=== PATIENT | female | born 1975 | race American Indian/Alaskan Native ===

== ENCOUNTER 2018-02-23 19:10 | Emergency (ER) | payer SELFPAY ==
[2018-02-23 19:53] LABS: Basophils # (Auto) 0.3 K/mm3 (0.0-0.1); Basophils % (Auto) 2.6 % (0.0-1.8); Eosinophils # (Auto) 0.1 K/mm3 (0.0-0.4); Eosinophils % (Auto) 0.9 % (0.0-4.3); Hematocrit 39.1 % (30.3-42.9); Hemoglobin 13.7 gm/dl (10.1-14.3); Lymphocytes % (Auto) 20.7 % (13.4-35.0); Mean Corpuscular HGB Conc 35 % (30-34); Mean Corpuscular Hemoglobin 33 pg (28-32); Mean Corpuscular Volume 94 fl (79-97); Monocytes # (Auto) 0.9 K/mm3 (0.0-0.8); Monocytes % (Auto) 8.8 % (0.0-7.3); Platelet Count 334 K/mm3 (140-440); Red Blood Count 4.15 M/mm3 (3.65-5.03); Red Cell Distribution Width 13.1 % (13.2-15.2)
--- NOTE | 2018-02-23 19:57 | XRay Report ---
FINAL REPORT PROCEDURE: XR KNEE 3V RT TECHNIQUE: RIGHT knee radiographs, AP, lateral and oblique views. CPT 85497 HISTORY: right knee pain COMPARISON: No prior studies are available for comparison. FINDINGS: No evidence of fracture, dislocation or joint effusion. Small marginal osteophytic spurs project from the patellar femoral joint space. Joint spaces otherwise are well preserved. IMPRESSION: Mild osteoarthritic changes patellar femoral joint space otherwise negative exam..
[2018-02-23 20:18] LABS: Alanine Aminotransferase 21 units/L (7-56); Albumin 4.1 g/dL (3.9-5); BUN/Creatinine Ratio 13; Blood Urea Nitrogen 12 mg/dL (7-17); Calcium 8.8 mg/dL (8.4-10.2); Hemolysis Index 8; Lipase 33 units/L (13-60)
[2018-02-23 20:21] LABS: Bilirubin,Urine NEG (Negative); Blood,Urine NEG (Negative); Color,Urine Yellow (Yellow); Mucus,Urine FEW /HPF; Protein,Urine <15 mg/dL mg/dL (Negative); RBC,Urine < 1.0 /HPF (0.0-6.0); Urobilinogen,Urine < 2.0 mg/dL (<2.0); WBC,Urine < 1.0 /HPF (0.0-6.0)
[2018-02-24] MEDS ORDERED: ALUM-MAG HYDROX-SIMETH 200-200-20MG/5ML PO ONE (02:08)
[2018-02-24] MEDS ORDERED: LIDOCAINE VISCOUS 2% PO ONE (02:08)
[2018-02-24] MEDS ORDERED: PROTONIX PO ONE (02:09)
--- NOTE | 2018-02-24 02:18 | Emergency Department Report ---
ED Abdominal Pain HPI - General Chief Complaint: Abdominal Pain Stated Complaint: STOMACH,LEG PAIN,NAUSEA Time Seen by Provider: 02/24/18 02:02 Source: patient Mode of arrival: Ambulatory Limitations: No Limitations - History of Present Illness Initial Comments: 42-year-old woman with history of recurrent epigastric abdominal pain secondary to ulcers, has been noncompliant with medications for several months, and has been having exacerbation over the past several weeks of recurrent epigastric discomfort on an intermittent basis. She has not had any nausea or vomiting, no hematemesis, no melena, and abdominal pain is moderate in intensity, localized to the epigastrium, and without radiation.. Patient also has a secondary complaint of chronic pain of her right knee, atraumatic, which has been developing over months. She's not had any prior evaluation for this, but has routine aching of moderate intensity, without radiation, without focal weakness of the lower extremity. Left knee is not tender. MD Complaint: abdominal pain -: Gradual, week(s) (3-4) Location: epigastric Radiation: none Migration to: no migration Severity scale (0 -10): 6 Quality: aching Improves With: eating Worsens With: nothing Associated Symptoms: denies: nausea, vomiting, constipation, hematemesis, hematochezia, melena Treatments Prior to Arrival: antacids - Related Data LMP (females 10-50): other (prior tubal ligation) Previous Rx's Medication Instructions Recorded Last Taken Type Lidocaine Viscous 2% 5 ml PO QID PRN #100 ml 02/24/18 Unknown Rx Omeprazole 20 mg PO DAILY #30 tablet. 02/24/18 Unknown Rx traMADol [Ultram 50 MG tab] 50 mg PO Q6HR PRN #30 tablet 02/24/18 Unknown Rx Allergies Allergy/AdvReac Type Severity Reaction Status Date / Time No Known Allergies Allergy Unverified 02/23/18 19:25 ED Review of Systems ROS: Stated complaint: STOMACH,LEG PAIN,NAUSEA Other details as noted in HPI Constitutional: denies: chills, fever Eyes: denies: eye pain, eye discharge, vision change ENT: denies: ear pain, throat pain Respiratory: denies: cough, shortness of breath, wheezing Cardiovascular: denies: chest pain, palpitations Endocrine: no symptoms reported Gastrointestinal: as per HPI, abdominal pain, nausea. denies: vomiting, diarrhea, constipation, hematemesis, melena, hematochezia Genitourinary: denies: urgency, dysuria, discharge Musculoskeletal: denies: back pain, joint swelling, arthralgia Skin: denies: rash, lesions Neurological: denies: headache, weakness, paresthesias Psychiatric: denies: anxiety, depression Hematological/Lymphatic: denies: easy bleeding, easy bruising ED Past Medical Hx - Past Medical History Hx Hypertension: Yes Hx GERD: Yes (ulcer disease) Additional medical history: Gastric Ulcers - Surgical History Hx Cholecystectomy: Yes Additional Surgical History: C section X4. Hysterectomy. Tubal ligation. - Social History Smoking Status: Never Smoker Substance Use Type: None - Medications Home Medications: Home Medications Medication Instructions Recorded Confirmed Last Taken Type Lidocaine Viscous 2% 5 ml PO QID PRN #100 ml 02/24/18 Unknown Rx Omeprazole 20 mg PO DAILY #30 tablet. 02/24/18 Unknown Rx traMADol [Ultram 50 MG tab] 50 mg PO Q6HR PRN #30 tablet 02/24/18 Unknown Rx ED Physical Exam - General Limitations: No Limitations General appearance: alert, in no apparent distress - Head Head exam: Present: atraumatic, normocephalic - Eye Eye exam: Present: normal appearance - ENT ENT exam: Present: mucous membranes moist - Neck Neck exam: Present: normal inspection - Respiratory Respiratory exam: Present: normal lung sounds bilaterally. Absent: respiratory distress - Cardiovascular Cardiovascular Exam: Present: regular rate, normal rhythm. Absent: systolic murmur, diastolic murmur, rubs, gallop - GI/Abdominal GI/Abdominal exam: Present: soft, tenderness (epigastrium, without radiation), normal bowel sounds. Absent: guarding, rebound - Rectal Rectal exam: Present: deferred - Extremities Exam Extremities exam: Present: normal inspection - Back Exam Back exam: Present: normal inspection - Neurological Exam Neurological exam: Present: alert, oriented X3 - Psychiatric Psychiatric exam: Present: normal affect, normal mood - Skin Skin exam: Present: warm, dry, intact, normal color. Absent: rash ED Course Vital Signs 02/23/18 19:18 Temperature 98.5 F Pulse Rate 74 Respiratory 16 Rate Blood Pressure 170/106 O2 Sat by Pulse 97 Oximetry - Reevaluation(s) Reevaluation #1: 02/24/18 03:03 Patient significantly improved after oral GI cocktail and pantoprazole, still has mild discomfort, abdomen and skin benign, and she feels ready for discharge home. ED Medical Decision Making - Lab Data Result diagrams: 02/23/18 19:30 02/23/18 19:30 - Radiology Data Radiology results: report reviewed Patient has mild patellofemoral osteoarthritis with osteophyte formation in the right knee joint, but otherwise no fracture or dislocation or bony lucencies. - Medical Decision Making Patient has a clinically benign abdomen with mild localized tenderness in the epigastrium, with known history of gastritis secondary to ulcer disease, and noncompliance with medications. Patient was medicated with topical lidocaine ingested orally, with significant relief. Patient also has x-ray findings of early arthritis, which she can treat with rest, cool compresses, and routine use of tramadol, since she has gastritis, which would likely be exacerbated by nonsteroidal anti-inflammatories - Differential Diagnosis gastritis, ulcer exacerbation, osteoarthritis knee Critical Care Time: No Critical care attestation.: If time is entered above; I have spent that time in minutes in the direct care of this critically ill patient, excluding procedure time. ED Disposition Clinical Impression: Gastritis Qualifiers: Gastritis type: unspecified gastritis Chronicity: acute Disposition: DC-01 TO HOME OR SELFCARE Is pt being admited?: No Does the pt Need Aspirin: No Condition: Stable Instructions: Osteoarthritis (ED) Additional Instructions: Resume taking her antacids, and we have provided a prescription for omeprazole to take daily. He may provide supplements with Mylanta or Maalox, and avoid spicy foods and fatty foods, and greasy foods. You also have arthritis of her right knee, which is degenerative, which her case is mild, and this can be treated with mild pain medication, tramadol, and cool compresses when you have exacerbations. Have follow-up with your doctor for further care. We recommended to avoid the use of [id number] medication such as NSAIDs, as this will aggravate her pre-existing gastritis, which he can take Tylenol for mild discomfort. He checked by her doctor in the following week. Prescriptions: Lidocaine Viscous 2% 5 ml PO QID PRN #100 ml PRN Reason: Pain Omeprazole 20 mg PO DAILY #30 tablet. traMADol [Ultram 50 MG tab] 50 mg PO Q6HR PRN #30 tablet PRN Reason: Pain Referrals: BRITTANI GALAN MD [Primary Care Provider] - 3-5 Days Time of Disposition: 02:22
[2018-02-24 03:13] VITALS: BP 168/89
== END 2018-02-24 03:13 | disposition home or self-care (01) ==
LOC: ED 19:10
DX: K29.70 Gastritis, unspecified, without bleeding (principal); I10 Essential (primary) hypertension; K21.9 Gastro-esophageal reflux disease without esophagitis; Z90.49 Acquired absence of other specified parts of digestive tract; Z90.710 Acquired absence of both cervix and uterus; Z98.51 Tubal ligation status
CPT/HCPCS: 36415; 80053; 81001; 83690; 85025; 99284

== ENCOUNTER 2018-07-08 08:55 | Emergency (ER) | payer OTHER, MEDICARE ==
--- NOTE | 2018-07-08 10:21 | Emergency Department Report ---
Minor Respiratory - HPI Chief Complaint: Upper Respiratory Infection Stated Complaint: STOMACH PAIN FLU Time Seen by Provider: 07/08/18 10:12 Duration: 3 Days Pain Location: Chest Severity: moderate Minor Respiratory: Yes Rhinorrhea, Yes Able to Tolerate Fluids, Yes Cough ( document of yellow sputum), Yes Fever (subjective), No Sore Throat, No Ear Pain , No Sick Contacts, No Hemoptysis, No Chest Pain, No Shortness of Breath ED Review of Systems ROS: Stated complaint: STOMACH PAIN FLU Other details as noted in HPI Comment: All other systems reviewed and negative ED Past Medical Hx - Past Medical History Hx Hypertension: Yes Hx GERD: Yes (ulcer disease) Additional medical history: Gastric Ulcers - Surgical History Past Surgical History?: Yes Hx Cholecystectomy: Yes Additional Surgical History: C section X4. Hysterectomy. Tubal ligation. - Social History Smoking Status: Never Smoker Substance Use Type: None - Medications Home Medications: Home Medications Medication Instructions Recorded Confirmed Last Taken Type Lidocaine Viscous 2% 5 ml PO QID PRN #100 ml 02/24/18 Unknown Rx Omeprazole 20 mg PO DAILY #30 tablet. 02/24/18 Unknown Rx traMADol [Ultram 50 MG tab] 50 mg PO Q6HR PRN #30 tablet 02/24/18 Unknown Rx ALBUTEROL Inhaler (OR & NICU) 2 puff IH QID PRN #1 inhalation 07/08/18 Unknown Rx [ProAir HFA Inhaler] Azithromycin [Zithromax] 250 mg PO DAILY #6 tablet 07/08/18 Unknown Rx Benzonatate [Tessalon Perles] 100 mg PO Q8HR #10 capsule 07/08/18 Unknown Rx predniSONE [Deltasone] 20 mg PO QDAY #5 tab 07/08/18 Unknown Rx Minor Respiratory Exam - Exam General: Vital signs noted. No distress. Alert and acting appropriately. HEENT: Yes Moist Mucous Membranes, No Pharyngeal Erythema, No Pharyngeal Exudates, No Rhinorrhea, No Conjuctival Injection, No Frontal Tenderness, No Maxillary Tenderness Ear: Neither TM Bulge, Neither TM Erythema, Neither EAC Pain, Neither EAC Discharge Neck: Yes Supple, No Adenopathy Lungs: Yes Good Air Exchange, No Wheezes, No Ronchi, No Stridor, No Cough, No Labored Respirations, No Retractions, No Use of Accessory Muscles, No Other Abnormal Lung Sounds Heart: Yes Regular, No Murmur Abdomen: Yes Normal Bowel Sounds, No Tenderness, No Peritoneal Signs Skin: No Rash, No Edema Neurologic: Alert and oriented, no deficits. Musculoskeletal: Unremarkable. ED Course Vital Signs 07/08/18 09:30 Temperature 99.2 F Pulse Rate 73 Respiratory 16 Rate Blood Pressure 161/100 O2 Sat by Pulse 100 Oximetry ED Medical Decision Making - Medical Decision Making She'll be treated for smokers bronchitis and be discharged home. Critical care attestation.: If time is entered above; I have spent that time in minutes in the direct care of this critically ill patient, excluding procedure time. ED Disposition Clinical Impression: Upper respiratory infection Qualifiers: URI type: unspecified URI Qualified Code(s): J06.9 - Acute upper respiratory infection, unspecified Disposition: - TO HOME OR SELFCARE Is pt being admited?: No Does the pt Need Aspirin: No Condition: Stable Instructions: Upper Respiratory Infection (ED) Referrals: PRIMARY CARE, [Primary Care Provider] - 3-5 Days Time of Disposition: 10:21
[2018-07-08 10:34] VITALS: BP 152/76
== END 2018-07-08 10:32 | disposition home or self-care (01) ==
LOC: ED 08:55
DX: J06.9 Acute upper respiratory infection, unspecified (principal); I10 Essential (primary) hypertension; K21.9 Gastro-esophageal reflux disease without esophagitis; Z90.710 Acquired absence of both cervix and uterus; Z98.51 Tubal ligation status
CPT/HCPCS: 99282

== ENCOUNTER 2018-08-25 08:55 | Emergency (ER) | payer OTHER, MEDICARE ==
[2018-08-25 09:08] VITALS: BP 144/98
--- NOTE | 2018-08-25 10:20 | Emergency Department Report ---
ED ENT HPI - General Chief complaint: Dental/Oral Stated complaint: TOOTHACHE Time Seen by Provider: 08/25/18 10:01 Source: patient Mode of arrival: Ambulatory Limitations: No Limitations - History of Present Illness Initial comments: This is a 42-year-old female nontoxic, well nourished in appearance, no acute signs of distress presents to the ED with c/o of right lower toothache 2 weeks. Patient denies following up with a dentist. Patient otherwise denies any head trauma. Patient describes toothache as aching level of 8 out of 10. Patient denies any facial swelling. Patient denies any numbness, tingling, fever, chills, headache, stiff neck, abdominal pain, chest pain, shortness of breath. Patient denies any drug allergies. MD complaint: tooth pain -: week(s) (2) Location: tooth # 1 - pain here Severity: mild Severity scale (0 -10): 8 Quality: aching Consistency: constant Improves with: none Worsens with: none Context- Dental: history of dental caries, poor dental care Associated Symptoms: gum swelling, toothache. denies: fever, cough, pain with swallowing, sore throat, tinnitus, hearing loss, discharge from ear, rhinorrhea - Related Data Previous Rx's Medication Instructions Recorded Last Taken Type Lidocaine Viscous 2% 5 ml PO QID PRN #100 ml 02/24/18 Unknown Rx Omeprazole 20 mg PO DAILY #30 tablet 02/24/18 Unknown Rx traMADol [Ultram 50 MG tab] 50 mg PO Q6HR PRN #30 tablet 02/24/18 Unknown Rx ALBUTEROL Inhaler (OR & NICU) 2 puff IH QID PRN #1 inhalation 07/08/18 Unknown Rx [ProAir HFA Inhaler] Azithromycin [Zithromax] 250 mg PO DAILY #6 tablet 07/08/18 Unknown Rx Benzonatate [Tessalon Perles] 100 mg PO Q8HR #10 capsule 07/08/18 Unknown Rx predniSONE [Deltasone] 20 mg PO QDAY #5 tab 07/08/18 Unknown Rx Acetaminophen/Codeine [Tylenol 1 tab PO Q6H PRN #12 tab 08/25/18 Unknown Rx /Codeine # 3 tab] Amoxicillin/K Clav Tab [Augmentin 1 tab PO Q12HR #20 tab 08/25/18 Unknown Rx 875 mg] Chlorhexidine Mouthwash [Peridex] 15 ml MM BID #1 bottle 08/25/18 Unknown Rx Allergies Allergy/AdvReac Type Severity Reaction Status Date / Time No Known Allergies Allergy Verified 08/25/18 09:01 ED Dental HPI - General Chief complaint: Dental/Oral Stated complaint: TOOTHACHE Time Seen by Provider: 08/25/18 10:01 Source: patient Mode of arrival: Ambulatory Limitations: No Limitations - Related Data Previous Rx's Medication Instructions Recorded Last Taken Type Lidocaine Viscous 2% 5 ml PO QID PRN #100 ml 02/24/18 Unknown Rx Omeprazole 20 mg PO DAILY #30 tablet. 02/24/18 Unknown Rx traMADol [Ultram 50 MG tab] 50 mg PO Q6HR PRN #30 tablet 02/24/18 Unknown Rx ALBUTEROL Inhaler (OR & NICU) 2 puff IH QID PRN #1 inhalation 07/08/18 Unknown Rx [ProAir HFA Inhaler] Azithromycin [Zithromax] 250 mg PO DAILY #6 tablet 07/08/18 Unknown Rx Benzonatate [Tessalon Perles] 100 mg PO Q8HR #10 capsule 07/08/18 Unknown Rx predniSONE [Deltasone] 20 mg PO QDAY #5 tab 07/08/18 Unknown Rx Acetaminophen/Codeine [Tylenol 1 tab PO Q6H PRN #12 tab 08/25/18 Unknown Rx /Codeine # 3 tab] Amoxicillin/K Clav Tab [Augmentin 1 tab PO Q12HR #20 tab 08/25/18 Unknown Rx 875 mg] Chlorhexidine Mouthwash [Peridex] 15 ml MM BID #1 bottle 08/25/18 Unknown Rx Allergies Allergy/AdvReac Type Severity Reaction Status Date / Time No Known Allergies Allergy Verified 08/25/18 09:01 ED Review of Systems ROS: Stated complaint: TOOTHACHE Other details as noted in HPI Constitutional: denies: chills, fever Eyes: denies: eye pain, eye discharge, vision change ENT: dental pain. denies: ear pain, throat pain Respiratory: denies: cough, shortness of breath, wheezing Cardiovascular: denies: chest pain, palpitations Endocrine: no symptoms reported Gastrointestinal: denies: abdominal pain, nausea, diarrhea Genitourinary: denies: urgency, dysuria, discharge Musculoskeletal: denies: back pain, joint swelling, arthralgia Skin: denies: rash, lesions Neurological: denies: headache, weakness, paresthesias Psychiatric: denies: anxiety, depression Hematological/Lymphatic: denies: easy bleeding, easy bruising ED Past Medical Hx - Past Medical History Hx Hypertension: Yes Hx GERD: Yes (ulcer disease) Additional medical history: Gastric Ulcers - Surgical History Hx Cholecystectomy: Yes Additional Surgical History: C section X4. Hysterectomy. Tubal ligation. - Social History Smoking Status: Never Smoker Substance Use Type: None - Medications Home Medications: Home Medications Medication Instructions Recorded Confirmed Last Taken Type Lidocaine Viscous 2% 5 ml PO QID PRN #100 ml 02/24/18 Unknown Rx Omeprazole 20 mg PO DAILY #30 tablet. 02/24/18 Unknown Rx traMADol [Ultram 50 MG tab] 50 mg PO Q6HR PRN #30 tablet 02/24/18 Unknown Rx ALBUTEROL Inhaler (OR & NICU) 2 puff IH QID PRN #1 inhalation 07/08/18 Unknown Rx [ProAir HFA Inhaler] Azithromycin [Zithromax] 250 mg PO DAILY #6 tablet 07/08/18 Unknown Rx Benzonatate [Tessalon Perles] 100 mg PO Q8HR #10 capsule 07/08/18 Unknown Rx predniSONE [Deltasone] 20 mg PO QDAY #5 tab 07/08/18 Unknown Rx Acetaminophen/Codeine [Tylenol 1 tab PO Q6H PRN #12 tab 08/25/18 Unknown Rx /Codeine # 3 tab] Amoxicillin/K Clav Tab [Augmentin 1 tab PO Q12HR #20 tab 08/25/18 Unknown Rx 875 mg] Chlorhexidine Mouthwash [Peridex] 15 ml MM BID #1 bottle 08/25/18 Unknown Rx ED Physical Exam - General Limitations: No Limitations General appearance: alert, in no apparent distress - Head Head exam: Present: atraumatic, normocephalic - Eye Eye exam: Present: normal appearance - ENT ENT exam: Present: mucous membranes moist - Expanded ENT Exam Expanded Ear exam: Present: normal external inspection Mouth exam: Present: normal external inspection, tongue normal. Absent: drooling, trismus, muffled voice Teeth exam: Present: dental caries, fractured tooth #, dental tenderness #, gingival enlargement, other (no facial swelling) 1 - Fractured, Dental Tenderness Throat exam: Positive: other (Uvula midline. No abscess or swelling noted.). Negative: tonsillar erythema, tonsillomegaly, tonsillar exudate, R peritonsillar mass, L peritonsillar mass - Neck Neck exam: Present: normal inspection, full ROM. Absent: tenderness, meningismus, lymphadenopathy - Respiratory Respiratory exam: Present: normal lung sounds bilaterally. Absent: respiratory distress, wheezes, rales, rhonchi, stridor, chest wall tenderness, accessory muscle use, decreased breath sounds, prolonged expiratory - Cardiovascular Cardiovascular Exam: Present: regular rate, normal rhythm, normal heart sounds. Absent: irregular rhythm, systolic murmur, diastolic murmur, rubs, gallop - GI/Abdominal GI/Abdominal exam: Present: soft, normal bowel sounds - Extremities Exam Extremities exam: Present: normal inspection - Back Exam Back exam: Present: normal inspection - Neurological Exam Neurological exam: Present: alert, oriented X3 - Psychiatric Psychiatric exam: Present: normal affect, normal mood - Skin Skin exam: Present: warm, dry, intact, normal color. Absent: rash ED Course Vital Signs 08/25/18 09:01 Temperature 98.3 F Pulse Rate 70 Respiratory 18 Rate Blood Pressure 144/98 O2 Sat by Pulse 99 Oximetry - Reevaluation(s) Reevaluation #1: 08/25/18 10:21 Patient is speaking in full sentences with no signs of distress noted. Critical care attestation.: If time is entered above; I have spent that time in minutes in the direct care of this critically ill patient, excluding procedure time. ED Disposition Clinical Impression: Dental caries, Gingivitis Disposition: - TO HOME OR SELFCARE Is pt being admited?: No Does the pt Need Aspirin: No Condition: Stable Instructions: Dental Caries (ED), Gingivitis (ED) Additional Instructions: Follow-up with a dentist doctor in 3-5 days or if symptoms worsen and continue return to emergency room as soon as possible. Do not operate any machinery while taking Tylenol with codeine as this may cause drowsiness. Prescriptions: Acetaminophen/Codeine [Tylenol /Codeine # 3 tab] 1 tab PO Q6H PRN #12 tab PRN Reason: Pain , Severe (7-10) Amoxicillin/K Clav Tab [Augmentin 875 mg] 1 tab PO Q12HR #20 tab Chlorhexidine Mouthwash [Peridex] 15 ml MM BID #1 bottle Referrals: PRIMARY CARE, [Primary Care Provider] - 3-5 Days AVILA VIRK [Registered Nurse] - 3-5 Days [facility] [Outside] - 3-5 Days Forms: Work/School Release Form(ED)
== END 2018-08-25 10:39 | disposition home or self-care (01) ==
LOC: ED 08:55
DX: K02.9 Dental caries, unspecified (principal); K05.00 Acute gingivitis, plaque induced; I10 Essential (primary) hypertension; K21.9 Gastro-esophageal reflux disease without esophagitis; Z90.49 Acquired absence of other specified parts of digestive tract; Z98.51 Tubal ligation status; Z90.710 Acquired absence of both cervix and uterus
CPT/HCPCS: 99282

== ENCOUNTER 2019-01-31 09:38 | Emergency (ER) | payer OTHER, MEDICARE ==
[2019-01-31] MEDS ORDERED: TORADOL IM ONE (10:48)
[2019-01-31] MEDS ORDERED: ZOFRAN ODT PO ONE (10:48)
[2019-01-31] MEDS ORDERED: DECADRON IM ONE (10:48)
--- NOTE | 2019-01-31 10:51 | Emergency Department Report ---
ED Headache HPI - General Chief Complaint: Headache Stated Complaint: HEADACHE/VISION BLURRY/NAUSEA Time Seen by Provider: 01/31/19 10:23 - History of Present Illness Initial Comments: Patient is a 43-year-old female who has a past medical history of migraines who is presenting with headache. Patient states the headache is mostly left-sided and is associated with light sensitivity No A sensitivity. Patient is nauseous but not have any vomiting. Patient states headache started this morning. She denies any fevers chills or neck stiffness, cold or congestion Allergies/Adverse Reactions: Allergies No Known Allergies Allergy (Verified 01/31/19 09:40) Home Medications: Ambulatory Orders Lidocaine Viscous 2% 5 ml PO QID PRN #100 ml 02/24/18 Omeprazole 20 mg PO DAILY #30 tablet. 02/24/18 traMADol [Ultram 50 MG tab] 50 mg PO Q6HR PRN #30 tablet 02/24/18 ALBUTEROL Inhaler (OR & NICU) [ProAir HFA Inhaler] 2 puff IH QID PRN #1 inhalation 07/08/18 Benzonatate [Tessalon Perles] 100 mg PO Q8HR #10 capsule 07/08/18 predniSONE [Deltasone] 20 mg PO QDAY #5 tab 07/08/18 Acetaminophen/Codeine [Tylenol /Codeine # 3 tab] 1 tab PO Q6H PRN #12 tab 1 Amoxicillin/K Clav Tab [Augmentin 875 mg] 1 tab PO Q12HR #20 tab 08/25/18 Amlodipine Besylate [Norvasc] 5 mg PO QDAY #30 tablet 11/09/18 Dicyclomine [Bentyl] 10 mg PO QID PRN #20 capsule 11/09/18 Famotidine [Pepcid] 20 mg PO BID #30 tablet 11/09/18 Ondansetron [Zofran Odt] 4 mg PO Q8HR PRN #20 tab.rapdis 11/09/18 Promethazine [Phenergan SUPPOS] 50 mg NM Q6H PRN #15 supp.rect 11/09/18 Butalb/Acetamin/Caff 50-325-40 [Fioricet] 1 tab PO Q8HR PRN #10 tablet 01/31/19 Ibuprofen [Ibu] 600 mg PO Q6HR PRN #20 tablet 01/31/19 Ondansetron [Zofran Odt] 4 mg PO Q8HR #10 tab.rapdis 01/31/19 ED Review of Systems ROS: Stated complaint: HEADACHE/VISION BLURRY/NAUSEA Other details as noted in HPI Comment: All other systems reviewed and negative ED Past Medical Hx - Past Medical History Hx Hypertension: Yes Hx GERD: Yes Hx Headaches / Migraines: Yes Additional medical history: Gastric Ulcers - Surgical History Hx Cholecystectomy: Yes Additional Surgical History: C section X4. Hysterectomy. Tubal ligation. - Social History Smoking Status: Never Smoker Substance Use Type: None - Medications Home Medications: Home Medications Medication Instructions Recorded Confirmed Last Taken Type Lidocaine Viscous 2% 5 ml PO QID PRN #100 ml 02/24/18 11/09/18 Unknown Rx Omeprazole 20 mg PO DAILY #30 tablet. 02/24/18 11/09/18 Unknown Rx traMADol [Ultram 50 MG tab] 50 mg PO Q6HR PRN #30 tablet 02/24/18 11/09/18 Unknown Rx ALBUTEROL Inhaler (OR & NICU) 2 puff IH QID PRN #1 inhalation 07/08/18 11/09/18 Unknown Rx [ProAir HFA Inhaler] Benzonatate [Tessalon Perles] 100 mg PO Q8HR #10 capsule 07/08/18 11/09/18 Unknown Rx predniSONE [Deltasone] 20 mg PO QDAY #5 tab 07/08/18 11/09/18 Unknown Rx Acetaminophen/Codeine [Tylenol 1 tab PO Q6H PRN #12 tab 08/25/18 11/09/18 Unknown Rx /Codeine # 3 tab] Amoxicillin/K Clav Tab [Augmentin 1 tab PO Q12HR #20 tab 08/25/18 11/09/18 Unknown Rx 875 mg] Amlodipine Besylate [Norvasc] 5 mg PO QDAY #30 tablet 11/09/18 Unknown Rx Dicyclomine [Bentyl] 10 mg PO QID PRN #20 capsule 11/09/18 Unknown Rx Famotidine [Pepcid] 20 mg PO BID #30 tablet 11/09/18 Unknown Rx Ondansetron [Zofran Odt] 4 mg PO Q8HR PRN #20 tab.rapdis 11/09/18 Unknown Rx Promethazine [Phenergan SUPPOS] 50 mg NM Q6H PRN #15 supp.rect 11/09/18 Unknown Rx Butalb/Acetamin/Caff 50-325-40 1 tab PO Q8HR PRN #10 tablet 01/31/19 Unknown Rx [Fioricet] Ibuprofen [Ibu] 600 mg PO Q6HR PRN #20 tablet 01/31/19 Unknown Rx Ondansetron [Zofran Odt] 4 mg PO Q8HR #10 tab.rapdis 01/31/19 Unknown Rx ED Physical Exam - General Limitations: No Limitations General appearance: alert, in no apparent distress - Head Head exam: Present: atraumatic, normocephalic - Eye Eye exam: Present: normal appearance - ENT ENT exam: Present: mucous membranes moist - Neck Neck exam: Present: normal inspection - Respiratory Respiratory exam: Present: normal lung sounds bilaterally. Absent: respiratory distress, wheezes, rales, rhonchi - Cardiovascular Cardiovascular Exam: Present: regular rate, normal rhythm. Absent: systolic murmur, diastolic murmur, rubs, gallop - GI/Abdominal GI/Abdominal exam: Present: soft, normal bowel sounds. Absent: distended, tenderness, guarding, rebound - Extremities Exam Extremities exam: Present: normal inspection - Back Exam Back exam: Present: normal inspection - Neurological Exam Neurological exam: Present: alert, oriented X3 - Psychiatric Psychiatric exam: Present: normal affect, normal mood - Skin Skin exam: Present: warm, dry, intact, normal color. Absent: rash ED Course Vital Signs 01/31/19 09:45 Temperature 97.8 F Pulse Rate 91 H Respiratory 16 Rate Blood Pressure 166/94 O2 Sat by Pulse 97 Oximetry ED Medical Decision Making - Medical Decision Making Patient given meds for symptomatic relief will be discharged home. Critical care attestation.: If time is entered above; I have spent that time in minutes in the direct care of this critically ill patient, excluding procedure time. ED Disposition Clinical Impression: Migraine headache Qualifiers: Migraine type: unspecified Status migrainosus presence: without status migrainosus Intractability: not intractable Qualified Code(s): G43.909 - Migraine, unspecified, not intractable, without status migrainosus Disposition: - TO HOME OR SELFCARE Is pt being admited?: No Does the pt Need Aspirin: No Condition: Stable Instructions: Migraine Headache (ED) Forms: Work/School Release Form(ED) Time of Disposition: 10:51
[2019-01-31 11:05] VITALS: BP 144/95
== END 2019-01-31 11:24 | disposition home or self-care (01) ==
LOC: ED 09:38
DX: G43.909 Migraine, unspecified, not intractable, without status migrainosus (principal); I10 Essential (primary) hypertension; K21.9 Gastro-esophageal reflux disease without esophagitis; Z90.49 Acquired absence of other specified parts of digestive tract
CPT/HCPCS: 96372; 99282; J1100; J1885; Q0162

== ENCOUNTER 2019-02-17 10:55 | Emergency (ER) | payer OTHER, MEDICARE ==
--- NOTE | 2019-02-17 11:26 | Emergency Department Report ---
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 Due to findings the following was ordered: XR right hand/wrist ED Disposition for MSE Condition: Stable
--- NOTE | 2019-02-17 12:55 | XRay Report ---
RIGHT WRIST, 2 views: History: Right wrist pain. Bone mineralization is within normal limits. There is no evidence for fracture, dislocation, ligamentous injury or bony erosions. Small subchondral cysts are suspected in the scaphoid and capitate bones consistent with early osteoarthritis. IMPRESSION: Minimal osteoarthritis.
--- NOTE | 2019-02-17 12:56 | XRay Report ---
RIGHT HAND, 2 views: History: Right hand pain. The bony architecture is intact. Bony alignment is normal. No soft tissue abnormalities are seen. The joint spaces appear preserved. IMPRESSION: Normal right hand.
--- NOTE | 2019-02-17 12:57 | Emergency Department Report ---
HPI - General Chief Complaint: Extremity Injury, Upper Time Seen by Provider: 02/17/19 11:22 - HPI HPI: Pt presents to the ED for right hand pain and right wrist pain and swelling x 3 weeks She denies any injury or trauma to the head. Patient states that this is a first and she is experiencing this wrist pain. 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 Hysterectomy. Tubal ligation. - Social History Smoking Status: Unknown if ever smoked Substance Use Type: None - Medications Home Medications: Home Medications Medication Instructions Recorded Confirmed Last Taken Type Lidocaine Viscous 2% 5 ml PO QID PRN #100 ml 02/24/18 11/09/18 Unknown Rx Omeprazole 20 mg PO DAILY #30 tablet. 02/24/18 11/09/18 Unknown Rx traMADol [Ultram 50 MG tab] 50 mg PO Q6HR PRN #30 tablet 02/24/18 11/09/18 Unknown Rx ALBUTEROL Inhaler (OR & NICU) 2 puff IH QID PRN #1 inhalation 07/08/18 11/09/18 Unknown Rx [ProAir HFA Inhaler] Benzonatate [Tessalon Perles] 100 mg PO Q8HR #10 capsule 07/08/18 11/09/18 Unknown Rx predniSONE [Deltasone] 20 mg PO QDAY #5 tab 07/08/18 11/09/18 Unknown Rx Acetaminophen/Codeine [Tylenol 1 tab PO Q6H PRN #12 tab 08/25/18 11/09/18 Unknown Rx /Codeine # 3 tab] Amoxicillin/K Clav Tab [Augmentin 1 tab PO Q12HR #20 tab 08/25/18 11/09/18 Unknown Rx 875 mg] Amlodipine Besylate [Norvasc] 5 mg PO QDAY #30 tablet 11/09/18 Unknown Rx Dicyclomine [Bentyl] 10 mg PO QID PRN #20 capsule 11/09/18 Unknown Rx Famotidine [Pepcid] 20 mg PO BID #30 tablet 11/09/18 Unknown Rx Ondansetron [Zofran Odt] 4 mg PO Q8HR PRN #20 tab.rapdis 11/09/18 Unknown Rx Promethazine [Phenergan SUPPOS] 50 mg NC Q6H PRN #15 supp.rect 11/09/18 Unknown Rx Butalb/Acetamin/Caff 50-325-40 1 tab PO Q8HR PRN #10 tablet 01/31/19 Unknown Rx [Fioricet] Ondansetron [Zofran Odt] 4 mg PO Q8HR #10 tab.rapdis 01/31/19 Unknown Rx Cyclobenzaprine [Flexeril] 10 mg PO TID #20 tablet 02/17/19 Unknown Rx Ibuprofen [Ibu] 600 mg PO Q6HR PRN #20 tablet 02/17/19 Unknown Rx ED Review of Systems ROS: Stated complaint: ARMS/HANDS SWOLLEN Other details as noted in HPI Comment: All other systems reviewed and negative Physical Exam - Physical Exam Vital Signs: Vital Signs 02/17/19 11:24 Temperature 98.1 F Pulse Rate 99 H Respiratory 18 Rate Blood Pressure 156/97 O2 Sat by Pulse 99 Oximetry Physical Exam: GENERAL: Alert and oriented x3, no apparent distress, Normal Gait, atraumatic. HEAD: Head is normocephalic and a-traumatic. EXTREMITIES/MUSCULOSKELETAL: No cyanosis, clubbing, rash, lesions or edema. Full ROM bilaterally. UE/LE Pulses 2+ bilaterally. LE and UE 5+ strength bilaterally, NEUROLOGIC: The patient is cooperative with no focal neurologic deficits. SKIN: Warm and dry, No lesions, No ulceration or induration present. ED Course Vital Signs 02/17/19 11:24 Temperature 98.1 F Pulse Rate 99 H Respiratory 18 Rate Blood Pressure 156/97 O2 Sat by Pulse 99 Oximetry ED Medical Decision Making - Radiology Data Radiology results: report reviewed, image reviewed X-ray shows no acute fracture or dislocation. - Medical Decision Making 43-year-old presents with arthritis/osteoarthrtis Discussed pain medication for pain relief. Discussed follow-up care physician. Patient is in no acute distress vital signs are stable Critical care attestation.: If time is entered above; I have spent that time in minutes in the direct care of this critically ill patient, excluding procedure time. ED Disposition Clinical Impression: Arthralgia of wrist Disposition: - TO HOME OR SELFCARE Is pt being admited?: No Does the pt Need Aspirin: No Condition: Stable Instructions: Arthralgia (ED), Osteoarthritis (ED) Additional Instructions: Make sure to follow up with the primary care physician as discussed. Take all your medications as you've been prescribed. If you have any worsening symptoms or develop new symptoms please return to ED immediately. Prescriptions: Cyclobenzaprine [Flexeril] 10 mg PO TID #20 tablet Ibuprofen [Ibu] 600 mg PO Q6HR PRN #20 tablet PRN Reason: Pain, Moderate (4-6) Referrals: JOELLEN HO MD [Primary Care Provider] - 3-5 Days [facility] [Outside] - 3-5 Days [facility] [Outside] - 3-5 Days Forms: Work/School Release Form(ED) Time of Disposition: 13:26
[2019-02-17] MEDS ORDERED: IBUPROFEN PO ONE (13:27)
[2019-02-18 18:51] VITALS: BP 148/90
== END 2019-02-17 13:42 | disposition home or self-care (01) ==
LOC: ED 10:55
DX: M25.531 Pain in right wrist (principal); R22.31 Localized swelling, mass and lump, right upper limb
CPT/HCPCS: 99283

== ENCOUNTER 2019-03-01 20:23 | Emergency (ER) | payer OTHER, MEDICARE ==
[2019-03-01 20:29] VITALS: BP 178/103
== END 2019-03-01 23:30 | disposition left against medical advice (07) ==
LOC: ED 20:23
DX: M79.672 Pain in left foot (principal); M79.671 Pain in right foot; Z53.21 Procedure and treatment not carried out due to patient leaving prior to being seen by health care provider

== ENCOUNTER 2019-03-02 10:05 | Emergency (ER) | payer OTHER, MEDICARE ==
[2019-03-02] MEDS ORDERED: IBUPROFEN PO ONE (13:09)
--- NOTE | 2019-03-02 13:21 | Emergency Department Report ---
ED Lower Extremity HPI - General Chief Complaint: Extremity Injury, Lower Stated Complaint: LEFT FOOT PAIN/COUGH Time Seen by Provider: 03/02/19 11:55 Source: patient Mode of arrival: Ambulatory Limitations: No Limitations - History of Present Illness Initial Comments: This is a 43-year-old female nontoxic, well nourished in appearance, no acute signs of distress presents to the ED with c/o of left foot pain 3 weeks. Patient stated that she twisted her foot 3 weeks ago and pain has not resolved. Patient denies any other trauma. Patient denies any numbness, tingling, fever, chills, nausea, vomiting, chest pain, shortness of breath, headache, stiff neck. Patient denies any joint swelling or joint redness. Patient denies decreased range of motion. Patient stated has decreased gait due to pain. Patient denies any allergies or significant past medical history. MD Complaint: foot injury -: week(s) (3) Injury: Foot: Left Severity: mild Severity scale (0 -10): 8 Improves With: immobilization Worsens With: weight bearing, movement, palpation Associated Symptoms: able to partially bear weight, ambulatory. denies: snap/pop sensation, swelling, numbness, tingling, unable to bear weight - Related Data Previous Rx's Medication Instructions Recorded Last Taken Type Lidocaine Viscous 2% 5 ml PO QID PRN #100 ml 02/24/18 Unknown Rx Omeprazole 20 mg PO DAILY #30 tablet. 02/24/18 Unknown Rx traMADol [Ultram 50 MG tab] 50 mg PO Q6HR PRN #30 tablet 02/24/18 Unknown Rx ALBUTEROL Inhaler (OR & NICU) 2 puff IH QID PRN #1 inhalation 07/08/18 Unknown Rx [ProAir HFA Inhaler] Benzonatate [Tessalon Perles] 100 mg PO Q8HR #10 capsule 07/08/18 Unknown Rx predniSONE [Deltasone] 20 mg PO QDAY #5 tab 07/08/18 Unknown Rx Acetaminophen/Codeine [Tylenol 1 tab PO Q6H PRN #12 tab 08/25/18 Unknown Rx /Codeine # 3 tab] Amoxicillin/K Clav Tab [Augmentin 1 tab PO Q12HR #20 tab 08/25/18 Unknown Rx 875 mg] Amlodipine Besylate [Norvasc] 5 mg PO QDAY #30 tablet 11/09/18 Unknown Rx Dicyclomine [Bentyl] 10 mg PO QID PRN #20 capsule 11/09/18 Unknown Rx Famotidine [Pepcid] 20 mg PO BID #30 tablet 11/09/18 Unknown Rx Ondansetron [Zofran Odt] 4 mg PO Q8HR PRN #20 tab.rapdis 11/09/18 Unknown Rx Promethazine [Phenergan SUPPOS] 50 mg AR Q6H PRN #15 supp.rect 11/09/18 Unknown Rx Butalb/Acetamin/Caff 50-325-40 1 tab PO Q8HR PRN #10 tablet 01/31/19 Unknown Rx [Fioricet] Ondansetron [Zofran Odt] 4 mg PO Q8HR #10 tab.rapdis 01/31/19 Unknown Rx Cyclobenzaprine [Flexeril] 10 mg PO TID #20 tablet 02/17/19 Unknown Rx Ibuprofen [Ibu] 600 mg PO Q6HR PRN #20 tablet 02/17/19 Unknown Rx Acetaminophen/Codeine [Tylenol 1 tab PO Q6H PRN #12 tab 03/02/19 Unknown Rx /Codeine # 3 tab] Ibuprofen [Motrin] 600 mg PO Q8H PRN #20 tablet 03/02/19 Unknown Rx Allergies Allergy/AdvReac Type Severity Reaction Status Date / Time No Known Allergies Allergy Verified 01/31/19 09:40 ED Review of Systems ROS: Stated complaint: LEFT FOOT PAIN/COUGH Other details as noted in HPI Constitutional: denies: chills, fever Eyes: denies: eye pain, eye discharge, vision change ENT: denies: ear pain, throat pain Respiratory: denies: cough, shortness of breath, wheezing Cardiovascular: denies: chest pain, palpitations Endocrine: no symptoms reported Gastrointestinal: denies: abdominal pain, nausea, diarrhea Genitourinary: denies: urgency, dysuria, discharge Musculoskeletal: denies: back pain, joint swelling, arthralgia Skin: denies: rash, lesions Neurological: denies: headache, weakness, paresthesias Psychiatric: denies: anxiety, depression Hematological/Lymphatic: denies: easy bleeding, easy bruising ED Past Medical Hx - Past Medical History Previous Medical History?: Yes Hx Hypertension: Yes Hx GERD: Yes Hx Headaches / Migraines: Yes Additional medical history: Gastric Ulcers - Surgical History Past Surgical History?: Yes Hx Cholecystectomy: Yes Additional Surgical History: C section X4. Hysterectomy. Tubal ligation. - Social History Smoking Status: Never Smoker Substance Use Type: None - Medications Home Medications: Home Medications Medication Instructions Recorded Confirmed Last Taken Type Lidocaine Viscous 2% 5 ml PO QID PRN #100 ml 02/24/18 11/09/18 Unknown Rx Omeprazole 20 mg PO DAILY #30 tablet. 02/24/18 11/09/18 Unknown Rx traMADol [Ultram 50 MG tab] 50 mg PO Q6HR PRN #30 tablet 02/24/18 11/09/18 Unknown Rx ALBUTEROL Inhaler (OR & NICU) 2 puff IH QID PRN #1 inhalation 07/08/18 11/09/18 Unknown Rx [ProAir HFA Inhaler] Benzonatate [Tessalon Perles] 100 mg PO Q8HR #10 capsule 07/08/18 11/09/18 Unknown Rx predniSONE [Deltasone] 20 mg PO QDAY #5 tab 07/08/18 11/09/18 Unknown Rx Acetaminophen/Codeine [Tylenol 1 tab PO Q6H PRN #12 tab 08/25/18 11/09/18 Unknown Rx /Codeine # 3 tab] Amoxicillin/K Clav Tab [Augmentin 1 tab PO Q12HR #20 tab 08/25/18 11/09/18 Unknown Rx 875 mg] Amlodipine Besylate [Norvasc] 5 mg PO QDAY #30 tablet 11/09/18 Unknown Rx Dicyclomine [Bentyl] 10 mg PO QID PRN #20 capsule 11/09/18 Unknown Rx Famotidine [Pepcid] 20 mg PO BID #30 tablet 11/09/18 Unknown Rx Ondansetron [Zofran Odt] 4 mg PO Q8HR PRN #20 tab.rapdis 11/09/18 Unknown Rx Promethazine [Phenergan SUPPOS] 50 mg AR Q6H PRN #15 supp.rect 11/09/18 Unknown Rx Butalb/Acetamin/Caff 50-325-40 1 tab PO Q8HR PRN #10 tablet 01/31/19 Unknown Rx [Fioricet] Ondansetron [Zofran Odt] 4 mg PO Q8HR #10 tab.rapdis 01/31/19 Unknown Rx Cyclobenzaprine [Flexeril] 10 mg PO TID #20 tablet 02/17/19 Unknown Rx Ibuprofen [Ibu] 600 mg PO Q6HR PRN #20 tablet 02/17/19 Unknown Rx Acetaminophen/Codeine [Tylenol 1 tab PO Q6H PRN #12 tab 03/02/19 Unknown Rx /Codeine # 3 tab] Ibuprofen [Motrin] 600 mg PO Q8H PRN #20 tablet 03/02/19 Unknown Rx ED Physical Exam - General Limitations: No Limitations General appearance: alert, in no apparent distress - Head Head exam: Present: atraumatic, normocephalic - Eye Eye exam: Present: normal appearance - Neck Neck exam: Present: normal inspection, full ROM. Absent: tenderness, meningismus, lymphadenopathy - Respiratory Respiratory exam: Present: normal lung sounds bilaterally. Absent: respiratory distress, wheezes, rales, rhonchi, stridor, chest wall tenderness, accessory muscle use, decreased breath sounds, prolonged expiratory - Cardiovascular Cardiovascular Exam: Present: regular rate, normal rhythm, normal heart sounds. Absent: irregular rhythm, systolic murmur, diastolic murmur, rubs, gallop - Extremities Exam Extremities exam: Present: normal inspection, full ROM, tenderness, normal capillary refill. Absent: joint swelling - Expanded Lower Extremity Exam Right Hip exam: Present: normal inspection, full ROM. Absent: tenderness Upper Leg exam: Present: normal inspection, full ROM. Absent: tenderness Knee exam: Present: normal inspection, full ROM. Absent: tenderness Lower Leg exam: Present: normal inspection, full ROM. Absent: tenderness Ankle exam: Present: normal inspection, full ROM. Absent: tenderness, swelling Foot/Toe exam: Present: normal inspection, full ROM, tenderness. Absent: swelling, abrasion, laceration, ecchymosis, deformity, crepidus, dislocation, erythema, amputation, foreign body, calcaneal tenderness, tenderness at base of 5th metatarsal, nail avulsion, subungual hematoma Neuro vascular tendon exam: Present: no vascular compromise Gait: Positive: observed and limited by pain - Back Exam Back exam: Present: normal inspection, full ROM - Neurological Exam Neurological exam: Present: alert, oriented X3 - Psychiatric Psychiatric exam: Present: normal affect, normal mood - Skin Skin exam: Present: warm, dry, intact, normal color. Absent: rash ED Course Vital Signs 03/02/19 03/02/19 10:12 13:18 Temperature 98.5 F Pulse Rate 67 Respiratory 16 20 Rate Blood Pressure 161/96 O2 Sat by Pulse 99 Oximetry - Reevaluation(s) Reevaluation #1: 03/02/19 13:21 Patient speaking in full sentences with no signs of distress noted. ED Lower Extremity MDM - Medical Decision Making This is a 43-year-old female that presents with left foot strain. Patient is stable and was examined by me. I referred patient to an orthopedic doctor for further evaluation for possible MRI. X-ray has been obtained and dictated by the radiologist. Patient is notified of the x-ray report with noted by the patient. Patient does have normal gait with no tenderness and no joint swelling. No ecchymosis. no joint redness or swelling. Not warm to touch. No signs of cellulites present. Patient was instructed to RICE therapy. Patient received Motrin for pain. Patient is discharged with Motrin. At time of discharge, the patient does not seem toxic or ill in appearance. No acute signs of distress noted. Patient agrees to discharge treatment plan of care. No further questions noted by the patient. Critical care attestation.: If time is entered above; I have spent that time in minutes in the direct care of this critically ill patient, excluding procedure time. ED Disposition Clinical Impression: Strain of left foot Qualifiers: Encounter type: initial encounter Qualified Code(s): S96.912A - Strain of unspecified muscle and tendon at ankle and foot level, left foot, initial encounter Disposition: - TO HOME OR SELFCARE Is pt being admited?: No Does the pt Need Aspirin: No Condition: Stable Instructions: RICE Therapy (ED) Additional Instructions: Follow-up with a orthopedic doctor in 3-5 days or if symptoms worsen and continue return to emergency room as soon as possible. Do not operate any machinery while taking Tylenol with codeine as this may cause drowsiness. Prescriptions: Ibuprofen [Motrin] 600 mg PO Q8H PRN #20 tablet PRN Reason: Pain Acetaminophen/Codeine [Tylenol /Codeine # 3 tab] 1 tab PO Q6H PRN #12 tab PRN Reason: Pain , Severe (7-10) Referrals: [facility] [Other] - 3-5 Days PRIMARY CARE, [Referring] - 3-5 Days LAMAR AVERY MD [Staff Physician] - 3-5 Days [facility] [Outside] - 3-5 Days Forms: Work/School Release Form(ED)
--- NOTE | 2019-03-02 14:01 | XRay Report ---
PROCEDURE: XR FOOT 3+V LT TECHNIQUE: Left foot, 3 views HISTORY: pain COMPARISONS: None available FINDINGS: No fracture or dislocation. No focal osseous lesions. No radiopaque foreign body. IMPRESSION: No fracture or dislocation. This document is electronically signed by Blanche Juan MD., March 02 2019 02:00:08 PM ET
[2019-03-02 14:26] VITALS: BP 172/109
== END 2019-03-02 14:25 | disposition home or self-care (01) ==
LOC: ED 10:05
DX: S96.912A Strain of unspecified muscle and tendon at ankle and foot level, left foot, initial encounter (principal); I10 Essential (primary) hypertension; K21.9 Gastro-esophageal reflux disease without esophagitis; G43.909 Migraine, unspecified, not intractable, without status migrainosus; Z98.51 Tubal ligation status; Z90.49 Acquired absence of other specified parts of digestive tract; Z90.710 Acquired absence of both cervix and uterus; X58.XXXA Exposure to other specified factors, initial encounter; Y93.89 Activity, other specified; Y92.89 Other specified places as the place of occurrence of the external cause; Y99.8 Other external cause status

== ENCOUNTER 2019-03-08 10:18 | Inpatient (IN) | payer OTHER, MEDICARE ==
[2019-03-08] MEDS ORDERED: ASPIRIN PO ONE (10:35)
--- NOTE | 2019-03-08 10:52 | Emergency Department Report ---
ED Chest Pain HPI - General Chief Complaint: Chest Pain Stated Complaint: CHEST PAIN Time Seen by Provider: 03/08/19 10:51 Source: patient Mode of arrival: Ambulatory Limitations: No Limitations - History of Present Illness MD Complaint: chest pain -: Gradual, days(s) (3) Onset: during rest Pain Location: right chest Pain Radiation: LUE Severity: severe Severity scale (0 -10): 8 Quality: aching, dull Consistency: constant Improves With: nothing Worsens With: nothing re: dyspnea Treatments Prior to Arrival: none Aspirin use within the Past 7 Days: (0) No - Related Data On Oral Contraceptives: No Previous Rx's Medication Instructions Recorded Last Taken Type Lidocaine Viscous 2% 5 ml PO QID PRN #100 ml 02/24/18 Unknown Rx Omeprazole 20 mg PO DAILY #30 tablet.dr 02/24/18 Unknown Rx traMADol [Ultram 50 MG tab] 50 mg PO Q6HR PRN #30 tablet 02/24/18 Unknown Rx ALBUTEROL Inhaler (OR & NICU) 2 puff IH QID PRN #1 inhalation 07/08/18 Unknown Rx [ProAir HFA Inhaler] Benzonatate [Tessalon Perles] 100 mg PO Q8HR #10 capsule 07/08/18 Unknown Rx predniSONE [Deltasone] 20 mg PO QDAY #5 tab 07/08/18 Unknown Rx Acetaminophen/Codeine [Tylenol 1 tab PO Q6H PRN #12 tab 08/25/18 Unknown Rx /Codeine # 3 tab] Amoxicillin/K Clav Tab [Augmentin 1 tab PO Q12HR #20 tab 08/25/18 Unknown Rx 875 mg] Amlodipine Besylate [Norvasc] 5 mg PO QDAY #30 tablet 11/09/18 Unknown Rx Dicyclomine [Bentyl] 10 mg PO QID PRN #20 capsule 11/09/18 Unknown Rx Famotidine [Pepcid] 20 mg PO BID #30 tablet 11/09/18 Unknown Rx Ondansetron [Zofran Odt] 4 mg PO Q8HR PRN #20 tab.rapdis 11/09/18 Unknown Rx Promethazine [Phenergan SUPPOS] 50 mg [place] Q6H PRN #15 supp.rect 11/09/18 Unknown Rx Butalb/Acetamin/Caff 50-325-40 1 tab PO Q8HR PRN #10 tablet 01/31/19 Unknown Rx [Fioricet] Ondansetron [Zofran Odt] 4 mg PO Q8HR #10 tab.rapdis 01/31/19 Unknown Rx Cyclobenzaprine [Flexeril] 10 mg PO TID #20 tablet 02/17/19 Unknown Rx Ibuprofen [Ibu] 600 mg PO Q6HR PRN #20 tablet 02/17/19 Unknown Rx Acetaminophen/Codeine [Tylenol 1 tab PO Q6H PRN #12 tab 03/02/19 Unknown Rx /Codeine # 3 tab] Ibuprofen [Motrin] 600 mg PO Q8H PRN #20 tablet 03/02/19 Unknown Rx Allergies Allergy/AdvReac Type Severity Reaction Status Date / Time No Known Allergies Allergy Verified 01/31/19 09:40 Heart Score - HEART Score History: Slightly suspicious EKG: Non-specific Age: < 45 Risk factors: 1-2 risk factors Troponin: < normal limit HEART Score: 2 - Critical Actions Critical Actions: 0-3 pts:0.9-1.7%risk of adverse cardiac event.Candidate for discharge ED Review of Systems ROS: Stated complaint: CHEST PAIN Other details as noted in HPI Comment: All other systems reviewed and negative Constitutional: denies: chills, fever Eyes: denies: eye pain, eye discharge, vision change ENT: denies: ear pain, throat pain Respiratory: shortness of breath. denies: cough, wheezing Cardiovascular: chest pain. denies: palpitations Endocrine: no symptoms reported Gastrointestinal: denies: abdominal pain, nausea, diarrhea Genitourinary: denies: urgency, dysuria, discharge Musculoskeletal: denies: back pain, joint swelling, arthralgia Skin: denies: rash, lesions Neurological: denies: headache, weakness, paresthesias Psychiatric: denies: anxiety, depression Hematological/Lymphatic: denies: easy bleeding, easy bruising ED Past Medical Hx - Past Medical History Previous Medical History?: Yes Hx Hypertension: Yes Hx GERD: Yes Hx Headaches / Migraines: Yes Additional medical history: Gastric Ulcers - Surgical History Hx Cholecystectomy: Yes Additional Surgical History: C section X4. Hysterectomy. Tubal ligation. - Social History Smoking Status: Never Smoker Substance Use Type: None - Medications Home Medications: Home Medications Medication Instructions Recorded Confirmed Last Taken Type Lidocaine Viscous 2% 5 ml PO QID PRN #100 ml 02/24/18 11/09/18 Unknown Rx Omeprazole 20 mg PO DAILY #30 tablet. 02/24/18 11/09/18 Unknown Rx traMADol [Ultram 50 MG tab] 50 mg PO Q6HR PRN #30 tablet 02/24/18 11/09/18 Unknown Rx ALBUTEROL Inhaler (OR & NICU) 2 puff IH QID PRN #1 inhalation 07/08/18 11/09/18 Unknown Rx [ProAir HFA Inhaler] Benzonatate [Tessalon Perles] 100 mg PO Q8HR #10 capsule 07/08/18 11/09/18 Unknown Rx predniSONE [Deltasone] 20 mg PO QDAY #5 tab 07/08/18 11/09/18 Unknown Rx Acetaminophen/Codeine [Tylenol 1 tab PO Q6H PRN #12 tab 08/25/18 11/09/18 Unknown Rx /Codeine # 3 tab] Amoxicillin/K Clav Tab [Augmentin 1 tab PO Q12HR #20 tab 08/25/18 11/09/18 Unknown Rx 875 mg] Amlodipine Besylate [Norvasc] 5 mg PO QDAY #30 tablet 11/09/18 Unknown Rx Dicyclomine [Bentyl] 10 mg PO QID PRN #20 capsule 11/09/18 Unknown Rx Famotidine [Pepcid] 20 mg PO BID #30 tablet 11/09/18 Unknown Rx Ondansetron [Zofran Odt] 4 mg PO Q8HR PRN #20 tab.rapdis 11/09/18 Unknown Rx Promethazine [Phenergan SUPPOS] 50 mg [place] Q6H PRN #15 supp.rect 11/09/18 Unknown Rx Butalb/Acetamin/Caff 50-325-40 1 tab PO Q8HR PRN #10 tablet 01/31/19 Unknown Rx [Fioricet] Ondansetron [Zofran Odt] 4 mg PO Q8HR #10 tab.rapdis 01/31/19 Unknown Rx Cyclobenzaprine [Flexeril] 10 mg PO TID #20 tablet 02/17/19 Unknown Rx Ibuprofen [Ibu] 600 mg PO Q6HR PRN #20 tablet 02/17/19 Unknown Rx Acetaminophen/Codeine [Tylenol 1 tab PO Q6H PRN #12 tab 03/02/19 Unknown Rx /Codeine # 3 tab] Ibuprofen [Motrin] 600 mg PO Q8H PRN #20 tablet 03/02/19 Unknown Rx ED Physical Exam - General Limitations: No Limitations General appearance: alert, in no apparent distress - Head Head exam: Present: atraumatic, normocephalic - Eye Eye exam: Present: normal appearance, PERRL, EOMI - ENT ENT exam: Present: normal exam, mucous membranes moist - Neck Neck exam: Present: normal inspection - Respiratory Respiratory exam: Present: normal lung sounds bilaterally. Absent: respiratory distress - Cardiovascular Cardiovascular Exam: Present: regular rate, normal rhythm. Absent: systolic murmur, diastolic murmur, rubs, gallop - GI/Abdominal GI/Abdominal exam: Present: soft, normal bowel sounds - Extremities Exam Extremities exam: Present: normal inspection, normal capillary refill. Absent: pedal edema - Back Exam Back exam: Present: normal inspection, full ROM - Neurological Exam Neurological exam: Present: alert, oriented X3 - Psychiatric Psychiatric exam: Present: normal affect, normal mood - Skin Skin exam: Present: warm, dry, intact, normal color. Absent: rash ED Course Vital Signs 03/08/19 03/08/19 03/08/19 10:33 10:42 10:45 Temperature 98.1 F Pulse Rate 60 63 Respiratory 16 12 Rate Blood Pressure 170/95 Blood Pressure 150/94 [Left] O2 Sat by Pulse 99 99 98 Oximetry 03/08/19 03/08/19 03/08/19 10:50 11:00 11:15 Temperature Pulse Rate 62 58 L Respiratory 18 10 L 22 Rate Blood Pressure 159/100 163/105 Blood Pressure [Left] O2 Sat by Pulse 97 98 Oximetry 03/08/19 03/08/19 03/08/19 11:19 11:31 11:45 Temperature Pulse Rate 65 59 L 57 L Respiratory 12 14 Rate Blood Pressure 163/105 144/94 159/100 Blood Pressure [Left] O2 Sat by Pulse 99 99 Oximetry 03/08/19 03/08/19 03/08/19 12:01 12:43 12:45 Temperature Pulse Rate 61 55 L 57 L Respiratory 24 18 19 Rate Blood Pressure 145/93 188/105 175/112 Blood Pressure [Left] O2 Sat by Pulse 100 100 99 Oximetry 03/08/19 03/08/19 03/08/19 13:03 13:15 13:30 Temperature Pulse Rate 59 L 60 61 Respiratory 16 22 22 Rate Blood Pressure 175/112 155/100 145/94 Blood Pressure [Left] O2 Sat by Pulse 99 97 97 Oximetry - Consultations Consultation #1: 03/08/19 13:51 Dr Bean will admit for further evaluation and management. CAROLEE score - Carolee Score Age > 65: (0) No Aspirin use within the Past 7 Days: (0) No 3 or more CAD Risk Factors: (0) No 2 or more Angina events in past 24 hrs: (1) Yes Known CAD with more than 50% Stenosis: (0) No Elevated Cardiac Markers: (0) No ST Deviation Greater than 0.5mm: (0) No CAROLEE Score: 1 ED Medical Decision Making - Lab Data Result diagrams: 03/08/19 10:48 03/08/19 10:48 Lab Results 03/08/19 03/08/19 03/08/19 Range/Units 10:48 10:48 10:48 WBC 5.5 (4.5-11.0) K/mm3 RBC 4.03 (3.65-5.03) M/mm3 Hgb 13.3 (10.1-14.3) gm/dl Hct 38.6 (30.3-42.9) % MCV 96 (79-97) fl MCH 33 H (28-32) pg MCHC 35 H (30-34) % RDW 13.5 (13.2-15.2) % Plt Count 256 (140-440) K/mm3 Lymph % (Auto) 18.9 (13.4-35.0) % [place] % (Auto) 7.3 (0.0-7.3) % Eos % (Auto) 1.7 (0.0-4.3) % Baso % (Auto) 2.3 H (0.0-1.8) % Lymph # 1.0 L (1.2-5.4) K/mm3 [place] # 0.4 (0.0-0.8) K/mm3 Eos # 0.1 (0.0-0.4) K/mm3 Baso # 0.1 (0.0-0.1) K/mm3 Seg Neutrophils % 69.8 (40.0-70.0) % Seg Neutrophils # 3.8 (1.8-7.7) K/mm3 PT (12.2-14.9) Sec. INR (0.87-1.13) APTT (24.2-36.6) Sec. D-Dimer (0-234) ng/mlDDU Sodium 140 (137-145) mmol/L Potassium 3.4 L (3.6-5.0) mmol/L Chloride 104.4 (98-107) mmol/L Carbon Dioxide 24 (22-30) mmol/L Anion Gap 15 mmol/L BUN 13 (7-17) mg/dL Creatinine 0.8 (0.7-1.2) mg/dL Estimated GFR > 60 ml/min BUN/Creatinine Ratio 16 % Glucose 127 H (65-100) mg/dL Calcium 8.3 L (8.4-10.2) mg/dL Total Bilirubin 0.50 (0.1-1.2) mg/dL Direct Bilirubin < 0.2 (0-0.2) mg/dL AST 25 (5-40) units/L ALT 30 (7-56) units/L Alkaline Phosphatase 56 (35-129) units/L Troponin T < 0.010 (0.00-0.029) ng/mL NT-Pro-B Natriuret Pep 56.72 (0-450) pg/mL Total Protein 6.4 (6.3-8.2) g/dL Albumin 3.9 (3.9-5) g/dL Albumin/Globulin Ratio 1.6 % Urine Color (Yellow) Urine Turbidity (Clear) Urine pH (5.0-7.0) Ur Specific Dex[place] (1.003-1.030) Urine Protein (Negative) mg/dL Urine Glucose (UA) (Negative) mg/dL Urine Ketones (Negative) mg/dL Urine Blood (Negative) Urine Nitrite (Negative) Urine Bilirubin (Negative) Urine Urobilinogen (<2.0) mg/dL Ur Leukocyte Esterase (Negative) Urine WBC (Auto) (0.0-6.0) /HPF Urine RBC (Auto) (0.0-6.0) /HPF U Epithel Cells (Auto) (0-13.0) /HPF Urine Bacteria (Auto) (Negative) /HPF Urine Mucus /HPF Urine Opiates Screen Urine Methadone Screen Ur Barbiturates Screen Ur Phencyclidine Scrn Ur Amphetamines Screen U Benzodiazepines Scrn Urine Cocaine Screen U Marijuana (THC) Screen Drugs of Abuse Note 03/08/19 03/08/19 03/08/19 Range/Units 11:11 Unknown Unknown WBC (4.5-11.0) K/mm3 RBC (3.65-5.03) M/mm3 Hgb (10.1-14.3) gm/dl Hct (30.3-42.9) % MCV (79-97) fl MCH (28-32) pg MCHC (30-34) % RDW (13.2-15.2) % Plt Count (140-440) K/mm3 Lymph % (Auto) (13.4-35.0) % [place] % (Auto) (0.0-7.3) % Eos % (Auto) (0.0-4.3) % Baso % (Auto) (0.0-1.8) % Lymph # (1.2-5.4) K/mm3 [place] # (0.0-0.8) K/mm3 Eos # (0.0-0.4) K/mm3 Baso # (0.0-0.1) K/mm3 Seg Neutrophils % (40.0-70.0) % Seg Neutrophils # (1.8-7.7) K/mm3 PT 14.0 (12.2-14.9) Sec. INR 1.02 (0.87-1.13) APTT 38.0 H (24.2-36.6) Sec. D-Dimer 280.94 H (0-234) ng/mlDDU Sodium (137-145) mmol/L Potassium (3.6-5.0) mmol/L Chloride (98-107) mmol/L Carbon Dioxide (22-30) mmol/L Anion Gap mmol/L BUN (7-17) mg/dL Creatinine (0.7-1.2) mg/dL Estimated GFR ml/min BUN/Creatinine Ratio % Glucose (65-100) mg/dL Calcium (8.4-10.2) mg/dL Total Bilirubin (0.1-1.2) mg/dL Direct Bilirubin (0-0.2) mg/dL AST (5-40) units/L ALT (7-56) units/L Alkaline Phosphatase (35-129) units/L Troponin T (0.00-0.029) ng/mL NT-Pro-B Natriuret Pep (0-450) pg/mL Total Protein (6.3-8.2) g/dL Albumin (3.9-5) g/dL Albumin/Globulin Ratio % Urine Color Yellow (Yellow) Urine Turbidity Slightly-cloudy (Clear) Urine pH 6.0 (5.0-7.0) Ur Specific Dexter 1.019 (1.003-1.030) Urine Protein <15 mg/dl (Negative) mg/dL Urine Glucose (UA) Neg (Negative) mg/dL Urine Ketones Neg (Negative) mg/dL Urine Blood Neg (Negative) Urine Nitrite Neg (Negative) Urine Bilirubin Neg (Negative) Urine Urobilinogen 2.0 (<2.0) mg/dL Ur Leukocyte Esterase Neg (Negative) Urine WBC (Auto) 1.0 (0.0-6.0) /HPF Urine RBC (Auto) 2.0 (0.0-6.0) /HPF U Epithel Cells (Auto) 4.0 (0-13.0) /HPF Urine Bacteria (Auto) 1+ (Negative) /HPF Urine Mucus Few /HPF Urine Opiates Screen Presumptive positive Urine Methadone Screen Presumptive negative Ur Barbiturates Screen Presumptive positive Ur Phencyclidine Scrn Presumptive negative Ur Amphetamines Screen Presumptive negative U Benzodiazepines Scrn Presumptive negative Urine Cocaine Screen Presumptive negative U Marijuana (THC) Screen Presumptive negative Drugs of Abuse Note Disclamer - EKG Data -: EKG Interpreted by Ny EKG shows normal: sinus rhythm Rate: bradycardia (59) - EKG Data When compared to previous EKG there are: previous EKG unavailable Interpretation: nonspecific ST-T wave barrera 03/08/19 11:01 No STEMI. - Radiology Data Radiology results: report reviewed CXR and CT angio Chest were negative. - Medical Decision Making ACS r/o M.I. patient to be admitted for further evaluation. Critical care attestation.: If time is entered above; I have spent that time in minutes in the direct care of this critically ill patient, excluding procedure time. ED Disposition Clinical Impression: ACS (acute coronary syndrome) Chest pain Qualifiers: Chest pain type: unspecified Qualified Code(s): R07.9 - Chest pain, unspecified Hypertension Qualifiers: Hypertension type: essential hypertension Qualified Code(s): I10 - Essential (primary) hypertension Disposition: 09 OP ADMIT IP TO THIS HOSP Is pt being admited?: Yes Does the pt Need Aspirin: Yes Condition: Stable Instructions: Chest Pain (ED), Hypertension (ED) Time of Disposition: 13:53
[2019-03-08] MEDS ORDERED: NITROSTAT SL ONE (10:59)
[2019-03-08 11:02] LABS: Basophils # (Auto) 0.1 K/mm3 (0.0-0.1); Basophils % (Auto) 2.3 % (0.0-1.8); Eosinophils # (Auto) 0.1 K/mm3 (0.0-0.4); Eosinophils % (Auto) 1.7 % (0.0-4.3); Hematocrit 38.6 % (30.3-42.9); Hemoglobin 13.3 gm/dl (10.1-14.3); Lymphocytes % (Auto) 18.9 % (13.4-35.0); Mean Corpuscular HGB Conc 35 % (30-34); Mean Corpuscular Volume 96 fl (79-97); Monocytes # (Auto) 0.4 K/mm3 (0.0-0.8); Monocytes % (Auto) 7.3 % (0.0-7.3); Platelet Count 256 K/mm3 (140-440); Red Blood Count 4.03 M/mm3 (3.65-5.03); Red Cell Distribution Width 13.5 % (13.2-15.2)
--- NOTE | 2019-03-08 11:11 | XRay Report ---
PROCEDURE: XR CHEST 1V AP TECHNIQUE: Frontal chest radiograph. HISTORY: Chest Pain COMPARISONS: None FINDINGS: The cardiomediastinal silhouette is normal. No consolidation. No pleural effusion. No pneumothorax. No acute osseous abnormality. IMPRESSION: No acute process in the chest. This document is electronically signed by Francie Ruffin., Mar 08 2019 11:09:05 AM ET
[2019-03-08 11:17] LABS: BUN/Creatinine Ratio 16; Blood Urea Nitrogen 13 mg/dL (7-17); Calcium 8.3 mg/dL (8.4-10.2); Hemolysis Index 7
[2019-03-08 11:32] LABS: Bacteria,Urine 1+ /HPF (Negative); Bilirubin,Urine NEG (Negative); Blood,Urine NEG (Negative); Color,Urine Yellow (Yellow); Mucus,Urine FEW /HPF; Protein,Urine <15 mg/dL mg/dL (Negative)
[2019-03-08 11:37] LABS: INR 1.02 (0.87-1.13)
[2019-03-08 11:38] LABS: Amphetamine Screen,Urine PRESUMPTIVE NEGATIVE; Benzodiazepines Screen,Urine PRESUMPTIVE NEGATIVE; Cannabinoid Screen,Urine PRESUMPTIVE NEGATIVE; Cocaine Screen,Urine PRESUMPTIVE NEGATIVE; Methadone Screen,Urine PRESUMPTIVE NEGATIVE
[2019-03-08 11:41] LABS: Alanine Aminotransferase 30 units/L (7-56); Albumin 3.9 g/dL (3.9-5)
[2019-03-08 11:46] LABS: Bilirubin,Direct < 0.2 mg/dL (0-0.2)
[2019-03-08 11:58] LABS: Opiate Screen,Urine PRESUMPTIVE POSITIVE
[2019-03-08] MEDS ORDERED: NITRO-BID 2% TP ONE (12:34)
--- NOTE | 2019-03-08 13:26 | Cat Scan Report ---
EXAM: CT ANGIO CHEST HISTORY: Chest Pain, Elevated D-dimer TECHNIQUE: Spiral axial CT images with sagittal and coronal reformatted images are obtained through the chest with the administration of intravenous contrast. DOSIMETRY: Total DLP: 604.29 mGycm COMPARISON: None available. FINDINGS: CARDIOVASCULAR: There is no evidence for pulmonary embolic disease. The heart size and mediastinal va scular structures are within normal limits. There is no significant aortic or coronary atheroscleros is seen. No thoracic aortic aneurysm or dissection is noted. MEDIASTINUM AND LANA: No mass lesion, lymphadenopathy, emphysema, or abnormal fluid collection is see n. LUNGS: There is no acute parenchymal infiltrate, lung nodule, or endobronchial obstructing lesion see n. No pleural effusion or pneumothorax is evident. CHEST WALL: There are no chest wall lesions seen. The visualized bony structures are within normal l imits. No axillary lymphadenopathy is noted. UPPER ABDOMEN: Limited views through the upper abdomen demonstrate no gross acute abnormality. IMPRESSION: 1. No evidence for pulmonary embolic disease. 2. No evidence for aortic aneurysm or aortic dissection. 3. No acute parenchymal infiltrate, pleural effusion, or pneumothorax seen. 4. No gross endobronchial obstructing lesion is seen. This document is electronically signed by Carol Ann Siddiqui MD., Mar 08 2019 01:24:04 PM ET
[2019-03-08] MEDS ORDERED: LIDOCAINE VISCOUS 2% PO PRN (13:49)
[2019-03-08] MEDS ORDERED: ULTRAM PO PRN (13:49)
[2019-03-08] MEDS ORDERED: TYLENOL #3 PO PRN (13:49)
[2019-03-08] MEDS ORDERED: ZOFRAN ODT PO PRN (13:49)
[2019-03-08] MEDS ORDERED: FIORICET PO PRN (13:49)
[2019-03-08] MEDS ORDERED: IBUPROFEN PO PRN (13:49)
[2019-03-08] MEDS ORDERED: PHENERGAN PR PRN (13:49)
--- NOTE | 2019-03-08 13:49 | History and Physical Report ---
History of Present Illness Chief complaint: My chest hurts History of present illness: 43 YO Female with Obesity, HTN, GERD, Migraine Headache, PUD presents to ED for evaluation. Pt states that she has experienced pain in her chest over the past 3 days with progressively worsening symptoms over the same time and the pain was initially intermittent as lasted a few minutes but is now constant. Pt states that pain is now 8/10, substernal, radiates to the left arm, not worsened with exertion, not relieved with rest, crushing in nature, associated with shortness of breath. Pt acknowledges Orthopnea/PND, Decreased exercise tolerance, Dypsnea at rest and with exertion, and leg edema. Pt transported to [facility] via private vehicle. Pt seen and evaluated in ED and found to have Angina as well as symptoms consistent with Diastolic CHF. Cardiology team consulted in ED. Past History Past Medical History: GERD, hypertension, other (PUD) Past Surgical History: cholecystectomy, , hysterectomy, Other (tubal ligation) Social history: . denies: smoking, alcohol abuse, prescription drug abuse Family history: diabetes, hypertension Medications and Allergies Allergies Allergy/AdvReac Type Severity Reaction Status Date / Time No Known Allergies Allergy Verified 01/31/19 09:40 Home Medications Medication Instructions Recorded Confirmed Last Taken Type Lidocaine Viscous 2% 5 ml PO QID PRN #100 ml 02/24/18 03/08/19 1 Month Ago Rx ~02/06/19 Omeprazole 20 mg PO DAILY #30 tablet. 02/24/18 03/08/19 1 Year Ago Rx ~03/08/18 traMADol [Ultram 50 MG tab] 50 mg PO Q6HR PRN #30 tablet 02/24/18 03/08/19 03/07/19 Rx ALBUTEROL Inhaler (OR & NICU) 2 puff IH QID PRN #1 inhalation 07/08/18 03/08/19 10/05/18 Rx [ProAir HFA Inhaler] Benzonatate [Tessalon Perles] 100 mg PO Q8HR #10 capsule 07/08/18 03/08/19 03/08/19 Rx predniSONE [Deltasone] 20 mg PO QDAY #5 tab 07/08/18 03/08/19 2 Months Ago Rx ~01/06/19 Acetaminophen/Codeine [Tylenol 1 tab PO Q6H PRN #12 tab 08/25/18 03/08/19 1 Day Ago Rx /Codeine # 3 tab] ~03/07/19 Amoxicillin/K Clav Tab [Augmentin 1 tab PO Q12HR #20 tab 08/25/18 03/08/19 1 Year Ago Rx 875 mg] ~03/08/18 Amlodipine Besylate [Norvasc] 5 mg PO QDAY #30 tablet 11/09/18 03/08/19 2 Days Ago Rx ~03/06/19 Dicyclomine [Bentyl] 10 mg PO QID PRN #20 capsule 11/09/18 03/08/19 1 Month Ago Rx ~02/06/19 Famotidine [Pepcid] 20 mg PO BID #30 tablet 11/09/18 03/08/19 1 Month Ago Rx ~02/06/19 Ondansetron [Zofran Odt] 4 mg PO Q8HR PRN #20 tab.rapdis 11/09/18 03/08/19 1 Month Ago Rx ~02/06/19 Promethazine [Phenergan SUPPOS] 50 mg [place] Q6H PRN #15 supp.rect 11/09/18 03/08/19 1 Year Ago Rx ~03/08/18 Butalb/Acetamin/Caff 50-325-40 1 tab PO Q8HR PRN #10 tablet 01/31/19 03/08/19 1 Day Ago Rx [Fioricet] ~03/07/19 Ondansetron [Zofran Odt] 4 mg PO Q8HR #10 tab.rapdis 01/31/19 03/08/19 1 Month Ago Rx ~02/06/19 Cyclobenzaprine [Flexeril] 10 mg PO TID #20 tablet 02/17/19 03/08/19 03/08/19 Rx Ibuprofen [Ibu] 600 mg PO Q6HR PRN #20 tablet 02/17/19 03/08/19 1 Day Ago Rx ~03/07/19 Acetaminophen/Codeine [Tylenol 1 tab PO Q6H PRN #12 tab 03/02/19 03/08/19 1 Day Ago Rx /Codeine # 3 tab] ~03/07/19 Ibuprofen [Motrin] 600 mg PO Q8H PRN #20 tablet 03/02/19 03/08/19 1 Day Ago Rx ~03/07/19 Review of Systems Constitutional: no weight loss, no weight gain, no fever, no chills Ears, nose, mouth and throat: no ear pain, no ear discharge, no tinnitis, no decreased hearing, no nose pain, no nasal congestion Breasts: no change in shape, no swelling, no mass Cardiovascular: chest pain, orthopnea, shortness of breath, dyspnea on exertion, paroxysmal nocturnal dyspnea, high blood pressure, decreased exercise tolerance Respiratory: no cough, no cough with sputum, no excessive sputum, no hemoptysis Gastrointestinal: no nausea, no vomiting, no diarrhea, no constipation Genitourinary Female: no pelvic pain, no flank pain, no menorrhagia, no dysuria, no urinary frequency, no urgency Rectal: no pain, no incontinence, no bleeding Musculoskeletal: no neck stiffness, no neck pain, no shooting arm pain, no arm numbness/tingling Integumentary: no rash, no pruritis, no redness, no sores, no wounds Neurological: no transient paralysis, no paralysis, no weakness, no parathesias Psychiatric: no anxiety, no memory loss, no change in sleep habits, no sleep disturbances, no insomnia, no hypersomnia, no change in appetite Endocrine: no cold intolerance, no heat intolerance, no polyphagia, no excessive thirst, no polydipsia, no polyuria Hematologic/Lymphatic: no easy bruising, no easy bleeding, no lymphadenopathy Allergic/Immunologic: no urticaria, no allergic rhinitis, no wheezing, no persi stent infections Exam - Constitutional Vitals: Temp Pulse Resp BP Pulse Ox 98.1 F 61 22 145/94 97 03/08/19 10:33 03/08/19 13:30 03/08/19 13:30 03/08/19 13:30 03/08/19 13:30 General appearance: Present: mild distress, obese - EENT Eyes: Present: PERRL ENT: hearing intact, clear oral mucosa - Neck Neck: Present: supple, normal ROM - Respiratory Respiratory effort: normal Respiratory: bilateral: CTA - Cardiovascular Heart Sounds: Present: S1 & S2. Absent: rub, click - Extremities Extremities: pulses symmetrical Extremity abnormal: edema Peripheral Pulses: within normal limits - Abdominal General gastrointestinal: Present: soft, non-tender, non-distended, normal bowel sounds Female genitourinary: Present: normal - Integumentary Integumentary: Present: clear, warm, dry - Musculoskeletal Musculoskeletal: gait normal, strength equal bilaterally - Psychiatric Psychiatric: appropriate mood/affect, intact judgment & insight - Neurologic Neurologic: CNII-XII intact, moves all extremities Results - Labs CBC & Chem 7: 03/08/19 10:48 03/08/19 10:48 Labs: Abnormal lab results 03/08/19 03/08/19 03/08/19 Range/Units 10:48 10:48 11:11 MCH 33 H (28-32) pg MCHC 35 H (30-34) % Baso % (Auto) 2.3 H (0.0-1.8) % Lymph # 1.0 L (1.2-5.4) K/mm3 APTT 38.0 H (24.2-36.6) Sec. D-Dimer 280.94 H (0-234) ng/mlDDU Potassium 3.4 L (3.6-5.0) mmol/L Glucose 127 H (65-100) mg/dL Calcium 8.3 L (8.4-10.2) mg/dL Assessment and Plan - Patient Problems (1) Angina at rest Current Visit: Yes Status: Acute Plan to address problem: Admit to telemetry, Serial cardiac enzymes, Stress test, cardiology consulted in ED, morphine, supplemental oxygen, nitro, aspirin. (2) CHF (congestive heart failure) Current Visit: Yes Status: Acute Qualifiers: Heart failure type: systolic Heart failure chronicity: acute Qualified Code(s): I50.21 - Acute systolic (congestive) heart failure Plan to address problem: Admit to telemetry, Echo, Strict I/O, Daily weight, BNP, cardiology consulted in ED, afterload reduction, blood pressure control. (3) Hypokalemia Current Visit: Yes Status: Acute Plan to address problem: dietary repletion, repeat bmp in am. (4) Hypertensive urgency, malignant Current Visit: Yes Status: Acute Plan to address problem: monitor bp q shift, IV hydralazine prn for systolic above 155. Goal systolic between 115-140 (5) Migraine Current Visit: Yes Status: Acute Qualifiers: Migraine type: with aura Plan to address problem: Sumatriptan, supportive care (6) GERD (gastroesophageal reflux disease) Current Visit: Yes Status: Acute Qualifiers: Esophagitis presence: without esophagitis Qualified Code(s): K21.9 - Gastro-esophageal reflux disease without esophagitis Plan to address problem: PPI therapy, supportive care (7) DVT prophylaxis Current Visit: Yes Status: Acute Plan to address problem: SCD to BLE while in bed.
[2019-03-08] MEDS ORDERED: BABY ASPIRIN PO STA (13:54)
[2019-03-08] MEDS ORDERED: SODIUM CHLORIDE FLUSH SYRINGE 10 ML IV PRN ×2 (13:54)
[2019-03-08] MEDS ORDERED: PROVENTIL IH PRN (13:54)
[2019-03-08] MEDS ORDERED: ZOFRAN IV PRN (13:54)
[2019-03-08] MEDS ORDERED: TYLENOL PO PRN (13:54)
[2019-03-08] MEDS ORDERED: BENTYL PO PRN (14:00)
[2019-03-08] MEDS: FLEXERIL PO SCH ×2 (14:00→21:33)
[2019-03-08] MEDS: TESSALON PERLES PO SCH ×2 (14:00→21:33)
[2019-03-08] MEDS: MORPHINE IV PRN ×3 (14:24→23:28)
[2019-03-08] MEDS ORDERED: IMITREX PO ONE (15:00)
[2019-03-08] MEDS: APRESOLINE IV PRN ×2 (16:05→23:27)
[2019-03-08] MEDS: LOVENOX SUB-Q SCH (21:33)
[2019-03-08] MEDS: SODIUM CHLORIDE FLUSH SYRINGE 10 ML IV SCH (21:34)
[2019-03-08] MEDS ORDERED: PEPCID PO SCH (22:00)
[2019-03-09] MEDS: TESSALON PERLES PO SCH ×3 (05:13→21:41)
[2019-03-09 06:09] LABS: BUN/Creatinine Ratio 14; Blood Urea Nitrogen 11 mg/dL (7-17); Calcium 8.7 mg/dL (8.4-10.2); Hemolysis Index 8
--- NOTE | 2019-03-09 09:40 | Consultation ---
History of Present Illness Consult date: 03/09/19 Consult reason: chest pain History of present illness: 43 year old female presenting with acute onset dull, sharp chest pain while working at [employer]. Pain lasted hours and resolved in the ER after she was treated with medications. She has been experiencing worsening shortness of breath with exertion x 1 month. She denies previous cardiac disease except for systemic hypertension. She is not compliant with BP meds. ECG showing non-speci fic T wave inversions in III and aVF. Troponin negative. No events on tele. Past History Past Medical History: GERD, hypertension, other (PUD) Past Surgical History: cholecystectomy, , hysterectomy, Other (tubal ligation) Social history: . denies: smoking, alcohol abuse, prescription drug ab use Family history: diabetes, hypertension Medications and Allergies Allergies Allergy/AdvReac Type Severity Reaction Status Date / Time No Known Allergies Allergy Verified 01/31/19 09:40 Home Medications Medication Instructions Recorded Confirmed Last Taken Type Lidocaine Viscous 2% 5 ml PO QID PRN #100 ml 02/24/18 03/08/19 1 Month Ago Rx ~02/06/19 Omeprazole 20 mg PO DAILY #30 tablet. 02/24/18 03/08/19 1 Year Ago Rx ~03/08/18 traMADol [Ultram 50 MG tab] 50 mg PO Q6HR PRN #30 tablet 02/24/18 03/08/19 03/07/19 Rx ALBUTEROL Inhaler (OR & NICU) 2 puff IH QID PRN #1 inhalation 07/08/18 03/08/19 10/05/18 Rx [ProAir HFA Inhaler] Benzonatate [Tessalon Perles] 100 mg PO Q8HR #10 capsule 07/08/18 03/08/19 03/08/19 Rx predniSONE [Deltasone] 20 mg PO QDAY #5 tab 07/08/18 03/08/19 2 Months Ago Rx ~01/06/19 Acetaminophen/Codeine [Tylenol 1 tab PO Q6H PRN #12 tab 08/25/18 03/08/19 1 Day Ago Rx /Codeine # 3 tab] ~03/07/19 Amoxicillin/K Clav Tab [Augmentin 1 tab PO Q12HR #20 tab 08/25/18 03/08/19 1 Year Ago Rx 875 mg] ~03/08/18 Amlodipine Besylate [Norvasc] 5 mg PO QDAY #30 tablet 11/09/18 03/08/19 2 Days Ago Rx ~03/06/19 Dicyclomine [Bentyl] 10 mg PO QID PRN #20 capsule 11/09/18 03/08/19 1 Month Ago Rx ~02/06/19 Famotidine [Pepcid] 20 mg PO BID #30 tablet 11/09/18 03/08/19 1 Month Ago Rx ~02/06/19 Ondansetron [Zofran Odt] 4 mg PO Q8HR PRN #20 tab.rapdis 11/09/18 03/08/19 1 Month Ago Rx ~02/06/19 Promethazine [Phenergan SUPPOS] 50 mg IA Q6H PRN #15 supp.rect 11/09/18 03/08/19 1 Year Ago Rx ~03/08/18 Butalb/Acetamin/Caff 50-325-40 1 tab PO Q8HR PRN #10 tablet 01/31/19 03/08/19 1 Day Ago Rx [Fioricet] ~03/07/19 Ondansetron [Zofran Odt] 4 mg PO Q8HR #10 tab.rapdis 01/31/19 03/08/19 1 Month Ago Rx ~02/06/19 Cyclobenzaprine [Flexeril] 10 mg PO TID #20 tablet 02/17/19 03/08/19 03/08/19 Rx Ibuprofen [Ibu] 600 mg PO Q6HR PRN #20 tablet 02/17/19 03/08/19 1 Day Ago Rx ~03/07/19 Acetaminophen/Codeine [Tylenol 1 tab PO Q6H PRN #12 tab 03/02/19 03/08/19 1 Day Ago Rx /Codeine # 3 tab] ~03/07/19 Ibuprofen [Motrin] 600 mg PO Q8H PRN #20 tablet 03/02/19 03/08/19 1 Day Ago Rx ~03/07/19 Active Meds: Active Medications Acetaminophen (Tylenol) 650 mg PO Q4H PRN PRN Reason: Pain MILD(1-3)/Fever >100.5/ROSADO Acetaminophen/Butalbital/Caffeine (Fioricet) 1 tab PO Q8HR PRN PRN Reason: Headache Last Admin: 03/08/19 22:49 Dose: 1 tab Documented by: Acetaminophen/Codeine Phosphate (Tylenol #3) 1 tab PO Q6H PRN PRN Reason: Pain , Severe (7-10) Albuterol (Proventil) 2.5 mg IH Q4H PRN PRN Reason: Shortness Of Breath Amlodipine Besylate (Norvasc) 5 mg PO QDAY [facility] Atorvastatin Calcium (Lipitor) 40 mg PO QHS [facility] Last Admin: 03/08/19 21:33 Dose: 40 mg Documented by: Benzonatate (Tessalon Perles) 100 mg PO Q8HR [facility] Last Admin: 03/09/19 05:13 Dose: 100 mg Documented by: Cyclobenzaprine HCl (Flexeril) 10 mg PO TID [facility] Last Admin: 03/08/19 21:33 Dose: 10 mg Documented by: Dicyclomine HCl (Bentyl) 10 mg PO QID PRN PRN Reason: Pain Enoxaparin Sodium (Lovenox) 40 mg SUB-Q QDAY@2200 [facility] Last Admin: 03/08/19 21:33 Dose: 40 mg Documented by: Hydralazine HCl (Apresoline) 10 mg IV Q4H PRN PRN Reason: Hypertension Last Admin: 03/08/19 23:27 Dose: 10 mg Documented by: Ibuprofen (Motrin) 600 mg PO Q6H PRN PRN Reason: Pain, Moderate (4-6) Last Admin: 03/08/19 17:12 Dose: 600 mg Documented by: Lidocaine HCl (Lidocaine Viscous 2%) 5 ml PO QID PRN PRN Reason: Pain Morphine Sulfate (Morphine) 2 mg IV Q4H PRN PRN Reason: Pain, Moderate (4-6) Last Admin: 03/08/19 23:28 Dose: 2 mg Documented by: Ondansetron HCl (Zofran Odt) 4 mg PO Q8HR PRN PRN Reason: Nausea Last Admin: 03/08/19 19:22 Dose: 4 mg Documented by: Pantoprazole Sodium (Protonix) 20 mg PO QDAY [facility] Prednisone (Deltasone) 20 mg PO QDAY [facility] Promethazine HCl (Phenergan) 50 mg IA Q6H PRN PRN Reason: Nausea Sodium Chloride (Sodium Chloride Flush Syringe 10 Ml) 10 ml IV BID GABO Last Admin: 03/08/19 21:34 Dose: 10 ml Documented by: Sodium Chloride (Sodium Chloride Flush Syringe 10 Ml) 10 ml IV PRN PRN PRN Reason: LINE FLUSH Tramadol HCl (Ultram) 50 mg PO Q6HR PRN PRN Reason: Pain Review of Systems All systems: negative Physical Examination Vital Signs Temp Pulse Resp BP Pulse Ox 98.1 F 60 16 150/94 99 03/08/19 10:33 03/08/19 10:33 03/08/19 10:33 03/08/19 10:33 03/08/19 10:33 General appearance: no acute distress HEENT: Positive: PERRL Neck: Positive: neck supple Cardiac: Positive: Reg Rate and Rhythm Lungs: Positive: Normal Exam Abdomen: Positive: Soft Extremities: Absent: edema Results 03/08/19 10:48 03/09/19 03:52 Cardiac Enzymes 03/08/19 Range/Units 10:48 AST 25 (5-40) units/L Coagulation 03/08/19 Range/Units 11:11 PT 14.0 (12.2-14.9) Sec. INR 1.02 (0.87-1.13) APTT 38.0 H (24.2-36.6) Sec. CBC 03/08/19 Range/Units 10:48 WBC 5.5 (4.5-11.0) K/mm3 RBC 4.03 (3.65-5.03) M/mm3 Hgb 13.3 (10.1-14.3) gm/dl Hct 38.6 (30.3-42.9) % Plt Count 256 (140-440) K/mm3 Lymph # 1.0 L (1.2-5.4) K/mm3 [place] # 0.4 (0.0-0.8) K/mm3 Eos # 0.1 (0.0-0.4) K/mm3 Baso # 0.1 (0.0-0.1) K/mm3 Comprehensive Metabolic Panel 03/08/19 03/08/19 03/09/19 Range/Units 10:48 10:48 03:52 Sodium 140 139 (137-145) mmol/L Potassium 3.4 L 3.2 L (3.6-5.0) mmol/L Chloride 104.4 98.6 (98-107) mmol/L Carbon Dioxide 24 26 (22-30) mmol/L BUN 13 11 (7-17) mg/dL Creatinine 0.8 0.8 (0.7-1.2) mg/dL Glucose 127 H 96 (65-100) mg/dL Calcium 8.3 L 8.7 (8.4-10.2) mg/dL Direct Bilirubin < 0.2 (0-0.2) mg/dL AST 25 (5-40) units/L ALT 30 (7-56) units/L Alkaline Phosphatase 56 (35-129) units/L Total Protein 6.4 (6.3-8.2) g/dL Albumin 3.9 (3.9-5) g/dL EKG interpretations - Telemetry EKG Rhythm: Sinus Rhythm Assessment and Plan Chest Pain Troponin negative Non-specific T wave inv in leads III and aVF Shortness of breath Systemic Hypertension Non-compliance Recommendations: Echo and stress test on sunday
[2019-03-09] MEDS ORDERED: NON-FORMULARY (Omeprazole [Omeprazole] 20 MG) PO SCH (10:00)
[2019-03-09] MEDS ORDERED: NORVASC PO SCH (10:00)
[2019-03-09] MEDS: PROTONIX PO SCH (10:37)
[2019-03-09] MEDS: FLEXERIL PO SCH ×3 (10:37→21:41)
[2019-03-09] MEDS: DELTASONE PO SCH (10:37)
--- NOTE | 2019-03-09 10:49 | Progress Note ---
Assessment and Plan Assessment and plan: Chest pain. Troponins have been negative. Nonspecific T-wave inversion in leads 3 and aVF. Echocardiogram and stress test in a.m. Hypertension. Resumed antihypertensive medications. Increase Norvasc 10 mg daily. If no significant improvement, we'll add additional agents. Medical noncompliance. Patient has been counseled on compliance with blood pressure medications. History Interval history: No new issues overnight. Patient still complains of chest pain. Hospitalist Physical - Constitutional Vitals: Temp Pulse Resp BP Pulse Ox 98.2 F 64 19 144/100 98 03/09/19 08:03 03/09/19 09:52 03/09/19 08:03 03/09/19 08:03 03/09/19 10:00 General appearance: Present: no acute distress - EENT Eyes: Present: PERRL, EOM intact ENT: hearing intact, clear oral mucosa, dentition normal - Neck Neck: Present: supple, normal ROM - Respiratory Respiratory effort: normal Respiratory: bilateral: CTA - Cardiovascular Rhythm: regular Heart Sounds: Present: S1 & S2. Absent: gallop, rub - Extremities Extremities: no ischemia, No edema, Full ROM - Abdominal General gastrointestinal: soft, non-tender, non-distended, normal bowel sounds - Integumentary Integumentary: Present: clear, warm, dry - Neurologic Neurologic: CNII-XII intact, moves all extremities Results - Labs CBC & Chem 7: 03/08/19 10:48 03/09/19 03:52 Labs: Laboratory Last Values WBC 5.5 K/mm3 (4.5-11.0) 03/08/19 10:48 RBC 4.03 M/mm3 (3.65-5.03) 03/08/19 10:48 Hgb 13.3 gm/dl (10.1-14.3) 03/08/19 10:48 Hct 38.6 % (30.3-42.9) 03/08/19 10:48 MCV 96 fl (79-97) 03/08/19 10:48 MCH 33 pg (28-32) H 03/08/19 10:48 MCHC 35 % (30-34) H 03/08/19 10:48 RDW 13.5 % (13.2-15.2) 03/08/19 10:48 Plt Count 256 K/mm3 (140-440) 03/08/19 10:48 Lymph % (Auto) 18.9 % (13.4-35.0) 03/08/19 10:48 [place] % (Auto) 7.3 % (0.0-7.3) 03/08/19 10:48 Eos % (Auto) 1.7 % (0.0-4.3) 03/08/19 10:48 Baso % (Auto) 2.3 % (0.0-1.8) H 03/08/19 10:48 Lymph # 1.0 K/mm3 (1.2-5.4) L 03/08/19 10:48 [place] # 0.4 K/mm3 (0.0-0.8) 03/08/19 10:48 Eos # 0.1 K/mm3 (0.0-0.4) 03/08/19 10:48 Baso # 0.1 K/mm3 (0.0-0.1) 03/08/19 10:48 Seg Neutrophils % 69.8 % (40.0-70.0) 03/08/19 10:48 Seg Neutrophils # 3.8 K/mm3 (1.8-7.7) 03/08/19 10:48 PT 14.0 Sec. (12.2-14.9) 03/08/19 11:11 INR 1.02 (0.87-1.13) 03/08/19 11:11 APTT 38.0 Sec. (24.2-36.6) H 03/08/19 11:11 D-Dimer 280.94 ng/mlDDU (0-234) H 03/08/19 11:11 Sodium 139 mmol/L (137-145) 03/09/19 03:52 Potassium 3.2 mmol/L (3.6-5.0) L 03/09/19 03:52 Chloride 98.6 mmol/L (98-107) 03/09/19 03:52 Carbon Dioxide 26 mmol/L (22-30) 03/09/19 03:52 Anion Gap 18 mmol/L 03/09/19 03:52 BUN 11 mg/dL (7-17) 03/09/19 03:52 Creatinine 0.8 mg/dL (0.7-1.2) 03/09/19 03:52 Estimated GFR > 60 ml/min 03/09/19 03:52 BUN/Creatinine Ratio 14 % 03/09/19 03:52 Glucose 96 mg/dL (65-100) 03/09/19 03:52 Calcium 8.7 mg/dL (8.4-10.2) 03/09/19 03:52 Total Bilirubin 0.50 mg/dL (0.1-1.2) 03/08/19 10:48 Direct Bilirubin < 0.2 mg/dL (0-0.2) 03/08/19 10:48 AST 25 units/L (5-40) 03/08/19 10:48 ALT 30 units/L (7-56) 03/08/19 10:48 Alkaline Phosphatase 56 units/L (35-129) 03/08/19 10:48 Troponin T < 0.010 ng/mL (0.00-0.029) 03/08/19 18:41 NT-Pro-B Natriuret Pep 56.72 pg/mL (0-450) 03/08/19 10:48 Total Protein 6.4 g/dL (6.3-8.2) 03/08/19 10:48 Albumin 3.9 g/dL (3.9-5) 03/08/19 10:48 Albumin/Globulin Ratio 1.6 % 03/08/19 10:48 Urine Color Yellow (Yellow) 03/08/19 Unknown Urine Turbidity Slightly-cloudy (Clear) 03/08/19 Unknown Urine pH 6.0 (5.0-7.0) 03/08/19 Unknown Ur Specific [place] 1.019 (1.003-1.030) 03/08/19 Unknown Urine Protein <15 mg/dl mg/dL (Negative) 03/08/19 Unknown Urine Glucose (UA) Neg mg/dL (Negative) 03/08/19 Unknown Urine Ketones Neg mg/dL (Negative) 03/08/19 Unknown Urine Blood Neg (Negative) 03/08/19 Unknown Urine Nitrite Neg (Negative) 03/08/19 Unknown Urine Bilirubin Neg (Negative) 03/08/19 Unknown Urine Urobilinogen 2.0 mg/dL (<2.0) 03/08/19 Unknown Ur Leukocyte Esterase Neg (Negative) 03/08/19 Unknown Urine WBC (Auto) 1.0 /HPF (0.0-6.0) 03/08/19 Unknown Urine RBC (Auto) 2.0 /HPF (0.0-6.0) 03/08/19 Unknown U Epithel Cells (Auto) 4.0 /HPF (0-13.0) 03/08/19 Unknown Urine Bacteria (Auto) 1+ /HPF (Negative) 03/08/19 Unknown Urine Mucus Few /HPF 03/08/19 Unknown Urine Opiates Screen Presumptive positive 03/08/19 Unknown Urine Methadone Screen Presumptive negative 03/08/19 Unknown Ur Barbiturates Screen Presumptive positive 03/08/19 Unknown Ur Phencyclidine Scrn Presumptive negative 03/08/19 Unknown Ur Amphetamines Screen Presumptive negative 03/08/19 Unknown U Benzodiazepines Scrn Presumptive negative 03/08/19 Unknown Urine Cocaine Screen Presumptive negative 03/08/19 Unknown U Marijuana (THC) Screen Presumptive negative 03/08/19 Unknown Drugs of Abuse Note Disclamer 03/08/19 Unknown Active Medications - Current Medications Current Medications: Generic Name Dose Route Start Last Admin Trade Name Freq PRN Reason Stop Dose Admin Acetaminophen 650 mg 03/08/19 13:54 Tylenol PO Q4H PRN Pain MILD(1-3)/Fever >100.5/ROSADO Acetaminophen/Butalbital/Caffeine 1 tab 03/08/19 13:49 03/08/19 22:49 Fioricet PO 1 tab Q8HR PRN Administration Headache Acetaminophen/Codeine Phosphate 1 tab 03/08/19 13:49 Tylenol #3 PO Q6H PRN Pain , Severe (7-10) Albuterol 2.5 mg 03/08/19 13:54 Proventil IH Q4H PRN Shortness Of Breath Amlodipine Besylate 5 mg 03/09/19 10:00 03/09/19 10:37 Norvasc PO 5 mg QDAY GABO Administration Atorvastatin Calcium 40 mg 03/08/19 22:00 03/08/19 21:33 Lipitor PO 40 mg QHS GABO Administration Benzonatate 100 mg 03/08/19 14:00 03/09/19 05:13 Tessalon Perles PO 100 mg Q8HR GABO Administration Cyclobenzaprine HCl 10 mg 03/08/19 14:00 03/09/19 10:37 Flexeril PO 10 mg TID GABO Administration Dicyclomine HCl 10 mg 03/08/19 14:00 Bentyl PO QID PRN Pain Enoxaparin Sodium 40 mg 03/08/19 22:00 03/08/19 21:33 Lovenox SUB-Q 40 mg QDAY@2200 GABO Administration Hydralazine HCl 10 mg 03/08/19 14:02 03/08/19 23:27 Apresoline IV 10 mg Q4H PRN Administration Hypertension Ibuprofen 600 mg 03/08/19 13:49 03/08/19 17:12 Motrin PO 600 mg Q6H PRN Administration Pain, Moderate (4-6) Lidocaine HCl 5 ml 03/08/19 13:49 Lidocaine Viscous 2% PO QID PRN Pain Morphine Sulfate 2 mg 03/08/19 13:54 03/08/19 23:28 Morphine IV 2 mg Q4H PRN Administration Pain, Moderate (4-6) Ondansetron HCl 4 mg 03/08/19 13:49 03/08/19 19:22 Zofran Odt PO 4 mg Q8HR PRN Administration Nausea Pantoprazole Sodium 20 mg 03/09/19 10:00 03/09/19 10:37 Protonix PO 20 mg QDAY GABO Administration Prednisone 20 mg 03/09/19 10:00 03/09/19 10:37 Deltasone PO 20 mg QDAY GABO Administration Promethazine HCl 50 mg 03/08/19 13:49 Phenergan MD Q6H PRN Nausea Sodium Chloride 10 ml 03/08/19 22:00 03/08/19 21:34 Sodium Chloride Flush Syringe 10 Ml IV 10 ml BID GABO Administration Sodium Chloride 10 ml 03/08/19 13:54 Sodium Chloride Flush Syringe 10 Ml IV PRN PRN LINE FLUSH Tramadol HCl 50 mg 03/08/19 13:49 Ultram PO Q6HR PRN Pain
[2019-03-09] MEDS ORDERED: NORVASC PO ONE (11:00)
[2019-03-09] MEDS: MORPHINE IV PRN (20:06)
[2019-03-09] MEDS: LOVENOX SUB-Q SCH (21:41)
[2019-03-09] MEDS: SODIUM CHLORIDE FLUSH SYRINGE 10 ML IV SCH ×3 (21:42→22:01)
[2019-03-10] MEDS: TESSALON PERLES PO SCH ×2 (06:34→13:26)
[2019-03-10] MEDS: FLEXERIL PO SCH ×2 (08:16→13:26)
[2019-03-10] MEDS ORDERED: NORVASC PO SCH (10:00)
[2019-03-10] MEDS ORDERED: LEXISCAN IV ONE ×2 (11:09→12:00)
--- NOTE | 2019-03-10 12:14 | Progress Note ---
Assessment and Plan - Patient Problems (1) Chest pain Current Visit: Yes Status: Acute Qualifiers: Chest pain type: unspecified Qualified Code(s): R07.9 - Chest pain, unspecified Plan to address problem: The patient was admitted with atypical chest pain. Serial ECGs and normal, cardiac enzymes and normal. Her CT of the chest was negative for pulmonary embolism. The chest x-ray was negative, mild prominence of the cardiac silhouette, but clear lungs, no heart failure or interstitial edema. An echocardiogram done reported normal left ventricular systolic function, eject ion fraction 55-60%. Today, she underwent a Lexiscan thallium stress test, the results are pending. Patient is stable for cardiac discharge, after review of thallium stress test results. Subjective Date of service: 03/10/19 Interval history: The patient was admitted with atypical chest pain. Serial ECGs and normal, cardiac enzymes and normal. Her CT of the chest was negative for pulmonary embolism. The chest x-ray was negative, mild prominence of the cardiac silhouette, but clear lungs, no heart failure or interstitial edema. An echocardiogram done reported normal left ventricular systolic function, ejection fraction 55-60%. Today, she underwent a Lexiscan thallium stress test, the results are pending. Objective Vital Signs Temp Pulse Pulse Pulse Pulse Resp BP 03/10/19 10:00 68 68 68 18 03/10/19 07:36 97.7 F 64 14 146/95 03/10/19 04:42 98.1 F 69 18 155/88 03/10/19 03:00 68 03/10/19 00:05 98.5 F 79 18 139/86 03/09/19 19:38 98.1 F 91 H 18 152/85 03/09/19 19:25 85 03/09/19 17:16 98.5 F 77 18 153/89 03/09/19 12:57 98.2 F 68 16 144/84 Pulse Ox 03/10/19 10:00 99 03/10/19 07:36 97 03/10/19 04:42 98 03/10/19 03:00 03/10/19 00:05 98 03/09/19 19:38 98 03/09/19 19:25 03/09/19 17:16 99 03/09/19 12:57 97 - Physical Examination General: No Apparent Distress HEENT: Positive: PERRL Neck: Positive: neck supple Cardiac: Positive: Reg Rate and Rhythm Lungs: Positive: Decreased Breath Sounds Neuro: Positive: Grossly Intact Abdomen: Positive: Soft Skin: Positive: Clear Extremities: Absent: edema
[2019-03-10] MEDS ORDERED: TYLENOL ONE ×2 (12:19→12:26)
--- NOTE | 2019-03-10 13:04 | Discharge Summary ---
Providers - Providers Date of Admission: 03/08/19 13:54 Date of discharge: 03/10/19 Attending physician: LISETTE MEEYRS 03/08/19 Consult to Cardiac Rehabilitation [CONS] Routine Reason For Exam: Phase I 03/08/19 13:54 Consult to Cardiology [CONS] Routine Consulting Provider: JOSE DAVID LAU Reason For Exam: CHF Primary care physician: DESIGN TRANSFERRER Hospitalization Condition: Good Hospital course: Patient presents history of hypertension and chest pain atypical associated with some shortness of breath. Patient initial workup cardiac isoenzymes negative CT scan chest negative for PE or mass chest x-ray negative. No evidence of heart failure. Echocardiogram ejection fraction 55% and stress thallium unremarkable. Patient stable for discharge. Disposition: - TO HOME OR SELFCARE - Discharge Diagnoses (1) Chest pain Status: Acute Qualifiers: Chest pain type: unspecified Qualified Code(s): R07.9 - Chest pain, unspecified (2) Chest pain Status: Acute Comment: Chest pain noncardiogenic. Somewhat present with palpitation. Suspect costochondritis. Core Measure Documentation - Palliative Care Palliative Care/ Comfort Measures: Not Applicable - Core Measures Any of the following diagnoses?: none Exam - Constitutional Vitals: Temp Pulse Resp BP Pulse Ox 97.7 F 68 18 144/90 99 03/10/19 07:36 03/10/19 10:00 03/10/19 10:00 03/10/19 12:12 03/10/19 10:00 General appearance: Present: no acute distress, well-nourished - EENT Eyes: Present: PERRL ENT: hearing intact, clear oral mucosa - Neck Neck: Present: supple, normal ROM - Respiratory Respiratory effort: normal Respiratory: bilateral: CTA - Cardiovascular Heart Sounds: Present: S1 & S2. Absent: rub, click - Extremities Extremities: pulses symmetrical, No edema Peripheral Pulses: within normal limits - Abdominal General gastrointestinal: Present: soft, non-tender, non-distended, normal bowel sounds Female genitourinary: Present: normal - Integumentary Integumentary: Present: clear, warm, dry - Musculoskeletal Musculoskeletal: gait normal, strength equal bilaterally - Psychiatric Psychiatric: appropriate mood/affect, intact judgment & insight - Neurologic Neurologic: CNII-XII intact, moves all extremities Plan Activity: no restrictions Diet: low cholesterol Special Instructions: record daily BP diary Follow up with: PRIMARY CARE, [Primary Care Provider] - 3-5 Days Prescriptions: Butalb/Acetamin/Caff 50-325-40 [Fioricet] 1 tab PO Q8HR PRN #10 tablet PRN Reason: Headache AtorvaSTATin [Lipitor] 40 mg PO QHS #30 tablet amLODIPine [Norvasc] 10 mg PO DAILY #30 tablet Omeprazole 20 mg PO DAILY #30 tablet. Famotidine [Pepcid] 20 mg PO BID #30 tablet ALBUTEROL Inhaler (OR & NICU) [ProAir HFA Inhaler] 2 puff IH QID PRN #1 inhalation PRN Reason: Shortness Of Breath ALBUTEROL NEB's [Proventil 0.083% NEBS] 2.5 mg IH Q4H PRN #1 nebu PRN Reason: Shortness Of Breath Benzonatate [Tessalon Perles] 100 mg PO Q8HR #10 capsule Acetaminophen/Codeine [Tylenol /Codeine # 3 tab] 1 tab PO Q6H PRN #12 tab PRN Reason: Pain , Severe (7-10) Ondansetron [Zofran ODT TAB] 4 mg PO Q8HR #10 tab.[email or web address]
[2019-03-10] MEDS: DELTASONE PO SCH (13:08)
[2019-03-10 13:09] VITALS: BP 143/76
[2019-03-10] MEDS: PROTONIX PO SCH (13:09)
[2019-03-10] MEDS: SODIUM CHLORIDE FLUSH SYRINGE 10 ML IV SCH (13:10)
--- NOTE | 2019-03-11 05:55 | Treadmill Report ---
THALLIUM STRESS TEST LEFT VENTRICLE: Left ventricular chamber size is within normal spread. Perfusion study demonstrates a small anteroapical defect consistent with breast attenuation artifact. Otherwise, homogeneous uptake of the tracer in all segments, no significant perfusion defects identified. Gated analysis demonstrates normal left ventricular systolic function, ejection fraction 53%. CONCLUSION: Normal myocardial perfusion study. JOB# [id number] CA/NTS
== END 2019-03-10 18:30 | disposition home or self-care (01) | DRG 206 ==
LOC: ED 10:18 → 4A 13:54
PROVIDERS: ADMIT Internal Medicine; ATTEND Internal Medicine
DX: M94.0 Chondrocostal junction syndrome [Tietze] (principal); I24.9 Acute ischemic heart disease, unspecified; I10 Essential (primary) hypertension; K21.9 Gastro-esophageal reflux disease without esophagitis; E66.9 Obesity, unspecified; G43.909 Migraine, unspecified, not intractable, without status migrainosus; E87.6 Hypokalemia; I16.0 Hypertensive urgency; Z87.11 Personal history of peptic ulcer disease; Z91.14 Patient's other noncompliance with medication regimen; Z71.89 Other specified counseling; Z90.49 Acquired absence of other specified parts of digestive tract; Z90.710 Acquired absence of both cervix and uterus; Z98.51 Tubal ligation status; Z82.49 Family history of ischemic heart disease and other diseases of the circulatory system; Z83.3 Family history of diabetes mellitus; Z79.899 Other long term (current) drug therapy; Z68.32 Body mass index [BMI] 32.0-32.9, adult
CPT/HCPCS: 36415; 71045; 71275; 78452; 80048; 80076; 80307; 81001; 83880; 84484; 85025; 85379; 85610; 85730; 93005; 93010; 93017; 93306; G0378; A9270-GY; A9502; J0360; J1650; J2270; J2785; J7512; Q0162; Q9967

== ENCOUNTER 2019-04-08 14:57 | Emergency (ER) | payer OTHER, MEDICARE | END 2019-04-08 17:45 | disposition left against medical advice (07) | LOC: ED 14:57 | DX: R51 Headache (principal); Z53.21 Procedure and treatment not carried out due to patient leaving prior to being seen by health care provider ==

== ENCOUNTER 2019-05-14 08:30 | Outpatient (CLI) | payer MEDICARE ==
--- NOTE | 2019-05-14 11:24 | Mammography Report ---
BILATERAL DIGITAL SCREENING MAMMOGRAM WITH CAD INDICATION: Routine screening mammography. TECHNIQUE: Digital bilateral 2D mammography was obtained in the craniocaudal and mediolateral obliq ue projections. This examination was interpreted with the benefit of Computer-Aided Detection analysi s. COMPARISON: None available. FINDINGS: Breast Density: The breasts are heterogeneously dense, which may obscure small masses. There is no evidence of dominant mass, suspicious calcifications or architectural distortion in eith er breast. IMPRESSION: BI-RADS Category 1: Negative. No mammographic evidence of malignancy. Recommend routine screening m ammography in one year. A "normal" or negative report should not discourage follow up or biopsy of a clinically significant f inding. A written summary of these findings will be mailed to the patient. The patient will be entered into a mammography reporting system which will generate a reminder letter for the patient's next appointmen t at the appropriate interval. The [employer] recommends yearly mammograms starting at age 40 and continuing as l shadi as a woman is in good health. Breast MRI is recommended for women with an approximate 20-25% or greater lifetime risk of breast cancer, including women with a strong family history of breast or ova evin cancer or who have been treated for Hodgkin's disease. Signer Name: Tomas Vasquez MD Signed: 05/14/2019 11:20 AM Workstation Name: [id number]
== END 2019-05-14 08:31 | disposition home or self-care (01) ==
LOC: MAMMO 08:30
PROVIDERS: ATTEND Hospitalist
DX: Z12.31 Encounter for screening mammogram for malignant neoplasm of breast (principal); I10 Essential (primary) hypertension; K21.9 Gastro-esophageal reflux disease without esophagitis; Z90.710 Acquired absence of both cervix and uterus
CPT/HCPCS: 77067

== ENCOUNTER 2019-05-17 07:19 | Emergency (ER) | payer MEDICARE ==
[2019-05-17 08:22] VITALS: BP 157/105
--- NOTE | 2019-05-17 09:19 | Emergency Department Report ---
ED General Adult HPI - General Chief complaint: Pain General Stated complaint: LT SIDE PAIN Time Seen by Provider: 05/17/19 08:17 Source: patient Mode of arrival: Ambulatory Limitations: No Limitations - History of Present Illness Initial comments: Reports generalized pain. 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 Denies trauma. Reports hx of HTN. Reports compliant with medications. Reports she checks her BP at home and that she gets high BP readings at home. Reports she has not discussed the uncontrolled HTN with her PCP. -: month(s) (approximately 3 months) Radiation: non-radiation Severity scale (0 -10): 2 Quality: aching Consistency: intermittent Improves with: medication Worsens with: movement Associated Symptoms: denies other symptoms Treatments Prior to Arrival: NSAID (reports she took a motrin for pain sometimes) - Related Data Previous Rx's Medication Instructions Recorded Last Taken Type Amlodipine Besylate [Norvasc] 5 mg PO QDAY #30 tablet 11/09/18 2 Days Ago Rx ~03/06/19 Dicyclomine [Bentyl] 10 mg PO QID PRN #20 capsule 11/09/18 1 Month Ago Rx ~02/06/19 Cyclobenzaprine [Flexeril 10 MG 10 mg PO TID #20 tablet 02/17/19 03/08/19 Rx TAB] ALBUTEROL Inhaler (OR & NICU) 2 puff IH QID PRN #1 inhalation 03/10/19 Unknown Rx [ProAir HFA Inhaler] ALBUTEROL NEB's [Proventil 0.083% 2.5 mg IH Q4H PRN #1 nebu 03/10/19 Unknown Rx NEBS] Acetaminophen [Acetaminophen TAB] 650 mg PO Q4H PRN tablet 03/10/19 Unknown Rx Acetaminophen/Codeine [Tylenol 1 tab PO Q6H PRN #12 tab 03/10/19 Unknown Rx /Codeine # 3 tab] AtorvaSTATin [Lipitor] 40 mg PO QHS #30 tablet 03/10/19 Unknown Rx Benzonatate [Tessalon Perles] 100 mg PO Q8HR #10 capsule 03/10/19 Unknown Rx Butalb/Acetamin/Caff 50-325-40 1 tab PO Q8HR PRN #10 tablet 03/10/19 Unknown Rx [Fioricet 50-325-40] Famotidine [Pepcid] 20 mg PO BID #30 tablet 03/10/19 Unknown Rx Omeprazole 20 mg PO DAILY #30 tablet. 03/10/19 Unknown Rx Ondansetron [Zofran ODT TAB] 4 mg PO Q8HR #10 tab.rapdis 03/10/19 Unknown Rx amLODIPine [Norvasc] 10 mg PO DAILY #30 tablet 03/10/19 Unknown Rx Ibuprofen [Motrin] 400 mg PO Q6H PRN #20 tablet 05/17/19 Unknown Rx methOCARBAMOL [Robaxin TAB] 500 mg PO BID PRN #14 tab 05/17/19 Unknown Rx Allergies Allergy/AdvReac Type Severity Reaction Status Date / Time No Known Allergies Allergy Verified 04/08/19 14:59 ED Review of Systems ROS: Stated complaint: LT SIDE PAIN Other details as noted in HPI Other: GENERAL: No weight change, fatigue, weakness, fever, chills, or night sweats SKIN: No changes in skin or hair, no itching, no rashes, no jaundice HEAD: No trauma, headache, or visual changes EYES: No blurriness, tearing, itching, acute visual loss, conjunctival discoloration, or scleral icterus EARS: No hearing loss, tinnitus, vertigo, or earache NOSE: No rhinorrhea, stuffiness, sneezing, itching, or epistaxis MOUTH: No bleeding gums, hoarseness, sore throat, or swelling CARDIAC: No new murmur, chest pain, palpitations, dyspnea on exertion, orthopnea, PND, or edema RESPIRATORY: No shortness of breath, wheeze, cough, sputum production, hemoptysis, pneumonia, asthma, bronchitis, or emphysema GI: No change in appetite, nausea, vomiting, dysphagia, change in bowel frequency, diarrhea, constipation, bleeding, hematemesis, melena, hematochezia, or abdominal pain URINARY: No frequency, urgency, polyuria, dysuria, hematuria, or incontinence MUSCULOSKELETAL: Generalized joint pain periodically for approximately 3 months. No muscle weakness, joint stiffness, decrease in range of motion, redness, swelling NEUROLOGIC: No loss of sensation, numbness, tingling, tremors, weakness, paralysis, seizures HEMATOLOGIC: No anemia, easy bruising, bleeding, petechiae, or purpura ENDOCRINE: No hot or cold intolerance, sweating, polyuria, polydipsia or, polyphagia no thyroid problems ED Past Medical Hx - Past Medical History Previous Medical History?: Yes Hx Hypertension: Yes Hx Congestive Heart Failure: No Hx Diabetes: No Hx GERD: Yes Hx Headaches / Migraines: Yes Hx Asthma: No Hx COPD: No Additional medical history: Gastric Ulcers - Surgical History Past Surgical History?: Yes Hx Cholecystectomy: Yes Additional Surgical History: C section X4. Hysterectomy. Tubal ligation. - Social History Smoking Status: Never Smoker Substance Use Type: None - Medications Home Medications: Home Medications Medication Instructions Recorded Confirmed Last Taken Type Amlodipine Besylate [Norvasc] 5 mg PO QDAY #30 tablet 11/09/18 03/08/19 2 Days Ago Rx ~03/06/19 Dicyclomine [Bentyl] 10 mg PO QID PRN #20 capsule 11/09/18 03/08/19 1 Month Ago Rx ~02/06/19 Cyclobenzaprine [Flexeril 10 MG 10 mg PO TID #20 tablet 02/17/19 03/08/19 03/08/19 Rx TAB] ALBUTEROL Inhaler (OR & NICU) 2 puff IH QID PRN #1 inhalation 03/10/19 Unknown Rx [ProAir HFA Inhaler] ALBUTEROL NEB's [Proventil 0.083% 2.5 mg IH Q4H PRN #1 nebu 03/10/19 Unknown Rx NEBS] Acetaminophen [Acetaminophen TAB] 650 mg PO Q4H PRN tablet 03/10/19 Unknown Rx Acetaminophen/Codeine [Tylenol 1 tab PO Q6H PRN #12 tab 03/10/19 Unknown Rx /Codeine # 3 tab] AtorvaSTATin [Lipitor] 40 mg PO QHS #30 tablet 03/10/19 Unknown Rx Benzonatate [Tessalon Perles] 100 mg PO Q8HR #10 capsule 03/10/19 Unknown Rx Butalb/Acetamin/Caff 50-325-40 1 tab PO Q8HR PRN #10 tablet 03/10/19 Unknown Rx [Fioricet 50-325-40] Famotidine [Pepcid] 20 mg PO BID #30 tablet 03/10/19 Unknown Rx Omeprazole 20 mg PO DAILY #30 tablet. 03/10/19 Unknown Rx Ondansetron [Zofran ODT TAB] 4 mg PO Q8HR #10 tab.rapdis 03/10/19 Unknown Rx amLODIPine [Norvasc] 10 mg PO DAILY #30 tablet 03/10/19 Unknown Rx Ibuprofen [Motrin] 400 mg PO Q6H PRN #20 tablet 05/17/19 Unknown Rx methOCARBAMOL [Robaxin TAB] 500 mg PO BID PRN #14 tab 05/17/19 Unknown Rx ED Physical Exam - General Limitations: No Limitations - Other Other exam information: GENERAL: Patient in no acute distress HEAD: Normocephalic, atraumatic EYES: PERRLA, EOM intact, no scleral icterus, no papilledema, no conjunctival hemorrhage, visual cameron and acuity wnl, NOSE: No tenderness, discharge, sinus tenderness MOUTH: No erythema, bleeding, exudate HEART: Regular rate and rhythm, no murmur, S1-S2 are auscultated, pulses are symmetric LUNGS: No wheezing, rales, rhonchi, bilateral breath sounds ABDOMEN: Normal bowel sounds, no tenderness, no rebound, no guarding, no masses, no CVA tenderness MUSCULOSKELETAL: Normal joint range of motion, no redness, no swelling, no tenderness NEUROLOGIC: GCS 15, Alert and Oriented x3, Cranial nerves intact, normal sensation, normal strength, normal gait, no cerebellar deficit SKIN: Skin is warm and dry, no wounds, no rashes ED Course Vital Signs 05/17/19 05/17/19 07:31 08:21 Temperature 97.8 F 97.9 F Pulse Rate 69 67 Respiratory 16 20 Rate Blood Pressure 157/105 [Right] O2 Sat by Pulse 100 100 Oximetry ED Medical Decision Making - Medical Decision Making Patient comfortable. Plan discharge with outpatient follow up. Discussed the importance of monitoring BP and discussing with PCP elevated BP readings at home. Patient given strict return precautions for focal weakness, chest pain, worsening dyspnea. Patient agrees with plan and will return if symptoms worsen. Critical care attestation.: If time is entered above; I have spent that time in minutes in the direct care of this critically ill patient, excluding procedure time. ED Disposition Clinical Impression: Generalized pain, Hypertensive urgency Disposition: DC-01 TO HOME OR SELFCARE Is pt being admited?: No Condition: Stable Instructions: Hypertension (ED), Arthralgia (ED) Prescriptions: Ibuprofen [Motrin] 400 mg PO Q6H PRN #20 tablet PRN Reason: Pain, Mild (1-3) methOCARBAMOL [Robaxin TAB] 500 mg PO BID PRN #14 tab PRN Reason: Spasms Referrals: MOHINDER MINOR MD [Primary Care Provider] - 2-3 Days LAMAR AVERY MD [Staff Physician] - 2-3 Days Forms: Work/School Release Form(ED) Time of Disposition: 09:17
== END 2019-05-17 09:50 | disposition home or self-care (01) ==
LOC: ED 07:19
DX: I16.0 Hypertensive urgency (principal); I10 Essential (primary) hypertension; R52 Pain, unspecified; K21.9 Gastro-esophageal reflux disease without esophagitis; G43.909 Migraine, unspecified, not intractable, without status migrainosus; Z90.49 Acquired absence of other specified parts of digestive tract; Z79.899 Other long term (current) drug therapy; Z90.710 Acquired absence of both cervix and uterus; Z98.51 Tubal ligation status
CPT/HCPCS: 99282

== ENCOUNTER 2019-05-25 04:29 | Emergency (ER) | payer MEDICARE ==
[2019-05-25 05:16] LABS: Basophils # (Auto) 0.1 K/mm3 (0.0-0.1); Basophils % (Auto) 0.8 % (0.0-1.8); Eosinophils # (Auto) 0.1 K/mm3 (0.0-0.4); Eosinophils % (Auto) 0.6 % (0.0-4.3); Hematocrit 39.8 % (30.3-42.9); Hemoglobin 13.9 gm/dl (10.1-14.3); Lymphocytes # (Auto) 1.8 K/mm3 (1.2-5.4); Lymphocytes % (Auto) 10.7 % (13.4-35.0); Mean Corpuscular HGB Conc 35 % (30-34); Mean Corpuscular Hemoglobin 33 pg (28-32); Mean Corpuscular Volume 95 fl (79-97); Monocytes # (Auto) 1.2 K/mm3 (0.0-0.8); Monocytes % (Auto) 7.4 % (0.0-7.3); Platelet Count 300 K/mm3 (140-440); Red Blood Count 4.18 M/mm3 (3.65-5.03); Red Cell Distribution Width 13.2 % (13.2-15.2)
[2019-05-25] MEDS ORDERED: LEVSIN SL SL ONE (05:20)
[2019-05-25] MEDS ORDERED: ZOFRAN IV STA (05:20)
[2019-05-25] MEDS ORDERED: BENADRYL IV STA (05:20)
[2019-05-25] MEDS ORDERED: TORADOL IV STA (05:20)
[2019-05-25] MEDS ORDERED: NACL 0.9% 1000 ML 1,000 ML IV ONE (05:20)
[2019-05-25 05:39] LABS: Alanine Aminotransferase 89 units/L (7-56); Albumin 4.3 g/dL (3.9-5); BUN/Creatinine Ratio 12; Blood Urea Nitrogen 12 mg/dL (7-17); Calcium 9.1 mg/dL (8.4-10.2); Hemolysis Index 8; Lipase 94 units/L (13-60)
--- NOTE | 2019-05-25 06:33 | Emergency Department Report ---
ED Abdominal Pain HPI - General Chief Complaint: Abdominal Pain Stated Complaint: SEVERE ABD PAIN Time Seen by Provider: 05/25/19 05:19 Source: patient Mode of arrival: Ambulatory Limitations: No Limitations - History of Present Illness MD Complaint: abdominal pain -: Gradual Location: diffuse Migration to: no migration Severity scale (0 -10): 6 - Related Data Previous Rx's Medication Instructions Recorded Last Taken Type Amlodipine Besylate [Norvasc] 5 mg PO QDAY #30 tablet 11/09/18 2 Days Ago Rx ~03/06/19 Dicyclomine [Bentyl] 10 mg PO QID PRN #20 capsule 11/09/18 1 Month Ago Rx ~02/06/19 Cyclobenzaprine [Flexeril 10 MG 10 mg PO TID #20 tablet 02/17/19 03/08/19 Rx TAB] ALBUTEROL Inhaler (OR & NICU) 2 puff IH QID PRN #1 inhalation 03/10/19 Unknown Rx [ProAir HFA Inhaler] ALBUTEROL NEB's [Proventil 0.083% 2.5 mg IH Q4H PRN #1 nebu 03/10/19 Unknown Rx NEBS] Acetaminophen [Acetaminophen TAB] 650 mg PO Q4H PRN tablet 03/10/19 Unknown Rx Acetaminophen/Codeine [Tylenol 1 tab PO Q6H PRN #12 tab 03/10/19 Unknown Rx /Codeine # 3 tab] AtorvaSTATin [Lipitor] 40 mg PO QHS #30 tablet 03/10/19 Unknown Rx Benzonatate [Tessalon Perles] 100 mg PO Q8HR #10 capsule 03/10/19 Unknown Rx Butalb/Acetamin/Caff 50-325-40 1 tab PO Q8HR PRN #10 tablet 03/10/19 Unknown Rx [Fioricet 50-325-40] Famotidine [Pepcid] 20 mg PO BID #30 tablet 03/10/19 Unknown Rx Omeprazole 20 mg PO DAILY #30 tablet. 03/10/19 Unknown Rx Ondansetron [Zofran ODT TAB] 4 mg PO Q8HR #10 tab.rapdis 03/10/19 Unknown Rx amLODIPine [Norvasc] 10 mg PO DAILY #30 tablet 03/10/19 Unknown Rx Ibuprofen [Motrin] 400 mg PO Q6H PRN #20 tablet 05/17/19 Unknown Rx methOCARBAMOL [Robaxin TAB] 500 mg PO BID PRN #14 tab 05/17/19 Unknown Rx Ciprofloxacin HCl [Ciprofloxacin 500 mg PO Q12HR #28 tab 05/25/19 Unknown Rx TAB] Hyoscyamine Subl [Levsin Sl] 0.125 mg SL Q4HR PRN #16 tablet 05/25/19 Unknown Rx metroNIDAZOLE [Flagyl] 500 mg PO ONCE #4 tab 05/25/19 Unknown Rx metroNIDAZOLE [Flagyl] 500 mg PO Q12HR #28 tab 05/25/19 Unknown Rx Allergies Allergy/AdvReac Type Severity Reaction Status Date / Time No Known Allergies Allergy Verified 04/08/19 14:59 ED Review of Systems ROS: Stated complaint: SEVERE ABD PAIN Other details as noted in HPI Comment: All other systems reviewed and negative ED Past Medical Hx - Past Medical History Previous Medical History?: Yes Hx Hypertension: Yes Hx Congestive Heart Failure: No Hx Diabetes: No Hx GERD: Yes Hx Headaches / Migraines: Yes Hx Asthma: No Hx COPD: No Additional medical history: Gastric Ulcers - Surgical History Past Surgical History?: Yes Hx Cholecystectomy: Yes Additional Surgical History: C section X4. Hysterectomy. Tubal ligation. - Social History Smoking Status: Never Smoker Substance Use Type: None - Medications Home Medications: Home Medications Medication Instructions Recorded Confirmed Last Taken Type Amlodipine Besylate [Norvasc] 5 mg PO QDAY #30 tablet 11/09/18 03/08/19 2 Days Ago Rx ~03/06/19 Dicyclomine [Bentyl] 10 mg PO QID PRN #20 capsule 11/09/18 03/08/19 1 Month Ago Rx ~02/06/19 Cyclobenzaprine [Flexeril 10 MG 10 mg PO TID #20 tablet 02/17/19 03/08/19 03/08/19 Rx TAB] ALBUTEROL Inhaler (OR & NICU) 2 puff IH QID PRN #1 inhalation 03/10/19 Unknown Rx [ProAir HFA Inhaler] ALBUTEROL NEB's [Proventil 0.083% 2.5 mg IH Q4H PRN #1 nebu 03/10/19 Unknown Rx NEBS] Acetaminophen [Acetaminophen TAB] 650 mg PO Q4H PRN tablet 03/10/19 Unknown Rx Acetaminophen/Codeine [Tylenol 1 tab PO Q6H PRN #12 tab 03/10/19 Unknown Rx /Codeine # 3 tab] AtorvaSTATin [Lipitor] 40 mg PO QHS #30 tablet 03/10/19 Unknown Rx Benzonatate [Tessalon Perles] 100 mg PO Q8HR #10 capsule 03/10/19 Unknown Rx Butalb/Acetamin/Caff 50-325-40 1 tab PO Q8HR PRN #10 tablet 03/10/19 Unknown Rx [Fioricet 50-325-40] Famotidine [Pepcid] 20 mg PO BID #30 tablet 03/10/19 Unknown Rx Omeprazole 20 mg PO DAILY #30 tablet.dr 03/10/19 Unknown Rx Ondansetron [Zofran ODT TAB] 4 mg PO Q8HR #10 tab.rapdis 03/10/19 Unknown Rx amLODIPine [Norvasc] 10 mg PO DAILY #30 tablet 03/10/19 Unknown Rx Ibuprofen [Motrin] 400 mg PO Q6H PRN #20 tablet 05/17/19 Unknown Rx methOCARBAMOL [Robaxin TAB] 500 mg PO BID PRN #14 tab 05/17/19 Unknown Rx Ciprofloxacin HCl [Ciprofloxacin 500 mg PO Q12HR #28 tab 05/25/19 Unknown Rx TAB] Hyoscyamine Subl [Levsin Sl] 0.125 mg SL Q4HR PRN #16 tablet 05/25/19 Unknown Rx metroNIDAZOLE [Flagyl] 500 mg PO ONCE #4 tab 05/25/19 Unknown Rx metroNIDAZOLE [Flagyl] 500 mg PO Q12HR #28 tab 05/25/19 Unknown Rx ED Physical Exam - General Limitations: No Limitations General appearance: alert, in no apparent distress - Head Head exam: Present: atraumatic, normocephalic - Eye Eye exam: Present: normal appearance, PERRL - ENT ENT exam: Present: normal exam, mucous membranes moist - Neck Neck exam: Present: normal inspection, full ROM - Respiratory Respiratory exam: Present: normal lung sounds bilaterally. Absent: respiratory distress - Cardiovascular Cardiovascular Exam: Present: regular rate, normal rhythm. Absent: systolic murmur, diastolic murmur, rubs, gallop - GI/Abdominal GI/Abdominal exam: Present: soft, normal bowel sounds - Extremities Exam Extremities exam: Present: normal inspection - Back Exam Back exam: Present: normal inspection - Neurological Exam Neurological exam: Present: alert, oriented X3 - Psychiatric Psychiatric exam: Present: normal affect, normal mood - Skin Skin exam: Present: warm, dry, intact, normal color. Absent: rash ED Course Vital Signs 05/25/19 05/25/19 04:36 06:03 Temperature 98 F Pulse Rate 66 Respiratory 18 16 Rate Blood Pressure 176/100 O2 Sat by Pulse 100 Oximetry ED Medical Decision Making - Lab Data Result diagrams: 05/25/19 05:03 05/25/19 05:03 - Medical Decision Making 43-year-old female sudden onset of abdominal pain associated with nausea and one episode of vomiting. She has had a history of previous acute abdominal pain with a similar episode back in November. Gallbladder is removed. However, her liver enzymes are slightly elevated as well as her lipase. White count slightly elevated as well, but told total. Total bili is normal. Renal function is normal. CT scan shows enteritis but no significant diverticulitis. It is unclear whether this is an evolving pancreatitis, but she is able to tolerate oral and pain has improved. We'll place her on anti-body aches antinausea medication and something to help the abdominal pain, have her reevaluate his abdominal pain 24-48 hours and advised to return to emergency department should she develop any worsening symptoms Critical care attestation.: If time is entered above; I have spent that time in minutes in the direct care of this critically ill patient, excluding procedure time. ED Disposition Clinical Impression: Enteritis, Elevated liver enzymes, Nausea Disposition: DC-01 TO HOME OR SELFCARE Is pt being admited?: No Does the pt Need Aspirin: No Condition: Stable Instructions: Abdominal Pain (ED), Infectious Colitis (ED), Acute Abdominal Pain (ED) Referrals: [facility] [Provider Group] - 24 Hours ALAMO JOELLEN DELONG MD [Primary Care Provider] - 24 Hours
--- NOTE | 2019-05-25 06:34 | Cat Scan Report ---
CT ABDOMEN AND PELVIS WITH CONTRAST HISTORY: Lower abdominal pain with nausea and vomiting. COMPARISON: CT of the abdomen and pelvis with contrast from 11/09/2018. TECHNIQUE: Axial, coronal and sagittal CT imaging of the abdomen and pelvis was performed during inj ection of 100 mL Omnipaque [address] scans at this location are performed using CT dose r eduction for ALARA by means of automated exposure control. FINDINGS: LOWER CHEST: No significant abnormality. LIVER: No significant abnormality. BILIARY: Prior cholecystectomy. Stable prominence of the bile ducts is consistent with surgical absen ce of the gallbladder. PANCREAS: No significant abnormality. SPLEEN: No significant abnormality. ADRENALS: No significant abnormality. KIDNEYS AND URETERS: No significant abnormality. GI TRACT: No significant abnormality of the stomach. Fluid-filled distal small bowel loops are presen t with scattered air-fluid levels without suspicious dilatation or thickening. Colonic diverticulosis is noted without evidence of diverticulitis. No significant abnormality of the appendix. PERITONEUM: A small amount of free fluid along the pelvis is likely physiologic. No free air or fluid collection. LYMPH NODES: No significant adenopathy. VASCULATURE: No significant abnormality. URINARY BLADDER: No significant abnormality. REPRODUCTIVE ORGANS: Prior hysterectomy. No significant abnormality. ADDITIONAL FINDINGS: None. SKELETAL SYSTEM: No significant abnormality. IMPRESSION: 1. Possible enteritis. 2. Colonic diverticulosis without evidence of diverticulitis. Signer Name: Manish Nice MD Signed: 05/25/2019 6:30 AM Workstation Name: [id number]
[2019-05-25 06:57] LABS: Bilirubin,Urine NEG (Negative); Blood,Urine NEG (Negative); Color,Urine Yellow (Yellow); Protein,Urine <15 mg/dL mg/dL (Negative); Urobilinogen,Urine < 2.0 mg/dL (<2.0); WBC,Urine < 1.0 /HPF (0.0-6.0)
[2019-05-25 07:44] VITALS: BP 150/100
== END 2019-05-25 07:40 | disposition home or self-care (01) ==
LOC: ED 04:29
DX: K52.9 Noninfective gastroenteritis and colitis, unspecified (principal); I10 Essential (primary) hypertension; K21.0 Gastro-esophageal reflux disease with esophagitis; G43.909 Migraine, unspecified, not intractable, without status migrainosus; Z90.49 Acquired absence of other specified parts of digestive tract; Z98.51 Tubal ligation status; Z90.710 Acquired absence of both cervix and uterus; Z79.899 Other long term (current) drug therapy
CPT/HCPCS: 36415; 74177; 80053; 81001; 83690; 85025; 96361; 96374; 96375; 99284; J1200; J1885; J2405; J7030; Q9967

== ENCOUNTER 2019-09-20 22:13 | Emergency (ER) | payer MEDICARE, OTHER ==
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
[2019-09-20] MEDS ORDERED: MUPIROCIN 2% OINT 22 GM TP ONE (23:48)
[2019-09-21 00:53] VITALS: BP 161/91
== END 2019-09-21 00:54 | disposition home or self-care (01) ==
LOC: ED 22:13
DX: T25.221A Burn of second degree of right foot, initial encounter (principal); I10 Essential (primary) hypertension; K21.9 Gastro-esophageal reflux disease without esophagitis; G43.909 Migraine, unspecified, not intractable, without status migrainosus; Z98.51 Tubal ligation status; Z90.710 Acquired absence of both cervix and uterus; Z79.1 Long term (current) use of non-steroidal anti-inflammatories (NSAID); Z79.899 Other long term (current) drug therapy; Z90.49 Acquired absence of other specified parts of digestive tract; X19.XXXA Contact with other heat and hot substances, initial encounter; Y93.89 Activity, other specified; Y92.89 Other specified places as the place of occurrence of the external cause; Y99.8 Other external cause status
CPT/HCPCS: 99282

== ENCOUNTER 2019-12-22 11:21 | Emergency (ER) | payer MEDICARE, OTHER ==
--- NOTE | 2019-12-22 11:51 | Event Note ---
ED Screening Note ED Screening Note: 44 yo female with hx of migraine ROSADO, HTN presents with chest pain shortness of breath ROSADO. This initial assessment/diagnostic orders/clinical plan/treatment(s) is/are subject to change based on patients health status, clinical progression and re- assessment by fellow clinical providers in the ED. Further treatment and workup at subsequent clinical providers discretion. Patient/guardian urged not to elope from the ED as their condition may be serious if not clinically assessed and managed. Initial orders include: labs ekg cxr
--- NOTE | 2019-12-22 12:32 | XRay Report ---
CHEST 2 VIEWS INDICATION / CLINICAL INFORMATION: Chest pain. COMPARISON: 03/08/2019. FINDINGS: SUPPORT DEVICES: None. HEART / MEDIASTINUM: The heart size and pulmonary vasculature are normal. The aorta is normal in [place]. LUNGS / PLEURA: No significant pulmonary or pleural abnormality. No pneumothorax. ADDITIONAL FINDINGS: No significant additional findings. IMPRESSION: No acute abnormality or significant change. Signer Name: Edin Morocho MD Signed: 12/22/2019 12:28 PM Workstation Name: [id number]
[2019-12-22 12:33] LABS: Basophils # (Auto) 0.1 K/mm3 (0.0-0.1); Basophils % (Auto) 1.1 % (0.0-1.8); Eosinophils # (Auto) 0.2 K/mm3 (0.0-0.4); Eosinophils % (Auto) 1.9 % (0.0-4.3); Hematocrit 40.9 % (30.3-42.9); Hemoglobin 14.2 gm/dl (10.1-14.3); Lymphocytes # (Auto) 1.8 K/mm3 (1.2-5.4); Lymphocytes % (Auto) 22.6 % (13.4-35.0); Mean Corpuscular HGB Conc 35 % (30-34); Mean Corpuscular Volume 94 fl (79-97); Monocytes # (Auto) 0.6 K/mm3 (0.0-0.8); Monocytes % (Auto) 7.6 % (0.0-7.3); Platelet Count 365 K/mm3 (140-440); Red Blood Count 4.35 M/mm3 (3.65-5.03); Red Cell Distribution Width 12.9 % (13.2-15.2)
[2019-12-22 13:00] LABS: Alanine Aminotransferase 33 units/L (7-56); Albumin 4.1 g/dL (3.9-5); BUN/Creatinine Ratio 16; Blood Urea Nitrogen 13 mg/dL (7-17); Hemolysis Index 22
[2019-12-22] MEDS ORDERED: KETOROLAC 10 MG TAB PO ONE (13:11)
--- NOTE | 2019-12-22 13:13 | Emergency Department Report ---
ED Chest Pain HPI - General Chief Complaint: Chest Pain Stated Complaint: CP Time Seen by Provider: 12/22/19 13:02 Source: patient Mode of arrival: Ambulatory Limitations: No Limitations - History of Present Illness Initial Comments: This is a 44-year-old -Citizen Of [place] female that presents to the emergency room with right-sided chest pain for 1 week. Past medical history of hypertension, GERD, and headache. Patient reports prior history of irregular heart EKG by primary care doctor 3 to 4 years ago. Patient states she currently no longer have a primary care doctor and never followed up with a gynecology teacher. Patient states she currently work in [employer] and lifts boxes throughout the day. She reports pain is achy intensity to the right side of chest and worse when she elevate her right upper extremity. She denies recent injury, palpitations, cough, fever, weakness, chills, or recent injury. MD Complaint: chest pain Onset/Timin -: days(s) Pain Location: right chest Pain Radiation: RUE Severity: moderate Severity scale (0 -10): 7 Quality: aching Consistency: intermittent Improves With: nothing Worsens With: movement (Of right upper extremity) re: denies: nausea, vomting, diaphoresis, dyspnea, sense of impending doom Other Symptoms: denies: cough, fever, syncope, rash, acid taste in mouth, leg swelling, palpitations, burping Treatments Prior to Arrival: none Aspirin use within the Past 7 Days: (0) No - Related Data On Oral Contraceptives: No Previous Rx's Medication Instructions Recorded Last Taken Type Dicyclomine [Bentyl] 10 mg PO QID PRN #20 capsule 11/09/18 1 Month Ago Rx ~02/06/19 Cyclobenzaprine [Flexeril 10 MG 10 mg PO TID #20 tablet 02/17/19 03/08/19 Rx TAB] ALBUTEROL NEB's [Proventil 0.083% 2.5 mg IH Q4H PRN #1 nebu 03/10/19 Unknown Rx NEBS] Acetaminophen [Acetaminophen TAB] 650 mg PO Q4H PRN tablet 03/10/19 Unknown Rx Acetaminophen/Codeine [Tylenol 1 tab PO Q6H PRN #12 tab 03/10/19 Unknown Rx /Codeine # 3 tab] Albuterol INH(or & Nicu Only) 2 puff IH QID PRN #1 inhalation 03/10/19 Unknown Rx [ProAir HFA Inhaler] AtorvaSTATin [Lipitor] 40 mg PO QHS #30 tablet 03/10/19 Unknown Rx Benzonatate [Tessalon Perles] 100 mg PO Q8HR #10 capsule 03/10/19 Unknown Rx Butalb/Acetamin/Caff 50-325-40 1 tab PO Q8HR PRN #10 tablet 03/10/19 Unknown Rx [Fioricet 50-325-40] Famotidine [Pepcid] 20 mg PO BID #30 tablet 03/10/19 Unknown Rx Omeprazole 20 mg PO DAILY #30 tablet.dr 03/10/19 Unknown Rx Ondansetron [Zofran ODT TAB] 4 mg PO Q8HR #10 tab.rapdis 03/10/19 Unknown Rx amLODIPine 10 mg PO DAILY #30 tablet 03/10/19 Unknown Rx Ibuprofen [Motrin] 400 mg PO Q6H PRN #20 tablet 05/17/19 Unknown Rx methOCARBAMOL [Robaxin TAB] 500 mg PO BID PRN #14 tab 05/17/19 Unknown Rx Ciprofloxacin HCl [Ciprofloxacin 500 mg PO Q12HR #28 tab 05/25/19 Unknown Rx TAB] Hyoscyamine Subl [Levsin Sl] 0.125 mg SL Q4HR PRN #16 tablet 05/25/19 Unknown Rx metroNIDAZOLE [Flagyl] 500 mg PO ONCE #4 tab 05/25/19 Unknown Rx metroNIDAZOLE [Flagyl] 500 mg PO Q12HR #28 tab 05/25/19 Unknown Rx Chlorhexidine Gluconate [Hibiclens] 10 ml TP BID #240 liquid 09/20/19 Unknown Rx Silver Sulfadiazine [Silvadene] 1 gm TP BID #50 cream..g. 09/20/19 Unknown Rx cephALEXin [Keflex] 500 mg PO Q6HR #40 capsule 09/20/19 Unknown Rx Amlodipine Besylate [Norvasc] 5 mg PO QDAY #30 tablet 12/22/19 Unknown Rx Ibuprofen [Motrin 800 MG tab] 800 mg PO Q8HR PRN #20 tablet 12/22/19 Unknown Rx Allergies Allergy/AdvReac Type Severity Reaction Status Date / Time No Known Allergies Allergy Verified 09/20/19 22:19 Heart Score - HEART Score History: Slightly suspicious EKG: Normal Age: < 45 Risk factors: 1-2 risk factors Troponin: < normal limit HEART Score: 1 - Critical Actions Critical Actions: 0-3 pts:0.9-1.7%risk of adverse cardiac event.Candidate for discharge ED Review of Systems ROS: Stated complaint: CP Other details as noted in HPI Constitutional: denies: chills, fever Respiratory: denies: cough, shortness of breath, wheezing Cardiovascular: chest pain. denies: palpitations Gastrointestinal: denies: abdominal pain, nausea, diarrhea Musculoskeletal: denies: back pain, joint swelling, arthralgia Skin: denies: rash, lesions Neurological: denies: headache, weakness, paresthesias Psychiatric: denies: anxiety, depression ED Past Medical Hx - Past Medical History Hx Hypertension: Yes Hx Congestive Heart Failure: No Hx Diabetes: No Hx GERD: Yes Hx Headaches / Migraines: Yes Hx Asthma: No Hx COPD: No Additional medical history: Gastric Ulcers - Surgical History Past Surgical History?: Yes Hx Cholecystectomy: Yes Additional Surgical History: C section X4. Hysterectomy. Tubal ligation. - Social History Smoking Status: Never Smoker Substance Use Type: None - Medications Home Medications: Home Medications Medication Instructions Recorded Confirmed Last Taken Type Dicyclomine [Bentyl] 10 mg PO QID PRN #20 capsule 11/09/18 03/08/19 1 Month Ago Rx ~02/06/19 Cyclobenzaprine [Flexeril 10 MG 10 mg PO TID #20 tablet 02/17/19 03/08/1903/08 Rx TAB] ALBUTEROL NEB's [Proventil 0.083% 2.5 mg IH Q4H PRN #1 nebu 03/10/19 Unknown Rx NEBS] Acetaminophen [Acetaminophen TAB] 650 mg PO Q4H PRN tablet 03/10/19 Unknown Rx Acetaminophen/Codeine [Tylenol 1 tab PO Q6H PRN #12 tab 03/10/19 Unknown Rx /Codeine # 3 tab] Albuterol INH(or & Nicu Only) 2 puff IH QID PRN #1 inhalation 03/10/19 Unknown Rx [ProAir HFA Inhaler] AtorvaSTATin [Lipitor] 40 mg PO QHS #30 tablet 03/10/19 Unknown Rx Benzonatate [Tessalon Perles] 100 mg PO Q8HR #10 capsule 03/10/19 Unknown Rx Butalb/Acetamin/Caff 50-325-40 1 tab PO Q8HR PRN #10 tablet 03/10/19 Unknown Rx [Fioricet 50-325-40] Famotidine [Pepcid] 20 mg PO BID #30 tablet 03/10/19 Unknown Rx Omeprazole 20 mg PO DAILY #30 tablet. 03/10/19 Unknown Rx Ondansetron [Zofran ODT TAB] 4 mg PO Q8HR #10 tab.rapdis 03/10/19 Unknown Rx amLODIPine 10 mg PO DAILY #30 tablet 03/10/19 Unknown Rx Ibuprofen [Motrin] 400 mg PO Q6H PRN #20 tablet 05/17/19 Unknown Rx methOCARBAMOL [Robaxin TAB] 500 mg PO BID PRN #14 tab 05/17/19 Unknown Rx Ciprofloxacin HCl [Ciprofloxacin 500 mg PO Q12HR #28 tab 05/25/19 Unknown Rx TAB] Hyoscyamine Subl [Levsin Sl] 0.125 mg SL Q4HR PRN #16 tablet 05/25/19 Unknown Rx metroNIDAZOLE [Flagyl] 500 mg PO ONCE #4 tab 05/25/19 Unknown Rx metroNIDAZOLE [Flagyl] 500 mg PO Q12HR #28 tab 05/25/19 Unknown Rx Chlorhexidine Gluconate [Hibiclens] 10 ml TP BID #240 liquid 09/20/19 Unknown Rx Silver Sulfadiazine [Silvadene] 1 gm TP BID #50 cream..g. 09/20/19 Unknown Rx cephALEXin [Keflex] 500 mg PO Q6HR #40 capsule 09/20/19 Unknown Rx Amlodipine Besylate [Norvasc] 5 mg PO QDAY #30 tablet 12/22/19 Unknown Rx Ibuprofen [Motrin 800 MG tab] 800 mg PO Q8HR PRN #20 tablet 12/22/19 Unknown Rx ED Physical Exam - General Limitations: No Limitations General appearance: alert, in no apparent distress - ENT ENT exam: Present: mucous membranes moist - Neck Neck exam: Present: normal inspection - Respiratory Respiratory exam: Present: normal lung sounds bilaterally, chest wall tenderness (Right costochondral joint tender to palpation, no erythema or swelling). Absent: respiratory distress, wheezes, rales, rhonchi, stridor - Cardiovascular Cardiovascular Exam: Present: regular rate, normal rhythm. Absent: systolic murmur, diastolic murmur, rubs, gallop - GI/Abdominal GI/Abdominal exam: Present: soft, normal bowel sounds. Absent: distended, tenderness, guarding, rebound, rigid - Extremities Exam Extremities exam: Present: normal inspection - Neurological Exam Neurological exam: Present: alert, oriented X3, normal gait - Psychiatric Psychiatric exam: Present: normal affect, normal mood - Skin Skin exam: Present: warm, dry, intact, normal color. Absent: rash ED Course Vital Signs 12/22/19 12/22/19 11:53 14:43 Temperature 97.9 F 97.3 F L Pulse Rate 68 57 L Respiratory 16 16 Rate Blood Pressure 175/115 175/97 O2 Sat by Pulse 96 99 Oximetry SPIKE score - Spike Score Age > 65: (0) No Aspirin use within the Past 7 Days: (0) No 3 or more CAD Risk Factors: (0) No 2 or more Angina events in past 24 hrs: (1) Yes Known CAD with more than 50% Stenosis: (0) No Elevated Cardiac Markers: (0) No ST Deviation Greater than 0.5mm: (0) No SPIKE Score: 1 ED Medical Decision Making - Lab Data Result diagrams: 12/22/19 12:00 12/22/19 12:00 Lab Results 12/22/19 12/22/19 Range/Units 12:00 12:00 WBC 8.1 (4.5-11.0) K/mm3 RBC 4.35 (3.65-5.03) M/mm3 Hgb 14.2 (10.1-14.3) gm/dl Hct 40.9 (30.3-42.9) % MCV 94 (79-97) fl MCH 33 H (28-32) pg MCHC 35 H (30-34) % RDW 12.9 L (13.2-15.2) % Plt Count 365 (140-440) K/mm3 Lymph % (Auto) 22.6 (13.4-35.0) % [place] % (Auto) 7.6 H (0.0-7.3) % Eos % (Auto) 1.9 (0.0-4.3) % Baso % (Auto) 1.1 (0.0-1.8) % Lymph # 1.8 (1.2-5.4) K/mm3 [place] # 0.6 (0.0-0.8) K/mm3 Eos # 0.2 (0.0-0.4) K/mm3 Baso # 0.1 (0.0-0.1) K/mm3 Seg Neutrophils % 66.8 (40.0-70.0) % Seg Neutrophils # 5.4 (1.8-7.7) K/mm3 Sodium 140 (137-145) mmol/L Potassium 3.8 (3.6-5.0) mmol/L Chloride 103.9 (98-107) mmol/L Carbon Dioxide 23 (22-30) mmol/L Anion Gap 17 mmol/L BUN 13 (7-17) mg/dL Creatinine 0.8 (0.7-1.2) mg/dL Estimated GFR > 60 ml/min BUN/Creatinine Ratio 16 % Glucose 86 (65-100) mg/dL Calcium 9.0 (8.4-10.2) mg/dL Total Bilirubin 0.20 (0.1-1.2) mg/dL AST 18 (5-40) units/L ALT 33 (7-56) units/L Alkaline Phosphatase 81 (35-129) units/L Troponin T < 0.010 (0.00-0.029) ng/mL Total Protein 6.5 (6.3-8.2) g/dL Albumin 4.1 (3.9-5) g/dL Albumin/Globulin Ratio 1.7 % - Radiology Data Radiology results: report reviewed CHEST 2 VIEWS INDICATION / CLINICAL INFORMATION: Chest pain. COMPARISON: 03/08/2019. FINDINGS: SUPPORT DEVICES: None. HEART / MEDIASTINUM: The heart size and pulmonary vasculature are normal. The aorta is normal in caliber. LUNGS / PLEURA: No significant pulmonary or pleural abnormality. No pneumothorax. ADDITIONAL FINDINGS: No significant additional findings. IMPRESSION: No acute abnormality or significant change. - Medical Decision Making 44 y.o. female that presents with right sided chest pain for 1 week. Denies drug use, asthma, SOB, palpations, fever, or dyspnea. Past medical history of hypertension, GERD, and headaches. Blood pressure is elevated. Obtained CMP, CBC, troponin, EKG, and chest xray. EKG interpreted by attending sinus bradycardia and no overt evidence of STEMI. All labs unremarkable for emergent chest pain. Reproducible pain along right costochondral joint. Chest x-ray negative for acute cardiopulmonary findings. Heart score 1. Patient had a normal stress test, echocardiogram, and normal CT of chest last year. Denies cardiology follow-up. Due to work-up and exam there is low suspicion for acute coronary syndrome, pulmonary embolus, pneumothorax, or aortic dissection, or other emergent problems. Patient's pain was controlled prior to discharge and well appearing. Physical assessment findings of tenderness along right costocondral junction. Start ibuprofen. Referrals given for cardiology as needed. Discharged home stable. Follow up with PCP in 24-48 hours. Given strict return instructions. Critical care attestation.: If time is entered above; I have spent that time in minutes in the direct care of this critically ill patient, excluding procedure time. ED Disposition Clinical Impression: Acute costochondritis Chest pain Qualifiers: Chest pain type: intercostal pain Qualified Code(s): R07.82 - Intercostal pain Hypertension Qualifiers: Hypertension type: essential hypertension Qualified Code(s): I10 - Essential (primary) hypertension Disposition: TO HOME OR SELFCARE Is pt being admited?: No Condition: Stable Instructions: Chest Pain (ED), Costochondritis (ED), Hypertension (ED) Additional Instructions: Take ibuprofen as needed for pain control. Follow up with primary care provider in 24-72 hours. Return to ER if chest pain unresolved, shortness of breath, or difficulty breath ing. Prescriptions: Ibuprofen [Motrin 800 MG tab] 800 mg PO Q8HR PRN #20 tablet PRN Reason: Pain , Severe (7-10) Amlodipine Besylate [Norvasc] 5 mg PO QDAY #30 tablet Referrals: SALINA TIM MD [Staff Physician] - 3-5 Days [facility] [Provider Group] - 3-5 Days KIMBERLY MEYERS MD [Referring] - 3-5 Days [facility] [Provider Group] - 3-5 Days Forms: Work/School Release Form(ED) Time of Disposition: 15:13
[2019-12-22 14:45] VITALS: BP 175/97
== END 2019-12-22 15:29 | disposition home or self-care (01) ==
LOC: ED 11:21
DX: M94.0 Chondrocostal junction syndrome [Tietze] (principal); I10 Essential (primary) hypertension; K21.9 Gastro-esophageal reflux disease without esophagitis; G43.909 Migraine, unspecified, not intractable, without status migrainosus; Z98.51 Tubal ligation status; Z90.710 Acquired absence of both cervix and uterus; Z90.49 Acquired absence of other specified parts of digestive tract; Z79.899 Other long term (current) drug therapy
CPT/HCPCS: 36415; 71046; 80053; 84484; 85025; 93005; 93010

== ENCOUNTER 2020-01-26 10:46 | Emergency (ER) | payer OTHER, MEDICARE ==
--- NOTE | 2020-01-26 11:53 | Emergency Department Report ---
Blank Doc - Documentation Documentation: 44-year-old female that presents with migrane headaches and URI symptoms. Pos itive sick contact with daughter, This initial assessment/diagnostic orders/clinical plan/treatment(s) is/are subject to change based on patient's health status, clinical progression and re-assessment by fellow clinical providers in the ED. Further treatment and workup at subsequent clinical providers discretion. Patient/guardians urged not to elope from the ED as their condition may be serious if not clinically assessed and managed. Initial orders include: 1- Patient sent to [facility] for further evaluation and treatment 2- CXR
[2020-01-26 11:56] VITALS: BP 177/101
--- NOTE | 2020-01-26 12:30 | XRay Report ---
CHEST 2 VIEWS INDICATION / CLINICAL INFORMATION: cough. COMPARISON: 12/22/2019 FINDINGS: SUPPORT DEVICES: None. HEART / MEDIASTINUM: No significant abnormality. LUNGS / PLEURA: No significant pulmonary or pleural abnormality. No pneumothorax. ADDITIONAL FINDINGS: No significant additional findings. IMPRESSION: 1. No acute findings. Signer Name: Isai Mcdaniels MD Signed: 01/26/2020 12:26 PM Workstation Name: [id number]
--- NOTE | 2020-01-26 13:15 | Emergency Department Report ---
Minor Respiratory - HPI Chief Complaint: Upper Respiratory Infection Stated Complaint: COUGHING,MAGRAINE Time Seen by Provider: 01/26/20 11:52 Duration: 4 Days Minor Respiratory: Yes Rhinorrhea, Yes Able to Tolerate Fluids, Yes Ear Pain, Yes Sick Contacts (other family members but no official COVID dx), No Sore Throat, No Cough (productive with yellow sputum), No Hemoptysis, No Chest Pain, No Shortness of Breath, No Fever Other History: 44 year old female with PMHX of HTN, GERD, CHF and HPLD presents to ED c/o 3-4 day hx of productive cough with yellow sputum, mild intermittent wheezing, itching throat, body aches, ROSADO and rhinorrhea. She denies any fever or chills at home. She denies chest pain, SOB, GI or symptoms. She has been around other family members who have been sick with similar symptoms, one she states has "walking pneumonia" but no one with official dx of COVID or flu. Pt bp noted to be elevated at triage. She admits that she has not taken her BP meds today. Other than ROSADO she has no neuro symptoms. ED Review of Systems ROS: Stated complaint: COUGHING,MAGRAINE Other details as noted in HPI Constitutional: denies: chills, fever, weakness ENT: congestion, other (Rhinorrhea). denies: ear pain, throat pain Respiratory: cough, wheezing (mild intermittent). denies: shortness of breath, SOB with exertion, SOB at rest Cardiovascular: denies: chest pain, palpitations, dyspnea on exertion, edema, syncope, paroxysmal nocturnal dyspnea Gastrointestinal: denies: abdominal pain, nausea, vomiting, diarrhea Genitourinary: denies: urgency, dysuria, frequency, hematuria Neurological: headache. denies: weakness, numbness, paresthesias, confusion, abnormal gait Psychiatric: denies: anxiety, depression ED Past Medical Hx - Past Medical History Previous Medical History?: Yes Hx Hypertension: Yes Hx Congestive Heart Failure: No Hx Diabetes: No Hx GERD: Yes Hx Headaches / Migraines: Yes Hx Asthma: No Hx COPD: No Additional medical history: Gastric Ulcers - Surgical History Past Surgical History?: Yes Hx Cholecystectomy: Yes Additional Surgical History: C section X4. Hysterectomy. Tubal ligation. - Social History Smoking Status: Never Smoker Substance Use Type: None - Medications Home Medications: Home Medications Medication Instructions Recorded Confirmed Last Taken Type Dicyclomine [Bentyl] 10 mg PO QID PRN #20 capsule 11/09/18 03/08/19 1 Month Ago Rx ~02/06/19 Cyclobenzaprine [Flexeril 10 MG 10 mg PO TID #20 tablet 02/17/19 03/08/19 Rx TAB] ALBUTEROL NEB's [Proventil 0.083% 2.5 mg IH Q4H PRN #1 nebu 03/10/19 Unknown Rx NEBS] Acetaminophen [Acetaminophen TAB] 650 mg PO Q4H PRN tablet 03/10/19 Unknown Rx AtorvaSTATin [Lipitor] 40 mg PO QHS #30 tablet 03/10/19 Unknown Rx Butalb/Acetamin/Caff 50-325-40 1 tab PO Q8HR PRN #10 tablet 03/10/19 Unknown Rx [Fioricet 50-325-40] Famotidine [Pepcid] 20 mg PO BID #30 tablet 03/10/19 Unknown Rx Omeprazole 20 mg PO DAILY #30 tablet. 03/10/19 Unknown Rx Ondansetron [Zofran ODT TAB] 4 mg PO Q8HR #10 tab.rapdis 03/10/19 Unknown Rx amLODIPine 10 mg PO DAILY #30 tablet 03/10/19 Unknown Rx Ibuprofen [Motrin] 400 mg PO Q6H PRN #20 tablet 05/17/19 Unknown Rx methOCARBAMOL [Robaxin TAB] 500 mg PO BID PRN #14 tab 05/17/19 Unknown Rx Ciprofloxacin HCl [Ciprofloxacin 500 mg PO Q12HR #28 tab 05/25/19 Unknown Rx TAB] Hyoscyamine Subl [Levsin Sl] 0.125 mg SL Q4HR PRN #16 tablet 05/25/19 Unknown Rx metroNIDAZOLE [Flagyl] 500 mg PO ONCE #4 tab 05/25/19 Unknown Rx metroNIDAZOLE [Flagyl] 500 mg PO Q12HR #28 tab 05/25/19 Unknown Rx Chlorhexidine Gluconate [Hibiclens] 10 ml TP BID #240 liquid 09/20/19 Unknown Rx Silver Sulfadiazine [Silvadene] 1 gm TP BID #50 cream..g. 09/20/19 Unknown Rx cephALEXin [Keflex] 500 mg PO Q6HR #40 capsule 09/20/19 Unknown Rx Amlodipine Besylate [Norvasc] 5 mg PO QDAY #30 tablet 12/22/19 Unknown Rx Ibuprofen [Motrin 800 MG tab] 800 mg PO Q8HR PRN #20 tablet 12/22/19 Unknown Rx Acetaminophen/Codeine [Tylenol 1 tab PO Q6H PRN #12 tab 01/26/20 Unknown Rx /Codeine # 3 tab] Albuterol INH(or & Nicu Only) 2 puff IH QID PRN #1 inhalation 01/26/20 Unknown Rx [ProAir HFA Inhaler] Benzonatate [Tessalon Perles] 100 mg PO Q8HR #10 capsule 01/26/20 Unknown Rx Fexofenadine HCl [Maeve Allergy] 180 mg PO DAILY PRN #30 tablet 01/26/20 Unknown Rx Minor Respiratory Exam - Exam General: Vital signs noted. No distress. Alert and acting appropriately. HEENT: Yes Pharyngeal Erythema, Yes Moist Mucous Membranes, No Rhinorrhea, No Conjuctival Injection, No Frontal Tenderness, No Maxillary Tenderness Neck: Yes Adenopathy, Yes Supple Lungs: Yes Good Air Exchange, No Wheezes, No Ron[place], No Stridor, No Cough, No Labored Respirations, No Retractions, No Use of Accessory Muscles, No Other Abnormal Lung Sounds Heart: Yes Regular, Yes Murmur Abdomen: No Tenderness Skin: No Rash, No Edema Neurologic: Alert and oriented, no deficits. Musculoskeletal: Unremarkable. ED Course Vital Signs 01/26/20 11:54 Temperature 98.4 F Pulse Rate 63 Blood Pressure 177/101 O2 Sat by Pulse 97 Oximetry ED Medical Decision Making - Radiology Data Radiology results: report reviewed - Medical Decision Making Patient presented to the ER today complaining of generalized body aches, productive cough, intermittent mild wheezing, and rhinorrhea. She denies any fever at home and she is afebrile here. She states that she has been around other sick family members with similar symptoms 1 of which was diagnosed with walking pneumonia but no one officially diagnosed with COVID. Patient has no chest pain, or difficulty breathing. She has not had any recent travel. Patient blood pressure noted to be elevated at triage, and she did admit that she did not take her blood pressure medication today. Explained to patient that this could be contributing to the headache. Other than the headache she has no neurological symptoms, and on exam she is awake alert and oriented x3 and is neurologically intact. Patient is not in any acute pain or respiratory distress. She appears well, nontoxic, and well-hydrated. Patient currently is not in any acute pain no respiratory distress. She appears well, nontoxic, and appears hydrated. Chest x-ray shows nothing acute. Her current condition does not demonstrate any infectious process such as meningitis, severe pneumonia, retropharyngeal abscess, epiglottitis, sepsis or other bacterial infection or cardiac illness requiring any further testing, treatment, consultation or admission at this time. Recommend to patient that she still quarantine at home for 2 weeks. Recommend lots of fluids, rest, and take medications as prescribed. If she is concerned about COVID she can follow up her PCP or [facility] health department for outpatient testing. Patient expresses understanding of instructions, and agrees with plan. Critical care attestation.: If time is entered above; I have spent that time in minutes in the direct care of this critically ill patient, excluding procedure time. ED Disposition Clinical Impression: Viral URI with cough, Viral syndrome Disposition: TO HOME OR SELFCARE Is pt being admited?: No Does the pt Need Aspirin: No Condition: Stable Instructions: Upper Respiratory Infection (ED), Viral Syndrome (ED) Additional Instructions: Recommend lots of rest, fluids, and taking medications as prescribed. Recommend self quarantine at home for 2 weeks. Recommend that you take you blood pressure medication when you get home. Recommend follow up with your PCP or [facility] for COVID testing if you are very concerned that your symptoms could be related to COVID. Return to ED if your symptoms worsen and if you develop fever (100.5 or higher). Prescriptions: Fexofenadine HCl [Maeve Allergy] 180 mg PO DAILY PRN #30 tablet PRN Reason: Cough Albuterol INH(or & Nicu Only) [ProAir HFA Inhaler] 2 puff IH QID PRN #1 inhalation PRN Reason: Shortness Of Breath Benzonatate [Tessalon Perles] 100 mg PO Q8HR #10 capsule Acetaminophen/Codeine [Tylenol /Codeine # 3 tab] 1 tab PO Q6H PRN #12 tab PRN Reason: Pain , Severe (7-10) Referrals: PRIMARY CARE, [Primary Care Provider] - 3-5 Days Forms: Work/School Release Form(ED) Time of Disposition: 13:24
== END 2020-01-26 13:57 | disposition home or self-care (01) ==
LOC: ED 10:46
DX: B34.9 Viral infection, unspecified (principal); J06.9 Acute upper respiratory infection, unspecified; R05 Cough; I10 Essential (primary) hypertension; K21.9 Gastro-esophageal reflux disease without esophagitis; Z90.49 Acquired absence of other specified parts of digestive tract; Z90.710 Acquired absence of both cervix and uterus; Z98.51 Tubal ligation status; Z98.890 Other specified postprocedural states; Z79.899 Other long term (current) drug therapy
CPT/HCPCS: 71046

== ENCOUNTER 2020-10-06 13:58 | Emergency (ER) | payer SELFPAY ==
--- NOTE | 2020-10-06 14:50 | Event Note ---
ED Screening Note Date of service: 10/06/20 Time: 14:48 ED Screening Note: 44-year-old -[place] female presents to the emergency room for headache nausea and vomiting since yesterday. Patient does admit that she has been out of her blood pressure medicine for a while. Does admit to sounds and and lights bothering her eyes. She states her primary care provider is no longer practicing. She is going to call pharmacy to obtain her medications. This initial assessment/diagnostic orders/clinical plan/treatment(s) is/are subject to change based on patients health status, clinical progression and re- assessment by fellow clinical providers in the ED. Further treatment and workup at subsequent clinical providers discretion. Patient/guardian urged not to elope from the ED as their condition may be serious if not clinically assessed and managed. Initial orders include:
[2020-10-06] MEDS ORDERED: METOCLOPRAMIDE 10 MG/2 ML INJ IV ONE (14:51)
[2020-10-06] MEDS ORDERED: KETOROLAC 30 MG/1 ML INJ IV ONE (14:51)
[2020-10-06] MEDS ORDERED: diphenhydrAMINE 50 MG/ML VIAL IV ONE (14:51)
--- NOTE | 2020-10-06 15:03 | Emergency Department Report ---
ED Headache HPI - General Chief Complaint: Headache Stated Complaint: HEADACHE Time Seen by Provider: 10/06/20 14:52 Source: patient - History of Present Illness Initial Comments: 45-year-old -[place] Citizen female presents to the emergency room complaining of a headache with nausea vomiting yesterday. Patient reports that she has been out of her blood pressure medication for sometimes secondary to her primary care provider has close practice. She reports that she usually takes a caffeine pill that would help with her headache but has not taken anything. Patient admits to the noise in light bother her headache. She denies any dizziness chest pain shortness of breath worse headache of her life. Timing/Duration: constant Quality: moderate, achy Head Injury Location: global Recent Head Trauma: no recent headache/trauma Associated Symptoms: nausea/vomiting. denies: fatigue, facial pain, fever/chills, flushing, nasal congestion, numbness in legs/feet Allergies/Adverse Reactions: Allergies No Known Allergies Allergy (Verified 09/20/19 22:19) Home Medications: Ambulatory Orders Dicyclomine [Bentyl] 10 mg PO QID PRN #20 capsule 11/09/18 Cyclobenzaprine [Flexeril 10 MG TAB] 10 mg PO TID #20 tablet 02/17/19 ALBUTEROL NEB's [Proventil 0.083% NEBS] 2.5 mg IH Q4H PRN #1 nebu 03/10/19 Acetaminophen [Acetaminophen TAB] 650 mg PO Q4H PRN tablet 03/10/19 AtorvaSTATin [Lipitor] 40 mg PO QHS #30 tablet 03/10/19 Butalb/Acetamin/Caff 50-325-40 [Fioricet 50-325-40] 1 tab PO Q8HR PRN #10 tablet 03/10/19 Famotidine [Pepcid] 20 mg PO BID #30 tablet 03/10/19 Omeprazole 20 mg PO DAILY #30 tablet. 03/10/19 Ondansetron [Zofran ODT TAB] 4 mg PO Q8HR #10 tab.rapdis 03/10/19 amLODIPine 10 mg PO DAILY #30 tablet 03/10/19 Ibuprofen [Motrin] 400 mg PO Q6H PRN #20 tablet 05/17/19 methOCARBAMOL [Robaxin TAB] 500 mg PO BID PRN #14 tab 05/17/19 Ciprofloxacin HCl [Ciprofloxacin TAB] 500 mg PO Q12HR #28 tab 05/25/19 Hyoscyamine Subl [Levsin Sl] 0.125 mg SL Q4HR PRN #16 tablet 05/25/19 metroNIDAZOLE [Flagyl] 500 mg PO ONCE #4 tab 05/25/19 metroNIDAZOLE [Flagyl] 500 mg PO Q12HR #28 tab 05/25/19 Chlorhexidine Gluconate [Hibiclens] 10 ml TP BID #240 liquid 09/20/19 Silver Sulfadiazine [Silvadene] 1 gm TP BID #50 cream..g. 09/20/19 cephALEXin [Keflex] 500 mg PO Q6HR #40 capsule 09/20/19 Ibuprofen [Motrin 800 MG tab] 800 mg PO Q8HR PRN #20 tablet 12/22/19 Acetaminophen/Codeine [Tylenol /Codeine # 3 tab] 1 tab PO Q6H PRN #12 tab 01/26/20 Albuterol Mdi (or & Nicu Only) [ProAir HFA Inhaler] 2 puff IH QID PRN #1 inhalation 01/26/20 Benzonatate [Tessalon Perles] 100 mg PO Q8HR #10 capsule 01/26/20 Fexofenadine HCl [Maeve Allergy] 180 mg PO DAILY PRN #30 tablet 01/26/20 Amlodipine Besylate [Norvasc] 5 mg PO QDAY #30 tablet 10/06/20 Butalb/Acetaminophen/Caffeine [Fioricet 50-300-40 mg CAP] 1 cap PO Q8HR PRN #12 cap 10/06/20 ED Review of Systems ROS: Stated complaint: HEADACHE Other details as noted in HPI Comment: All other systems reviewed and negative ED Past Medical Hx - Past Medical History Previous Medical History?: Yes Hx Hypertension: Yes Hx Congestive Heart Failure: No Hx Diabetes: No Hx GERD: Yes Hx Headaches / Migraines: Yes Hx Asthma: No Hx COPD: No Additional medical history: Gastric Ulcers - Surgical History Past Surgical History?: Yes Hx Cholecystectomy: Yes Additional Surgical History: C section X4. Hysterectomy. Tubal ligation. - Social History Smoking Status: Never Smoker Substance Use Type: None - Medications Home Medications: Home Medications Medication Instructions Recorded Confirmed Last Taken Type Dicyclomine [Bentyl] 10 mg PO QID PRN #20 capsule 11/09/18 03/08/19 1 Month Ago Rx ~02/06/19 Cyclobenzaprine [Flexeril 10 MG 10 mg PO TID #20 tablet 02/17/19 03/08/19 03/08/19 Rx TAB] ALBUTEROL NEB's [Proventil 0.083% 2.5 mg IH Q4H PRN #1 nebu 03/10/19 Unknown Rx NEBS] Acetaminophen [Acetaminophen TAB] 650 mg PO Q4H PRN tablet 03/10/19 Unknown Rx AtorvaSTATin [Lipitor] 40 mg PO QHS #30 tablet 03/10/19 Unknown Rx Butalb/Acetamin/Caff 50-325-40 1 tab PO Q8HR PRN #10 tablet 03/10/19 Unknown Rx [Fioricet 50-325-40] Famotidine [Pepcid] 20 mg PO BID #30 tablet 03/10/19 Unknown Rx Omeprazole 20 mg PO DAILY #30 tablet. 03/10/19 Unknown Rx Ondansetron [Zofran ODT TAB] 4 mg PO Q8HR #10 tab.rapdis 03/10/19 Unknown Rx amLODIPine 10 mg PO DAILY #30 tablet 03/10/19 Unknown Rx Ibuprofen [Motrin] 400 mg PO Q6H PRN #20 tablet 05/17/19 Unknown Rx methOCARBAMOL [Robaxin TAB] 500 mg PO BID PRN #14 tab 05/17/19 Unknown Rx Ciprofloxacin HCl [Ciprofloxacin 500 mg PO Q12HR #28 tab 05/25/19 Unknown Rx TAB] Hyoscyamine Subl [Levsin Sl] 0.125 mg SL Q4HR PRN #16 tablet 05/25/19 Unknown Rx metroNIDAZOLE [Flagyl] 500 mg PO ONCE #4 tab 05/25/19 Unknown Rx metroNIDAZOLE [Flagyl] 500 mg PO Q12HR #28 tab 05/25/19 Unknown Rx Chlorhexidine Gluconate [Hibiclens] 10 ml TP BID #240 liquid 09/20/19 Unknown Rx Silver Sulfadiazine [Silvadene] 1 gm TP BID #50 cream..g. 09/20/19 Unknown Rx cephALEXin [Keflex] 500 mg PO Q6HR #40 capsule 09/20/19 Unknown Rx Ibuprofen [Motrin 800 MG tab] 800 mg PO Q8HR PRN #20 tablet 12/22/19 Unknown Rx Acetaminophen/Codeine [Tylenol 1 tab PO Q6H PRN #12 tab 01/26/20 Unknown Rx /Codeine # 3 tab] Albuterol Mdi (or & Nicu Only) 2 puff IH QID PRN #1 inhalation 01/26/20 Unknown Rx [ProAir HFA Inhaler] Benzonatate [Tessalon Perles] 100 mg PO Q8HR #10 capsule 01/26/20 Unknown Rx Fexofenadine HCl [Maeve Allergy] 180 mg PO DAILY PRN #30 tablet 01/26/20 Unknown Rx Amlodipine Besylate [Norvasc] 5 mg PO QDAY #30 tablet 10/06/20 Unknown Rx Butalb/Acetaminophen/Caffeine 1 cap PO Q8HR PRN #12 cap 10/06/20 Unknown Rx [Fioricet 50-300-40 mg CAP] ED Physical Exam - General Limitations: No Limitations General appearance: alert, in no apparent distress - Head Head exam: Present: atraumatic, normocephalic - Eye Eye exam: Present: normal appearance - ENT ENT exam: Present: mucous membranes moist - Neck Neck exam: Present: normal inspection, full ROM - Respiratory Respiratory exam: Present: accessory muscle use - Back Exam Back exam: Present: full ROM - Neurological Exam Neurological exam: Present: alert, oriented X3, normal gait - Expanded Neurological Exam Expanded Cerebellar function: Finger to Nose: Normal, Heel to Garcia: Normal, Romberg: Normal Upper motor neuron: Stuart Neglect: Normal, Pronator Drift: Normal, Sensory Extin ction: Normal Sensory exam: Upper Extremity Light Touch: Normal, Upper Extremity Pin Prick: Normal, Upper Extremity Temperature: Normal, UE 2 Point Discrimination: Normal, Lower Extremity Light Touch: Normal, Lower Extremity Pin Prick: Normal, Lower Extremity Temperature: Normal, LE 2 Point Discrimination: Normal Motor strength exam: RUE: 4, LUE: 4, RLE: 4, LLE: 4 Best Eye Response (Leland): (4) open spontaneously Best Motor Response (Lynn): (6) obeys commands Best Verbal Response (Lynn): (5) oriented Lynn Total: 15 - Psychiatric Psychiatric exam: Present: normal affect, normal mood - Skin Skin exam: Present: warm, dry, intact, normal color. Absent: rash ED Course Vital Signs 10/06/20 10/06/20 10/07/20 14:36 17:11 01:50 Temperature 98.2 F 97.5 F L Pulse Rate 78 74 Respiratory 18 18 17 Rate Blood Pressure 165/105 Blood Pressure 164/99 [Right] O2 Sat by Pulse 97 97 Oximetry ED Medical Decision Making - Medical Decision Making 45-year-old -[place] Citizen female presents to the emergency room complaining of a headache with nausea vomiting yesterday. Patient reports that she has been out of her blood pressure medication for sometimes secondary to her primary care provider has close practice. She reports that she usually takes a caffeine pill that would help with her headache but has not taken anything. Patient admits to the noise in light bother her headache. She denies any dizziness chest pain shortness of breath worse headache of her life. Patient was given Reglan, Toradol and Benadryl for headache which she reports has improved. Patient be discharged home on Fioricet and amlodipine and refer ral to follow-up with her primary care provider. Critical care attestation.: If time is entered above; I have spent that time in minutes in the direct care of this critically ill patient, excluding procedure time. ED Disposition Clinical Impression: Hypertension, Headache Disposition: DC-01 TO HOME OR SELFCARE Is pt being admited?: No Does the pt Need Aspirin: No Condition: Stable Instructions: Managing Your Hypertension, Hypertension (ED) Prescriptions: Butalb/Acetaminophen/Caffeine [Fioricet 50-300-40 mg CAP] 1 cap PO Q8HR PRN #12 cap PRN Reason: Headache Amlodipine Besylate [Norvasc] 5 mg PO QDAY #30 tablet Referrals: PRIMARY CARE, [Primary Care Provider] - 3-5 Days Forms: Work/School Release Form(ED)
[2020-10-06] MEDS ORDERED: KETOROLAC 30 MG/1 ML INJ ONE (17:03)
[2020-10-06] MEDS ORDERED: METOCLOPRAMIDE 10 MG/2 ML INJ ONE (17:03)
[2020-10-06] MEDS ORDERED: diphenhydrAMINE 50 MG/ML VIAL ONE (17:04)
[2020-10-07 03:46] VITALS: BP 164/99
== END 2020-10-07 01:50 | disposition home or self-care (01) ==
LOC: ED 13:58
DX: I10 Essential (primary) hypertension (principal); K21.9 Gastro-esophageal reflux disease without esophagitis; G43.909 Migraine, unspecified, not intractable, without status migrainosus; Z90.49 Acquired absence of other specified parts of digestive tract; Z98.890 Other specified postprocedural states; Z79.899 Other long term (current) drug therapy
CPT/HCPCS: 96374; 96375; 99282; J1200; J1885; J2765

== ENCOUNTER 2020-12-27 09:45 | Emergency (ER) | payer SELFPAY ==
[2020-12-27] MEDS ORDERED: KETOROLAC 60 MG/2 ML INJ IM ONE (10:26)
[2020-12-27] MEDS ORDERED: predniSONE 20 MG TAB PO ONE (10:26)
[2020-12-27 10:41] VITALS: BP 187/104
--- NOTE | 2020-12-27 10:42 | Emergency Department Report ---
ED Neck Pain/Injury HPI - General Chief Complaint: Neck Pain/Injury Stated Complaint: NECK PAIN Time Seen by Provider: 12/27/20 10:25 Source: patient, RN notes reviewed Mode of arrival: Ambulatory Limitations: No Limitations - History of Present Illness Initial Comments: This is a 45-year-old female nontoxic, well nourished in appearance, no acute signs of distress presents to the ED with c/o of right upper back/neck pain times several days. Patient stated that the past few days she was moving and developed this pain. Patient denies any radiation of pain. Patient denies any trauma. Denies any bladder or bowel instability. Patient denies any urinary symptoms. Denies any fever, chills, nausea, vomiting, headache, stiff neck, chest pain or shortness of breath. Pain worse with movement and resolves with rest. Patient denies any numbness or tingling. Denies any allergies. Patient stated has past medical history of hypertension which she takes Norvasc and takes daily MD Complaint: upper back pain -: days(s) Place: home Severity: mild Severity scale (0 -10): 3 Quality: aching Consistency: intermittent Improves With: immobilization, rest supine Worsens With: movement of neck Associated Symptoms: none. denies: headache, fever, numbness, tingling, weakness, vertigo, difficulty walking, swollen glands, difficulty swallowing, nausea, vomiting - Related Data Previous Rx's Medication Instructions Recorded Last Taken Type Dicyclomine [Bentyl] 10 mg PO QID PRN #20 capsule 11/09/18 1 Month Ago Rx ~02/06/19 Cyclobenzaprine [Flexeril 10 MG 10 mg PO TID #20 tablet 02/17/19 03/08/19 Rx TAB] ALBUTEROL NEB's [Proventil 0.083% 2.5 mg IH Q4H PRN #1 nebu 03/10/19 Unknown Rx NEBS] Acetaminophen [Acetaminophen TAB] 650 mg PO Q4H PRN tablet 03/10/19 Unknown Rx AtorvaSTATin [Lipitor] 40 mg PO QHS #30 tablet 03/10/19 Unknown Rx Butalb/Acetamin/Caff 50-325-40 1 tab PO Q8HR PRN #10 tablet 03/10/19 Unknown Rx [Fioricet 50-325-40] Famotidine [Pepcid] 20 mg PO BID #30 tablet 03/10/19 Unknown Rx Omeprazole 20 mg PO DAILY #30 tablet. 03/10/19 Unknown Rx Ondansetron [Zofran ODT TAB] 4 mg PO Q8HR #10 tab.rapdis 03/10/19 Unknown Rx amLODIPine 10 mg PO DAILY #30 tablet 03/10/19 Unknown Rx Ibuprofen [Motrin] 400 mg PO Q6H PRN #20 tablet 05/17/19 Unknown Rx methOCARBAMOL [Robaxin TAB] 500 mg PO BID PRN #14 tab 05/17/19 Unknown Rx Ciprofloxacin HCl [Ciprofloxacin 500 mg PO Q12HR #28 tab 05/25/19 Unknown Rx TAB] Hyoscyamine Subl [Levsin Sl] 0.125 mg SL Q4HR PRN #16 tablet 05/25/19 Unknown Rx metroNIDAZOLE [Flagyl] 500 mg PO ONCE #4 tab 05/25/19 Unknown Rx metroNIDAZOLE [Flagyl] 500 mg PO Q12HR #28 tab 05/25/19 Unknown Rx Chlorhexidine Gluconate [Hibiclens] 10 ml TP BID #240 liquid 09/20/19 Unknown Rx Silver Sulfadiazine [Silvadene] 1 gm TP BID #50 cream..g. 09/20/19 Unknown Rx cephALEXin [Keflex] 500 mg PO Q6HR #40 capsule 09/20/19 Unknown Rx Ibuprofen [Motrin 800 MG tab] 800 mg PO Q8HR PRN #20 tablet 12/22/19 Unknown Rx Acetaminophen/Codeine [Tylenol 1 tab PO Q6H PRN #12 tab 01/26/20 Unknown Rx /Codeine # 3 tab] Albuterol Mdi (or & Nicu Only) 2 puff IH QID PRN #1 inhalation 01/26/20 Unknown Rx [ProAir HFA Inhaler] Benzonatate [Tessalon Perles] 100 mg PO Q8HR #10 capsule 01/26/20 Unknown Rx Fexofenadine HCl [Maeve Allergy] 180 mg PO DAILY PRN #30 tablet 01/26/20 Unknown Rx Amlodipine Besylate [Norvasc] 5 mg PO QDAY #30 tablet 10/06/20 Unknown Rx Butalb/Acetaminophen/Caffeine 1 cap PO Q8HR PRN #12 cap 10/06/20 Unknown Rx [Fioricet 50-300-40 mg CAP] Cyclobenzaprine HCl [Flexeril 5 MG 10 mg PO QHS PRN #10 tab 12/27/20 Unknown Rx TAB] Naproxen 500 mg PO Q12H PRN #12 tablet 12/27/20 Unknown Rx Allergies Allergy/AdvReac Type Severity Reaction Status Date / Time No Known Allergies Allergy Verified 09/20/19 22:19 ED Review of Systems ROS: Stated complaint: NECK PAIN Other details as noted in HPI Constitutional: denies: chills, fever Eyes: denies: eye pain, eye discharge, vision change ENT: denies: ear pain, throat pain Respiratory: denies: cough, shortness of breath, wheezing Cardiovascular: denies: chest pain, palpitations Endocrine: no symptoms reported Gastrointestinal: denies: abdominal pain, nausea, diarrhea Genitourinary: denies: urgency, dysuria, discharge Musculoskeletal: denies: back pain, joint swelling, arthralgia Skin: denies: rash, lesions Neurological: denies: headache, weakness, paresthesias Psychiatric: denies: anxiety, depression Hematological/Lymphatic: denies: easy bleeding, easy bruising ED Past Medical Hx - Past Medical History Previous Medical History?: Yes Hx Hypertension: Yes Hx Congestive Heart Failure: No Hx Diabetes: No Hx GERD: Yes Hx Headaches / Migraines: Yes Hx Asthma: No Hx COPD: No Additional medical history: Gastric Ulcers - Surgical History Past Surgical History?: Yes Hx Cholecystectomy: Yes Additional Surgical History: C section X4. Hysterectomy. Tubal ligation. - Social History Smoking Status: Never Smoker Substance Use Type: None - Medications Home Medications: Home Medications Medication Instructions Recorded Confirmed Last Taken Type Dicyclomine [Bentyl] 10 mg PO QID PRN #20 capsule 11/09/18 03/08/19 1 Month Ago Rx ~02/06/19 Cyclobenzaprine [Flexeril 10 MG 10 mg PO TID #20 tablet 02/17/19 03/08/19 03/08/19 Rx TAB] ALBUTEROL NEB's [Proventil 0.083% 2.5 mg IH Q4H PRN #1 nebu 03/10/19 Unknown Rx NEBS] Acetaminophen [Acetaminophen TAB] 650 mg PO Q4H PRN tablet 03/10/19 Unknown Rx AtorvaSTATin [Lipitor] 40 mg PO QHS #30 tablet 03/10/19 Unknown Rx Butalb/Acetamin/Caff 50-325-40 1 tab PO Q8HR PRN #10 tablet 03/10/19 Unknown Rx [Fioricet 50-325-40] Famotidine [Pepcid] 20 mg PO BID #30 tablet 03/10/19 Unknown Rx Omeprazole 20 mg PO DAILY #30 tablet. 03/10/19 Unknown Rx Ondansetron [Zofran ODT TAB] 4 mg PO Q8HR #10 tab.rapdis 03/10/19 Unknown Rx amLODIPine 10 mg PO DAILY #30 tablet 03/10/19 Unknown Rx Ibuprofen [Motrin] 400 mg PO Q6H PRN #20 tablet 05/17/19 Unknown Rx methOCARBAMOL [Robaxin TAB] 500 mg PO BID PRN #14 tab 05/17/19 Unknown Rx Ciprofloxacin HCl [Ciprofloxacin 500 mg PO Q12HR #28 tab 05/25/19 Unknown Rx TAB] Hyoscyamine Subl [Levsin Sl] 0.125 mg SL Q4HR PRN #16 tablet 05/25/19 Unknown Rx metroNIDAZOLE [Flagyl] 500 mg PO ONCE #4 tab 05/25/19 Unknown Rx metroNIDAZOLE [Flagyl] 500 mg PO Q12HR #28 tab 05/25/19 Unknown Rx Chlorhexidine Gluconate [Hibiclens] 10 ml TP BID #240 liquid 09/20/19 Unknown Rx Silver Sulfadiazine [Silvadene] 1 gm TP BID #50 cream..g. 09/20/19 Unknown Rx cephALEXin [Keflex] 500 mg PO Q6HR #40 capsule 09/20/19 Unknown Rx Ibuprofen [Motrin 800 MG tab] 800 mg PO Q8HR PRN #20 tablet 12/22/19 Unknown Rx Acetaminophen/Codeine [Tylenol 1 tab PO Q6H PRN #12 tab 01/26/20 Unknown Rx /Codeine # 3 tab] Albuterol Mdi (or & Nicu Only) 2 puff IH QID PRN #1 inhalation 01/26/20 Unknown Rx [ProAir HFA Inhaler] Benzonatate [Tessalon Perles] 100 mg PO Q8HR #10 capsule 01/26/20 Unknown Rx Fexofenadine HCl [Maeve Allergy] 180 mg PO DAILY PRN #30 tablet 01/26/20 Unknown Rx Amlodipine Besylate [Norvasc] 5 mg PO QDAY #30 tablet 10/06/20 Unknown Rx Butalb/Acetaminophen/Caffeine 1 cap PO Q8HR PRN #12 cap 10/06/20 Unknown Rx [Fioricet 50-300-40 mg CAP] Cyclobenzaprine HCl [Flexeril 5 MG 10 mg PO QHS PRN #10 tab 12/27/20 Unknown Rx TAB] Naproxen 500 mg PO Q12H PRN #12 tablet 12/27/20 Unknown Rx ED Physical Exam - General Limitations: No Limitations General appearance: alert, in no apparent distress - Head Head exam: Present: atraumatic, normocephalic - Eye Eye exam: Present: normal appearance - Neck Neck exam: Present: normal inspection, full ROM. Absent: tenderness, meningismus, lymphadenopathy - Respiratory Respiratory exam: Absent: respiratory distress - Cardiovascular Cardiovascular Exam: Present: regular rate - Extremities Exam Extremities exam: Present: normal inspection, full ROM, normal capillary refill. Absent: tenderness - Back Exam Back exam: Present: normal inspection, full ROM, paraspinal tenderness (right cervical paraspinal area). Absent: tenderness, CVA tenderness (R), CVA tenderness (L), muscle spasm, vertebral tenderness, rash noted - Neurological Exam Neurological exam: Present: alert, oriented X3, normal gait - Psychiatric Psychiatric exam: Present: normal affect, normal mood - Skin Skin exam: Present: warm, dry, intact, normal color. Absent: rash ED Course Vital Signs 12/27/20 12/27/20 10:23 11:22 Temperature 98.2 F Pulse Rate 69 Respiratory 20 18 Rate Blood Pressure 187/104 O2 Sat by Pulse 99 Oximetry Vital Signs 12/27/20 10:23 Temperature 98.2 F Pulse Rate 69 Respiratory 20 Rate Blood Pressure 187/104 O2 Sat by Pulse 99 Oximetry - Reevaluation(s) Reevaluation #1: 12/27/20 10:41 Patient is speaking in full sentences with no signs of distress noted. ED Medical Decision Making - Medical Decision Making This is a 45-year-old female that presents with cervical muscle strain. Patient is stable was examined by me. There is no spinal tenderness. Patient received Toradol 60 mg IM and prednisone in the ED which stated that her symptoms has resolved and subsided. Patient is discharged with muscle relaxant and Motrin. Patient was instructed not to operate any machinery while taking muscle relaxant as they cause her drowsiness. Patient was referred to Follow-up with a primary care doctor in 3-5 days or if symptoms worsen and continue return to emergency room as soon as possible. At time of discharge, the patient does not seem toxic or ill in appearance. No acute signs of distress noted. Patient agrees to discharge treatment plan of care. No further questions noted by the patient. Patient is compliant with her blood pressure medication. Patient stated follows up with her primary care doctor for her hypertension. According to ACEP: (1) in ED patients with asymptomatic markedly elevated blood pressure, routine screening for acute target organ injury (eg, serum creatinine, urinalysis, ECG) is not required. (1) In patients with asymptomatic markedly elevated blood pressure, routine ED medical intervention is not required. This chart is dictated with using [employer] Critical care attestation.: If time is entered above; I have spent that time in minutes in the direct care of this critically ill patient, excluding procedure time. ED Disposition Clinical Impression: Cervical muscle strain Qualifiers: Encounter type: initial encounter Qualified Code(s): S16.1XXA - Strain of muscle, fascia and tendon at neck level, initial encounter Disposition: - TO HOME OR SELFCARE Is pt being admited?: No Does the pt Need Aspirin: No Condition: Stable Instructions: Muscle Strain, [id number], Cyclobenzaprine tablets Additional Instructions: Follow-up with a primary care doctor in 3-5 days or if symptoms worsen and continue return to emergency room as soon as possible. Take Naproxen and Flexeril as prescribed. Do not operate heavy machinery while taking Flexeril due to sedation Prescriptions: Cyclobenzaprine HCl [Flexeril 5 MG TAB] 10 mg PO QHS PRN #10 tab PRN Reason: Muscle Spasm Naproxen 500 mg PO Q12H PRN #12 tablet PRN Reason: Pain , Severe (7-10) Referrals: PRIMARY CAREMD [Referring] - 3-5 Days MOHINDER MINOR MD [Staff Physician] - 3-5 Days Forms: Work/School Release Form(ED) Time of Disposition: 12:00
== END 2020-12-27 12:50 | disposition home or self-care (01) ==
LOC: ED 09:45
DX: S16.1XXA Strain of muscle, fascia and tendon at neck level, initial encounter (principal); I10 Essential (primary) hypertension; K21.9 Gastro-esophageal reflux disease without esophagitis; G43.909 Migraine, unspecified, not intractable, without status migrainosus; Z90.49 Acquired absence of other specified parts of digestive tract; Z79.899 Other long term (current) drug therapy; Z90.710 Acquired absence of both cervix and uterus; Z98.51 Tubal ligation status; X58.XXXA Exposure to other specified factors, initial encounter; Y93.89 Activity, other specified; Y92.009 Unspecified place in unspecified non-institutional (private) residence as the place of occurrence of the external cause; Y99.8 Other external cause status
CPT/HCPCS: 96372; 99282; J1885; J7512

== ENCOUNTER 2021-02-28 08:04 | Emergency (ER) | payer OTHER ==
[2021-02-28] MEDS ORDERED: LIDOCAINE (1%) 10 MG/1 ML VIAL 20 ML MDV INFILTRATI ONE (09:26)
--- NOTE | 2021-02-28 09:27 | Emergency Department Report ---
ED General Adult HPI - General Chief complaint: Urogenital-Female Stated complaint: ABD PAIN/LUMP ON BREAST Time Seen by Provider: 02/28/21 08:58 Source: EMS Mode of arrival: Ambulatory Limitations: No Limitations - History of Present Illness Initial comments: 45-year-old female with a past medical history of hypertension and hyperlipidemia presents to the ER today with 2 complaints. Patient complains of a lump to her right breast. Onset 1 week ago. Painful and increasing in size. She reports some mild drainage from it but not getting any better. She reports similar several years ago. She denies any history of MRSA. She denies any fever or chills. Patient also complains of epigastric pain abdominal pain. She states that she has been having this abdominal pain on and off for the past 3 months. She states that she was seen by GI specialist and had endoscopy and a colonoscopy and was told her pain was related to "ulcers". Patient states that the pain seems to be worse with certain foods that she eats or with certain things that she drinks. She describes as a sharp, dull, crampy pain. She states that the medications that she was prescribed does not help. She states that the pain woke up out of her sleep this morning causing spasms to radiate diffusely throughout her body and so wanted to get it checked out. She denies any nausea or vomiting. She denies any diarrhea or bloody stools. She denies any UTI symptoms. She is status post partial hysterectomy and cholecystectomy. MD Complaint: Lump right breast/abdominal pain - Related Data Previous Rx's Medication Instructions Recorded Last Taken Type AtorvaSTATin [Lipitor] 40 mg PO QHS #30 tablet 03/10/19 Unknown Rx Omeprazole 20 mg PO DAILY #30 tablet. 03/10/19 Unknown Rx amLODIPine 10 mg PO DAILY #30 tablet 03/10/19 Unknown Rx Albuterol Mdi (or & Nicu Only) 2 puff IH QID PRN #1 inhalation 01/26/20 Unknown Rx [ProAir HFA Inhaler] Amlodipine Besylate [Norvasc] 5 mg PO QDAY #30 tablet 10/06/20 Unknown Rx Esomeprazole Magnesium [NexIUM] 40 mg PO QDAY #30 capsule. 02/28/21 Unknown Rx Famotidine [Pepcid] 20 mg PO BID #30 tablet 02/28/21 Unknown Rx Sulfamethoxazole/Trimethoprim 1 each PO BID #14 tablet 02/28/21 Unknown Rx [Bactrim DS TAB] Allergies Allergy/AdvReac Type Severity Reaction Status Date / Time No Known Allergies Allergy Verified 09/20/19 22:19 ED Review of Systems ROS: Stated complaint: ABD PAIN/LUMP ON BREAST Other details as noted in HPI Comment: All other systems reviewed and negative Constitutional: denies: chills, fever Eyes: denies: eye pain, eye discharge, vision change ENT: denies: ear pain, throat pain Respiratory: denies: cough, shortness of breath, wheezing Cardiovascular: denies: chest pain, palpitations, dyspnea on exertion, syncope, paroxysmal nocturnal dyspnea Gastrointestinal: abdominal pain. denies: nausea, vomiting, diarrhea, hematemesis, melena, hematochezia Genitourinary: denies: urgency, dysuria, discharge Musculoskeletal: denies: back pain, joint swelling, arthralgia Skin: other (Lump right breast) Neurological: denies: headache, weakness, numbness, paresthesias, confusion, abnormal gait, vertigo Psychiatric: denies: anxiety, depression, auditory hallucinations, visual hallucinations, homicidal thoughts, suicidal thoughts Hematological/Lymphatic: denies: easy bleeding, easy bruising, swollen glands ED Past Medical Hx - Past Medical History Hx Hypertension: Yes Hx Congestive Heart Failure: No Hx Diabetes: No Hx GERD: Yes Hx Headaches / Migraines: Yes Hx Asthma: No Hx COPD: No Additional medical history: Gastric Ulcers - Surgical History Hx Cholecystectomy: Yes Additional Surgical History: C section X4. Hysterectomy. Tubal ligation. - Social History Smoking Status: Never Smoker Substance Use Type: None - Medications Home Medications: Home Medications Medication Instructions Recorded Confirmed Last Taken Type AtorvaSTATin [Lipitor] 40 mg PO QHS #30 tablet 03/10/19 Unknown Rx Omeprazole 20 mg PO DAILY #30 tablet. 03/10/19 Unknown Rx amLODIPine 10 mg PO DAILY #30 tablet 03/10/19 Unknown Rx Albuterol Mdi (or & Nicu Only) 2 puff IH QID PRN #1 inhalation 01/26/20 Unknown Rx [ProAir HFA Inhaler] Amlodipine Besylate [Norvasc] 5 mg PO QDAY #30 tablet 10/06/20 Unknown Rx Esomeprazole Magnesium [NexIUM] 40 mg PO QDAY #30 capsule. 02/28/21 Unknown Rx Famotidine [Pepcid] 20 mg PO BID #30 tablet 02/28/21 Unknown Rx Sulfamethoxazole/Trimethoprim 1 each PO BID #14 tablet 02/28/21 Unknown Rx [Bactrim DS TAB] ED Physical Exam - General Limitations: No Limitations General appearance: alert, in no apparent distress - Head Head exam: Present: atraumatic, normocephalic, normal inspection - Eye Eye exam: Present: normal appearance, PERRL, EOMI Pupils: Present: normal accommodation - ENT ENT exam: Present: normal exam, mucous membranes moist - Neck Neck exam: Present: normal inspection, full ROM - Respiratory Respiratory exam: Present: normal lung sounds bilaterally. Absent: respiratory distress, wheezes, rales, rhonchi - Cardiovascular Cardiovascular Exam: Present: regular rate, normal rhythm, normal heart sounds - GI/Abdominal GI/Abdominal exam: Present: soft, tenderness (Mild epigastric tenderness without guarding or rebound). Absent: distended, guarding, rebound - Neurological Exam Neurological exam: Present: alert, oriented X3, CN II-XII intact, normal gait - Psychiatric Psychiatric exam: Present: normal affect, normal mood - Skin Skin exam: Present: intact, other (~2cm x 2 cm mildly erythematous, indurated, fluctuant area noted mid right parasternal area; no streaking redness noted. ) ED Course Vital Signs 02/28/21 02/28/21 02/28/21 08:12 11:53 11:57 Temperature 98.3 F Pulse Rate 82 84 84 Respiratory 18 18 Rate Blood Pressure 177/112 198/109 Blood Pressure 198/109 [Right] O2 Sat by Pulse 96 98 Oximetry - I & D Right Anterior Chest Type of Procedure: Simple Site: Right mid parasternal area Blade Size: 11 I & D Procedure: betadine prep, sterile dressing applied Progress: Patient tolerated procedure well. No complications. ED Medical Decision Making - Lab Data Result diagrams: 02/28/21 09:49 02/28/21 09:49 - EKG Data -: EKG Interpreted by Me EKG shows normal: sinus rhythm Rate: normal (76) - EKG Data Interpretation: LVH - Medical Decision Making The patient is resting comfortably and feels better, is alert and in no distress. Repeat exam is unremarkable and benign; in particular, there is no discomfort at McBurney's point and there is no pulsatile mass. Her labs unremarkable. Her history, exam, and current condition do not suggest acute appendicitis, bowel obstruction, acute cholecystitis, bowel perforation, major GI bleed, severe diverticulitis, abdominal aortic aneurysm, mesenteric ischemia, volvulus, acute coronary syndrome or any other significant cardiopulmonary pathology sepsis or other significant pathology to warrant further testing, continued ED treatment, admission or surgical evaluation at this point. Her abscess was drained, see procedure note for detail. There is no associated cellulitis. Her blood pressure was elevated during stay but she admits that she did not take her blood pressure medication this morning. It did improve after p.o. clonidine (164/109 done by me). Informed patient of the importance of taking her blood pressure medication every single day and recommend that she takes it when she is at home. Her remaining vitals were stable. Discussed the lab results with patient. Suspect that her epigastric pain is related to her peptic ulcer disease/gastritis and recommend that she takes the Nexium and the Pepcid. She expressed understanding of instructions and agree with plan. The patient's condition is stable and appropriate for discharge from the emergency department. The patient will pursue further outpatient evaluation with the primary care physician. Critical care attestation.: If time is entered above; I have spent that time in minutes in the direct care of this critically ill patient, excluding procedure time. ED Disposition Clinical Impression: Abscess of chest wall, Epigastric pain, PUD (peptic ulcer disease) Disposition: DC-01 TO HOME OR SELFCARE Is pt being admited?: No Does the pt Need Aspirin: No Condition: Stable Additional Instructions: Take the Bactrim as prescribed. Recommend that you take the Nexium and the Pepcid as prescribed. Recommend that you avoid any spicy, acidic, NSAIDs, alcohol or caffeinated foods as these can affect your peptic ulcer disease. Follow-up with primary care doctor listed on your discharge instructions. Return to the ER if your symptoms changes or worsens in any way. Prescriptions: Sulfamethoxazole/Trimethoprim [Bactrim DS TAB] 1 each PO BID #14 tablet Esomeprazole Magnesium [NexIUM] 40 mg PO QDAY #30 capsule. Famotidine [Pepcid] 20 mg PO BID #30 tablet Referrals: RADHA BONE JR, MD [Primary Care Provider] - 3-5 Days Forms: Work/School Release Form(ED) Time of Disposition: 13:25
[2021-02-28 10:10] LABS: Basophils # (Auto) 0.1 K/mm3 (0.0-0.1); Basophils % (Auto) 1.1 % (0.0-1.8); Eosinophils # (Auto) 0.1 K/mm3 (0.0-0.4); Hemoglobin 14.1 gm/dl (10.1-14.3); Lymphocytes # (Auto) 1.5 K/mm3 (1.2-5.4); Lymphocytes % (Auto) 15.5 % (13.4-35.0); Mean Corpuscular HGB Conc 35 % (30-34); Mean Corpuscular Volume 95 fl (79-97); Monocytes # (Auto) 0.8 K/mm3 (0.0-0.8); Platelet Count 352 K/mm3 (140-440); Red Blood Count 4.33 M/mm3 (3.65-5.03); Red Cell Distribution Width 13.4 % (13.2-15.2)
[2021-02-28 10:34] LABS: Alanine Aminotransferase 21 units/L (7-56); BUN/Creatinine Ratio 14; Blood Urea Nitrogen 13 mg/dL (7-17); Calcium 9.1 mg/dL (8.4-10.2); Hemolysis Index 12
[2021-02-28 10:58] LABS: Bilirubin,Urine NEG (Negative); Blood,Urine SM (Negative); Color,Urine Yellow (Yellow); Protein,Urine <15 mg/dL mg/dL (Negative); Urobilinogen,Urine < 2.0 mg/dL (<2.0)
[2021-02-28] MEDS ORDERED: cloNIDine 0.2 MG TAB ONE (11:53)
[2021-02-28] MEDS ORDERED: cloNIDine 0.2 MG TAB PO ONE (11:54)
[2021-02-28 11:57] VITALS: BP 198/109
--- NOTE | 2021-03-03 10:32 | Electrocardiograph Report ---
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
== END 2021-02-28 13:35 | disposition home or self-care (01) ==
LOC: ED 08:04
DX: K27.9 Peptic ulcer, site unspecified, unspecified as acute or chronic, without hemorrhage or perforation (principal); L02.213 Cutaneous abscess of chest wall; R10.13 Epigastric pain; I10 Essential (primary) hypertension; K21.9 Gastro-esophageal reflux disease without esophagitis; G43.909 Migraine, unspecified, not intractable, without status migrainosus; Z90.49 Acquired absence of other specified parts of digestive tract; Z90.710 Acquired absence of both cervix and uterus; Z98.51 Tubal ligation status; Z79.899 Other long term (current) drug therapy
CPT/HCPCS: 36415; 80053; 81001; 83690; 84484; 84703; 85025; 87116; 93005

== ENCOUNTER 2021-05-03 19:03 | Emergency (ER) | payer SELFPAY | END 2021-05-03 19:45 | disposition left against medical advice (07) | LOC: ED 19:03 ==

== ENCOUNTER 2021-10-21 11:31 | Emergency (ER) | payer OTHER ==
--- NOTE | 2021-10-21 13:27 | Emergency Department Report ---
- General Chief complaint: Skin/Abscess/Foreign Body Stated complaint: RASH Time Seen by Provider: 10/21/21 13:17 Source: patient Mode of arrival: Ambulatory Limitations: No Limitations - History of Present Illness Initial comments: Patient is a 46-year-old female presents emergency room complaints of a lump present to the left axilla that began 2 days ago. She reports that it is painful. She states that she has had this in the past and they usually opened and drained on their own. She has never had to have an I&D. She denies any drainage, fever, vomiting. Past medical history of hypertension and states that she takes amlodipine 10 mg daily. She reports that when she saw her primary care doctor 3 months ago her blood pressure was elevated then also. No allergies to medications. - Related Data Previous Rx's Medication Instructions Recorded Last Taken Type AtorvaSTATin [Lipitor] 40 mg PO QHS #30 tablet 03/10/19 Unknown Rx Omeprazole 20 mg PO DAILY #30 tablet. 03/10/19 Unknown Rx amLODIPine 10 mg PO DAILY #30 tablet 03/10/19 Unknown Rx Albuterol Mdi (or & Nicu Only) 2 puff IH QID PRN #1 inhalation 01/26/20 Unknown Rx [ProAir HFA Inhaler] Amlodipine Besylate [Norvasc] 5 mg PO QDAY #30 tablet 10/06/20 Unknown Rx Esomeprazole Magnesium [NexIUM] 40 mg PO QDAY #30 capsule. 02/28/21 Unknown Rx Famotidine [Pepcid] 20 mg PO BID #30 tablet 02/28/21 Unknown Rx Sulfamethoxazole/Trimethoprim 1 each PO BID #14 tablet 02/28/21 Unknown Rx [Bactrim DS TAB] Sulfamethoxazole/Trimethoprim 1 each PO BID 7 Days #14 tablet 10/21/21 Unknown Rx [Bactrim DS TAB] traMADoL [Ultram 50 MG tab] 50 mg PO Q6HR PRN #10 tablet 10/21/21 Unknown Rx Allergies Allergy/AdvReac Type Severity Reaction Status Date / Time No Known Allergies Allergy Verified 10/21/21 11:45 Abscess Boil HPI - HPI Chief Complaint: Skin/Abscess/Foreign Body Stated Complaint: RASH Time Seen by Provider: 10/21/21 13:17 Home Medications: Previous Rx's Medication Instructions Recorded Last Taken Type AtorvaSTATin [Lipitor] 40 mg PO QHS #30 tablet 03/10/19 Unknown Rx Omeprazole 20 mg PO DAILY #30 tablet. 03/10/19 Unknown Rx amLODIPine 10 mg PO DAILY #30 tablet 03/10/19 Unknown Rx Albuterol Mdi (or & Nicu Only) 2 puff IH QID PRN #1 inhalation 01/26/20 Unknown Rx [ProAir HFA Inhaler] Amlodipine Besylate [Norvasc] 5 mg PO QDAY #30 tablet 10/06/20 Unknown Rx Esomeprazole Magnesium [NexIUM] 40 mg PO QDAY #30 capsule. 02/28/21 Unknown Rx Famotidine [Pepcid] 20 mg PO BID #30 tablet 02/28/21 Unknown Rx Sulfamethoxazole/Trimethoprim 1 each PO BID #14 tablet 02/28/21 Unknown Rx [Bactrim DS TAB] Sulfamethoxazole/Trimethoprim 1 each PO BID 7 Days #14 tablet 10/21/21 Unknown Rx [Bactrim DS TAB] traMADoL [Ultram 50 MG tab] 50 mg PO Q6HR PRN #10 tablet 10/21/21 Unknown Rx Allergies/Adverse Reactions: Allergies Allergy/AdvReac Type Severity Reaction Status Date / Time No Known Allergies Allergy Verified 10/21/21 11:45 ED Review of Systems ROS: Stated complaint: RASH Other details as noted in HPI Comment: All other systems reviewed and negative ED Past Medical Hx - Past Medical History Hx Hypertension: Yes Hx Congestive Heart Failure: No Hx Diabetes: No Hx GERD: Yes Hx Headaches / Migraines: Yes Hx Asthma: No Hx COPD: No Additional medical history: Gastric Ulcers - Surgical History Hx Cholecystectomy: Yes Additional Surgical History: C section X4. Hysterectomy. Tubal ligation. - Social History Smoking Status: Never Smoker Substance Use Type: None - Medications Home Medications: Home Medications Medication Instructions Recorded Confirmed Last Taken Type AtorvaSTATin [Lipitor] 40 mg PO QHS #30 tablet 03/10/19 Unknown Rx Omeprazole 20 mg PO DAILY #30 tablet. 03/10/19 Unknown Rx amLODIPine 10 mg PO DAILY #30 tablet 03/10/19 Unknown Rx Albuterol Mdi (or & Nicu Only) 2 puff IH QID PRN #1 inhalation 01/26/20 Unknown Rx [ProAir HFA Inhaler] Amlodipine Besylate [Norvasc] 5 mg PO QDAY #30 tablet 10/06/20 Unknown Rx Esomeprazole Magnesium [NexIUM] 40 mg PO QDAY #30 capsule. 02/28/21 Unknown Rx Famotidine [Pepcid] 20 mg PO BID #30 tablet 02/28/21 Unknown Rx Sulfamethoxazole/Trimethoprim 1 each PO BID #14 tablet 02/28/21 Unknown Rx [Bactrim DS TAB] Sulfamethoxazole/Trimethoprim 1 each PO BID 7 Days #14 tablet 10/21/21 Unknown Rx [Bactrim DS TAB] traMADoL [Ultram 50 MG tab] 50 mg PO Q6HR PRN #10 tablet 10/21/21 Unknown Rx ED Physical Exam - General Limitations: No Limitations General appearance: alert, in no apparent distress - Head Head exam: Present: atraumatic, normocephalic - Eye Eye exam: Present: normal appearance - ENT ENT exam: Present: mucous membranes moist - Neurological Exam Neurological exam: Present: alert, oriented X3 - Psychiatric Psychiatric exam: Present: normal affect, normal mood - Skin Skin exam: Present: warm, dry, other (2 cm area of induration and erythema present to the left axilla, no fluctuance, no opening, no drainage, no necrosis, no significant surrounding cellulitis) ED Course Vital Signs 10/21/21 10/21/21 10/21/21 11:50 13:34 13:40 Temperature 98.5 F Pulse Rate 85 84 Respiratory 20 17 Rate Blood Pressure 185/119 Blood Pressure 184/98 [Left] O2 Sat by Pulse 96 98 100 Oximetry ED Medical Decision Making - Lab Data Vital Signs 10/21/21 10/21/21 10/21/21 11:50 13:34 13:40 Temperature 98.5 F Pulse Rate 85 84 Respiratory 20 17 Rate Blood Pressure 185/119 Blood Pressure 184/98 [Left] O2 Sat by Pulse 96 98 100 Oximetry - Medical Decision Making Patient is a 46-year-old female presents emergency room complaints of a lump present to the left axilla that began 2 days ago. She reports that it is p ainful. She states that she has had this in the past and they usually opened and drained on their own. She has never had to have an I&D. She denies any drainage, fever, vomiting. Past medical history of hypertension and states that she takes amlodipine 10 mg daily. She reports that when she saw her primary care doctor 3 months ago her blood pressure was elevated then also. No allergies to medications. Vitals with elevated blood pressure, diastolic improved upon repeat. On exam:2 cm area of induration and erythema present to the left axilla, no fluctuance, no opening, no drainage, no necrosis, no significant surrounding cellulitis. Examination appears consistent with axillary cellulitis with possible early abscess formation, there is no drainable abscess at this time. Discussed with patient a trial of p.o. antibiotics and warm compresses but advised patient that if it did not improve she would need to return to the emergency room for possible I&D. Patient verbalized understan lisa. Advised patient Please take medication as prescribed. Please do warm compresses 3 times a day. Follow-up with your primary care doctor to have area reexamined. Return to emergency room for any new or worsening symptoms. Please follow-up with your primary care doctor regarding the elevation your blood pressure during today's visit. Eat a low-sodium diet. Incorporate 30-60 minutes of daily exercise. increase your water intake. Keep a blood pressure log and take this to the primary care doctor. Critical care attestation.: If time is entered above; I have spent that time in minutes in the direct care of this critically ill patient, excluding procedure time. ED Disposition Clinical Impression: Elevated blood pressure reading Cellulitis Qualifiers: Site of cellulitis: extremity Site of cellulitis of extremity: axilla L aterality: left Qualified Code(s): L03.112 - Cellulitis of left axilla Disposition: HOME / SELF CARE / HOMELESS Is pt being admited?: No Does the pt Need Aspirin: No Condition: Stable Instructions: Cellulitis, Adult, Managing Your Hypertension Additional Instructions: Please take medication as prescribed. Please do warm compresses 3 times a day. Follow-up with your primary care doctor to have area reexamined. Return to emergency room for any new or worsening symptoms. Please follow-up with your primary care doctor regarding the elevation your blood pressure during today's visit. Eat a low-sodium diet. Incorporate 30-60 minutes of daily exercise. increase your water intake. Keep a blood pressure log and take this to the primary care doctor. Prescriptions: Sulfamethoxazole/Trimethoprim [Bactrim DS TAB] 1 each PO BID 7 Days #14 tablet traMADoL [Ultram 50 MG tab] 50 mg PO Q6HR PRN #10 tablet PRN Reason: Pain , Severe (7-10) Referrals: your, primary care doctor [Other] - 2-3 Days Forms: Work/School Release Form(ED) Time of Disposition: 13:25 Print Language: ARMENIAN
[2021-10-21 13:41] VITALS: BP 184/98
== END 2021-10-21 13:41 | disposition home or self-care (01) ==
LOC: ED 11:31
DX: L03.112 Cellulitis of left axilla (principal); R03.0 Elevated blood-pressure reading, without diagnosis of hypertension; I10 Essential (primary) hypertension; G43.909 Migraine, unspecified, not intractable, without status migrainosus; K21.9 Gastro-esophageal reflux disease without esophagitis; Z90.49 Acquired absence of other specified parts of digestive tract; Z98.890 Other specified postprocedural states; Z98.51 Tubal ligation status; Z79.899 Other long term (current) drug therapy
CPT/HCPCS: 99282

== ENCOUNTER 2021-11-29 09:16 | Emergency (ER) | payer OTHER | END 2021-11-29 10:36 | disposition left against medical advice (07) | LOC: ED 09:16 | DX: R51.9 Headache, unspecified (principal); Z53.21 Procedure and treatment not carried out due to patient leaving prior to being seen by health care provider ==

== ENCOUNTER 2021-12-14 13:41 | Emergency (ER) | payer OTHER ==
[2021-12-14 16:43] VITALS: BP 172/111
[2021-12-14] MEDS ORDERED: predniSONE 20 MG TAB PO ONE (17:06)
[2021-12-14] MEDS ORDERED: CYCLOBENZAPRINE 10 MG TAB PO ONE (17:06)
[2021-12-14] MEDS ORDERED: KETOROLAC 10 MG TAB PO ONE (17:07)
--- NOTE | 2021-12-14 17:15 | Emergency Department Report ---
ED Neck Pain HPI Chief Complaint: Extremity Injury, Upper Stated Complaint: SHARP PAIN LFT SIDE Time Seen by Provider: 12/14/21 17:06 Duration: 2 weeks Neck Pain Location: Posterior Neck, Lateral Neck Severity: severe Symptoms: Yes Pain with Movement, Yes Radiation to Left Upper Ext, Yes Numbness, No Radiation to Right Upper Ext, No Weakness, No Previous History Other History: 46 yof with pmh of HTN presents to ed for evalution of posterior neck pain that radiates down her left arm. She denies injury and states that pain is worse with certain movements and improved with other ones. She describes pain as deep, burning with intermittent numbness and tingling. Pain is 10/10. ED Review of Systems ROS: Stated complaint: SHARP PAIN LFT SIDE Other details as noted in HPI Comment: All other systems reviewed and negative Constitutional: no symptoms reported Respiratory: no symptoms reported. denies: shortness of breath Cardiovascular: denies: chest pain, dyspnea on exertion, syncope Endocrine: no symptoms reported Gastrointestinal: denies: abdominal pain, nausea, vomiting Genitourinary: denies: urgency, dysuria Musculoskeletal: denies: back pain Skin: denies: rash Neurological: numbness, paresthesias. denies: headache, weakness ED Past Medical Hx - Past Medical History Hx Hypertension: Yes Hx Congestive Heart Failure: No Hx Diabetes: No Hx GERD: Yes Hx Headaches / Migraines: Yes Hx Asthma: No Hx COPD: No Additional medical history: Gastric Ulcers - Surgical History Hx Cholecystectomy: Yes Additional Surgical History: C section X4. Hysterectomy. Tubal ligation. - Social History Smoking Status: Never Smoker Substance Use Type: None - Medications Home Medications: Home Medications Medication Instructions Recorded Confirmed Last Taken Type AtorvaSTATin [Lipitor] 40 mg PO QHS #30 tablet 03/10/19 Unknown Rx Omeprazole 20 mg PO DAILY #30 tablet. 03/10/19 Unknown Rx amLODIPine 10 mg PO DAILY #30 tablet 03/10/19 Unknown Rx Albuterol Mdi (or & Nicu Only) 2 puff IH QID PRN #1 inhalation 01/26/20 Unknown Rx [ProAir HFA Inhaler] Amlodipine Besylate [Norvasc] 5 mg PO QDAY #30 tablet 10/06/20 Unknown Rx Esomeprazole Magnesium [NexIUM] 40 mg PO QDAY #30 capsule. 02/28/21 Unknown Rx Famotidine [Pepcid] 20 mg PO BID #30 tablet 02/28/21 Unknown Rx Sulfamethoxazole/Trimethoprim 1 each PO BID #14 tablet 02/28/21 Unknown Rx [Bactrim DS TAB] Sulfamethoxazole/Trimethoprim 1 each PO BID 7 Days #14 tablet 10/21/21 Unknown Rx [Bactrim DS TAB] traMADoL [Ultram 50 MG tab] 50 mg PO Q6HR PRN #10 tablet 10/21/21 Unknown Rx Cyclobenzaprine [Flexeril] 10 mg PO TID PRN #21 tab 12/14/21 Unknown Rx Naproxen [Naprosyn] 500 mg PO BID #14 tab 12/14/21 Unknown Rx methylPREDNISolone [Medrol 4MG 4 mg PO DAILY #1 pack 12/14/21 Unknown Rx DOSEPAK (21 tabs)] Neck Pain Exam - Exam General: Vital signs noted. No distress. Alert and acting appropriately. HEENT: No Facial Pain, No Scalp Tenderness Neck Pain: Yes Left Paraspinal Tenderness, Yes Left Trapezius Tenderness, Yes Pain with Rotation Left, Yes Pain with L Lateral Flexion, No Midline Tenderness, No Right Paraspinal Tenderness, No Right Trapezius Tenderness, No Pain with Rotation Right, No Pain with Extension Chest: Yes Clear Lung Sounds, No Pain with Respirations Heart: Yes Regular Back: No Thoracic Tenderness, No Lumbar Tenderness Neuro: Yes Numbness, Yes Radicular Deficits (tenderness to neck and pain impr oves with palpation to left neck. ), No Weakness ED Course Vital Signs 12/14/21 16:42 Temperature 98.1 F Pulse Rate 78 Respiratory 16 Rate Blood Pressure 172/111 [Left] O2 Sat by Pulse 100 Oximetry ED Medical Decision Making - Medical Decision Making 46 yof with pmh of HTN presents to ed for evalution of posterior neck pain that radiates down her left arm. She denies injury and states that pain is worse with certain movements and improved with other ones. She describes pain as deep, burning with intermittent numbness and tingling. Pain is 10/10. Pain is consistent with cervical radicular pain. Patient will be given steroids, toradol and flexeril in ED then sent home with medrol dose pack. She is encouraged to follow up with pcp if no improvement or worsening symptoms. Critical care attestation.: If time is entered above; I have spent that time in minutes in the direct care of this critically ill patient, excluding procedure time. ED Disposition Clinical Impression: Cervical radicular pain Disposition: 01 HOME / SELF CARE / HOMELESS Is pt being admited?: No Does the pt Need Aspirin: No Instructions: Cervical Radiculopathy Additional Instructions: Take medications as prescribed. Follow-up with primary care provider or orthopedics if no improvement or worsening symptoms. Prescriptions: Cyclobenzaprine [Flexeril] 10 mg PO TID PRN #21 tab PRN Reason: Muscle Spasm methylPREDNISolone [Medrol 4MG DOSEPAK (21 tabs)] 4 mg PO DAILY #1 pack Naproxen [Naprosyn] 500 mg PO BID #14 tab Referrals: PRIMARY CAREMD [Primary Care Provider] - 3-5 Days MAURICIO RODRIGUEZ MD [Staff Physician] - 3-5 Days Forms: Work/School Release Form(ED) Time of Disposition: 17:14
== END 2021-12-15 03:41 | disposition home or self-care (01) ==
LOC: ED 13:41
DX: M54.12 Radiculopathy, cervical region (principal); I10 Essential (primary) hypertension; K21.9 Gastro-esophageal reflux disease without esophagitis; G43.909 Migraine, unspecified, not intractable, without status migrainosus; Z90.710 Acquired absence of both cervix and uterus; Z98.51 Tubal ligation status; Z98.890 Other specified postprocedural states
CPT/HCPCS: 99282

== ENCOUNTER 2022-02-26 16:20 | Emergency (ER) | payer OTHER ==
[2022-02-26] MEDS ORDERED: DEXAMETHASONE 4 MG TAB PO ONE (18:39)
[2022-02-26] MEDS ORDERED: KETOROLAC 10 MG TAB PO ONE (18:39)
--- NOTE | 2022-02-26 18:43 | Emergency Department Report ---
ED General Adult HPI - General Chief complaint: Pain General Stated complaint: MUSCLE PAIN/HAND/LEGS Time Seen by Provider: 02/26/22 17:38 Source: patient Mode of arrival: Ambulatory Limitations: No Limitations - History of Present Illness Initial comments: 46-year-old Black female presents to the emergency department for evaluation of bilateral wrist and thigh pain. Patient denies injury or trauma but states that she has a history of recurrent chronic wrist and leg pain. She states that she has not done any different activities but is just hurting more than usual today. She states that pain is 5 out of 10. She states that she has not taken any medication at home for pain. -: Gradual, days(s) Location: upper extremity (Bilateral thighs bilateral wrist), lower extremity Severity scale (0 -10): 5 Quality: aching Consistency: constant Worsens with: movement Associated Symptoms: denies other symptoms Treatments Prior to Arrival: none - Related Data Previous Rx's Medication Instructions Recorded Last Taken Type AtorvaSTATin [Lipitor] 40 mg PO QHS #30 tablet 03/10/19 Unknown Rx Omeprazole 20 mg PO DAILY #30 tablet. 03/10/19 Unknown Rx amLODIPine 10 mg PO DAILY #30 tablet 03/10/19 Unknown Rx Albuterol Mdi (or & Nicu Only) 2 puff IH QID PRN #1 inhalation 01/26/20 Unknown Rx [ProAir HFA Inhaler] Amlodipine Besylate [Norvasc] 5 mg PO QDAY #30 tablet 10/06/20 Unknown Rx Esomeprazole Magnesium [NexIUM] 40 mg PO QDAY #30 capsule. 02/28/21 Unknown Rx Famotidine [Pepcid] 20 mg PO BID #30 tablet 02/28/21 Unknown Rx Sulfamethoxazole/Trimethoprim 1 each PO BID #14 tablet 02/28/21 Unknown Rx [Bactrim DS TAB] Sulfamethoxazole/Trimethoprim 1 each PO BID 7 Days #14 tablet 10/21/21 Unknown Rx [Bactrim DS TAB] traMADoL [Ultram 50 MG tab] 50 mg PO Q6HR PRN #10 tablet 10/21/21 Unknown Rx Cyclobenzaprine [Flexeril] 10 mg PO TID PRN #21 tab 12/14/21 Unknown Rx Naproxen [Naprosyn] 500 mg PO BID #14 tab 12/14/21 Unknown Rx methylPREDNISolone [Medrol 4MG 4 mg PO DAILY #1 pack 12/14/21 Unknown Rx DOSEPAK (21 tabs)] Naproxen [Naprosyn] 500 mg PO BID #14 tab 02/26/22 Unknown Rx Allergies Allergy/AdvReac Type Severity Reaction Status Date / Time No Known Allergies Allergy Verified 02/26/22 17:43 ED Review of Systems ROS: Stated complaint: MUSCLE PAIN/HAND/LEGS Other details as noted in HPI Comment: All other systems reviewed and negative Constitutional: denies: chills, fever Respiratory: denies: cough, shortness of breath, SOB with exertion, SOB at rest Cardiovascular: denies: chest pain, palpitations Gastrointestinal: denies: abdominal pain, nausea, vomiting Musculoskeletal: denies: back pain Neurological: denies: headache, weakness ED Past Medical Hx - Past Medical History Previous Medical History?: Yes Hx Hypertension: Yes Hx Congestive Heart Failure: No Hx Diabetes: No Hx GERD: Yes Hx Headaches / Migraines: Yes Hx Asthma: No Hx COPD: No Additional medical history: Gastric Ulcers - Surgical History Past Surgical History?: Yes Hx Cholecystectomy: Yes Additional Surgical History: C section X4. Hysterectomy. Tubal ligation. - Social History Smoking Status: Never Smoker Substance Use Type: None - Medications Home Medications: Home Medications Medication Instructions Recorded Confirmed Last Taken Type AtorvaSTATin [Lipitor] 40 mg PO QHS #30 tablet 03/10/19 02/26/22 Unknown Rx Omeprazole 20 mg PO DAILY #30 tablet. 03/10/19 02/26/22 Unknown Rx amLODIPine 10 mg PO DAILY #30 tablet 03/10/19 02/26/22 Unknown Rx Albuterol Mdi (or & Nicu Only) 2 puff IH QID PRN #1 inhalation 01/26/20 02/26/22 Unknown Rx [ProAir HFA Inhaler] Amlodipine Besylate [Norvasc] 5 mg PO QDAY #30 tablet 10/06/20 02/26/22 Unknown Rx Esomeprazole Magnesium [NexIUM] 40 mg PO QDAY #30 capsule. 02/28/21 02/26/22 Unknown Rx Famotidine [Pepcid] 20 mg PO BID #30 tablet 02/28/21 02/26/22 Unknown Rx Sulfamethoxazole/Trimethoprim 1 each PO BID #14 tablet 02/28/21 02/26/22 Unknown Rx [Bactrim DS TAB] Sulfamethoxazole/Trimethoprim 1 each PO BID 7 Days #14 tablet 10/21/21 02/26/22 Unknown Rx [Bactrim DS TAB] traMADoL [Ultram 50 MG tab] 50 mg PO Q6HR PRN #10 tablet 10/21/21 02/26/22 Unknown Rx Cyclobenzaprine [Flexeril] 10 mg PO TID PRN #21 tab 12/14/21 02/26/22 Unknown Rx Naproxen [Naprosyn] 500 mg PO BID #14 tab 12/14/21 02/26/22 Unknown Rx methylPREDNISolone [Medrol 4MG 4 mg PO DAILY #1 pack 12/14/21 02/26/22 Unknown Rx DOSEPAK (21 tabs)] Naproxen [Naprosyn] 500 mg PO BID #14 tab 02/26/22 Unknown Rx ED Physical Exam - General Limitations: No Limitations General appearance: alert, in no apparent distress - Head Head exam: Present: atraumatic, normocephalic - Eye Eye exam: Present: normal appearance. Absent: conjunctival injection - Neck Neck exam: Present: normal inspection. Absent: tenderness, lymphadenopathy - Respiratory Respiratory exam: Absent: respiratory distress - Cardiovascular Cardiovascular Exam: Present: regular rate - GI/Abdominal GI/Abdominal exam: Absent: distended - Extremities Exam Extremities exam: Present: normal inspection, other (Tenderness to bilateral wrists and thigh area with palpation.) - Back Exam Back exam: Present: normal inspection. Absent: CVA tenderness (R), CVA tenderness (L) - Neurological Exam Neurological exam: Present: alert, oriented X3 - Psychiatric Psychiatric exam: Present: normal affect - Skin Skin exam: Present: warm, dry, intact, normal color ED Course Vital Signs 02/26/22 02/26/22 02/26/22 16:25 17:40 19:22 Temperature 98.1 F 97.8 F 98.0 F Pulse Rate 91 H 80 77 Respiratory 20 18 20 Rate Blood Pressure 164/119 152/85 124/78 [Right] O2 Sat by Pulse 99 99 99 Oximetry ED Medical Decision Making - Medical Decision Making 46-year-old Black female presents to the emergency department for evaluation of bilateral wrist and thigh pain. Patient denies injury or trauma but states that she has a history of recurrent chronic wrist and leg pain. She states that she has not done any different activities but is just hurting more than usual today. She states that pain is 5 out of 10. She states that she has not taken any medication at home for pain. No acute abnormalities noted on assessment. Patient treated with a one-time dose of Toradol and advised to use Tylenol or Motrin as needed for for pain at home. She is advised to follow-up with her primary care provider for further evaluation and management. She verbalized understanding of and agreement with plan of care. Critical care attestation.: If time is entered above; I have spent that time in minutes in the direct care of this critically ill patient, excluding procedure time. ED Disposition Clinical Impression: Bilateral wrist pain, Bilateral leg pain Disposition: 01 HOME / SELF CARE / HOMELESS Is pt being admited?: No Does the pt Need Aspirin: No Condition: Stable Instructions: How to Use Cold Therapy, [id number], Pain Without a Known Cause, Wrist Pain, Adult Additional Instructions: Take medications as prescribed. Follow-up with primary care provider if no improvement or worsening symptoms. Prescriptions: Naproxen [Naprosyn] 500 mg PO BID #14 tab Referrals: ZEENAT BENNETT MD [Referring] - 3-5 Days Time of Disposition: 18:42
[2022-02-26 19:22] VITALS: BP 124/78
== END 2022-02-26 19:22 | disposition home or self-care (01) ==
LOC: ED 16:20
DX: M25.531 Pain in right wrist (principal); M25.532 Pain in left wrist; M79.604 Pain in right leg; M79.605 Pain in left leg; I10 Essential (primary) hypertension; K21.9 Gastro-esophageal reflux disease without esophagitis; G43.909 Migraine, unspecified, not intractable, without status migrainosus; Z90.710 Acquired absence of both cervix and uterus; Z94.9 Transplanted organ and tissue status, unspecified; Z98.51 Tubal ligation status; Z79.899 Other long term (current) drug therapy
CPT/HCPCS: 99282; J8540